=== PATIENT | male | born 1950 | race Caucasian/White ===

== ENCOUNTER 2017-02-25 12:34 | Emergency (ER) | payer BC ==
[~2017-02-25] VITALS: Ht 172.7 cm; Wt 68.0 kg
[~2017-02-25 12:34] MED LIST: ASPI81TA28 PO; ATOR-24 PO; CLB/200 PO; EPP3/2 IM; GABA-113 PO; MAGN400T6 PO; METO25TA3 PO; NCYSR50 PO; OSEL75CA12 PO; POTA20TA16 PO; SILO8CAP PO; TIOTCAP INH; ZNTT/150 PO
[2017-02-25 12:37] VITALS: Ht 172.7 cm; Wt 68.0 kg
[2017-02-25] MEDS ORDERED: SODIUM CHLORIDE 0.9% 1000ML 1,000 ML IV STA (12:59)
--- NOTE | 2017-02-25 13:01 | EMERGENCY ROOM VISIT NOTE ---
History First contact with patient: 12:47 Chief Complaint: ABDOMINAL PAIN Stated Complaint: PAIN IN R SIDE LIMITED MOTION Nursing Triage Summary: pt has had right lower side of abd pain for several weeks that hurts more in the am and today it did not get better no known injury no groin no urinary complaints no n/v/d History of Present Illness The patient is a 67 year old male who presents to the Emergency Room with complaints of right flank pain. The patient states that he has had pain in the right flank for the last several weeks. The patient states that he had been intermittent and worse with movement until this morning when the pain has become constant and persistent. He rates his discomfort a 3/10. He denies any known fall or injury. He denies any fevers. He denies any pain in his chest or trouble breathing. He denies any abdominal pain, nausea or vomiting. He denies any dysuric emergency, frequency or hematuria. He denies any numbness, tingling, weakness in the lower extremities. He denies any loss of bowel or bladder control. He reports a history of chronic back pain. He denies any history of kidney stone. Review of Systems A 10 system review of systems was completed with positives and pertinent negatives listed in the HPI. Past Medical/Surgical History Medical Problems: (1) Chronic low back pain (2) Hypertension (3) Rheumatic fever Surgical Problems: (1) H/O cardiac catheterization Family History Heart disease Hypertension Social History Smoking Status: Never Smoker Marital Status: Housing Status: lives with family Occupation Status: employed Current/Historical Medications Scheduled Aspirin (Aspirin Ec), 81 MG PO DAILY Atorvastatin (Lipitor), 40 MG PO DAILY Celecoxib (CeleBREX), 1 CAP PO DAILY Epinephrine (Epipen), 0.3 MG IM UD Gabapentin (Neurontin), 300 MG PO DAILY Magnesium Oxide (Mag-Ox), 400 MG PO QAM Metoprolol Succ (Toprol Xl) (Toprol-Xl), 12.5 MG PO BID Potassium Ext Rel (Klor-Con), 20 MEQ PO QAM Ranitidine (Zantac), 150 MG PO BID Silodosin (Rapaflo), 8 MG PO HS Tapentadol HCl (Nucynta ER), 50 MG PO DAILY Tiotropium [place] (Spiriva Handihaler), 1 CAP INH DAILY Allergies Coded Allergies: BEE STING (Verified Allergy, Unknown, localized swelling, 02/25/17) Penicillins (Verified Allergy, Unknown, rash, 02/25/17) Poison Tiffany Extract/Poison [place] Extra (Verified Allergy, Unknown, rash, ) Tetracycline (Verified Adverse Reaction, Unknown, STAINS TEETH, 02/25/17) Physical Exam Vital Signs Date Time Temp Pulse Resp B/P (MAP) Pulse Ox O2 Delivery O2 Flow Rate FiO2 02/25/17 15:26 36.8 44 16 142/67 97 02/25/17 15:01 44 16 142/67 97 Room Air 02/25/17 14:31 43 16 128/62 95 Room Air 02/25/17 12:37 36.8 45 18 132/67 98 Physical Exam VITALS: Vitals are noted on the nurse's note and reviewed by myself. Vital signs stable. The patient is afebrile. GENERAL: This is a 67-year-old male, in no acute distress, nondiaphoretic, well- developed well-nourished. SKIN: The skin was without rashes, erythema, edema, or bruising. There is no tenting of the skin. Capillary reflex less than 2 seconds. HEAD: Normocephalic atraumatic. EARS: The external ears are normal in appearance EYES: Pupils equal round and reactive to light and accommodation. Conjunctivae without injection, sclerae without icterus. Extraocular movements intact. NOSE: Patent, turbinates without inflammation or discharge. MOUTH: Mucous membranes moist. Tonsils are not enlarged. Pharynx without erythema or exudate. Uvula midline. Airway patent. Tongue does not deviate. NECK: Supple without nuchal rigidity. No JVD. HEART: Regular rate and rhythm without murmurs gallops or rubs. LUNGS: Clear to auscultation bilaterally without wheezes, rales or rhonchi. No retractions or accessory muscle use. ABDOMEN: Positive bowel sounds x 4. Soft, nontender, without masses or organomegaly. Vallecillo sign negative. MUSCULOSKELETAL: No muscle atrophy, erythema, or edema noted. Full range of motion without joint tenderness in all extremities. No tenderness to palpation. Normal gait. Strength 5/5 throughout. NEURO: Patient was alert and oriented to person place and time. Normal sensation to light and sharp touch. Deep tendon reflexes 2+ throughout. No focal neurological deficits. Medical Decision & Procedures ER Provider Diagnostic Interpretation: CT SCAN OF THE ABDOMEN AND PELVIS WITHOUT IV CONTRAST CLINICAL HISTORY: Right flank pain. COMPARISON STUDY: Abdominal CT dated 10/05/2015. TECHNIQUE: CT scan of the abdomen and pelvis is performed from the lung bases to the proximal femora. Images are reviewed in the axial, sagittal, and coronal planes. IV contrast was not administered for this examination as per the referring clinician. Automated dose control exposure was utilized. CT DOSE: 717.60 mGy.cm FINDINGS: Lung bases: The heart is mildly enlarged and without pericardial effusion. The lung bases are clear. Liver: The unenhanced liver is normal in size, contour, and attenuation. There is no intrahepatic biliary ductal dilatation. There are 2 cysts in the left lobe of the liver measuring up to 1.7 cm. Gallbladder: Contracted. Spleen: Normal in size and attenuation. Pancreas: Unenhanced pancreas demonstrates mild to moderate glandular atrophy and is grossly unremarkable. Adrenal glands: Unremarkable. Kidneys: The unenhanced kidneys demonstrate cortical atrophy and are without hydronephrosis. There are no renal calculi identified. There are bilateral renal cysts. The largest is on the right and measures 6 cm. Abdominal vasculature: The abdominal aorta is normal in course and caliber noting advanced atherosclerotic calcification. Bowel: The small bowel and colon are normal in course and caliber. Moderate fecal retention is noted in the right colon. The appendix is well-visualized and normal. Peritoneum: There is no intraperitoneal free air. There is a small volume of free fluid in the pelvis. There is a small fat-containing umbilical hernia. Lymphadenopathy: None. Pelvic viscera: The prostate gland is markedly enlarged and heterogeneous, measuring 6 cm in transverse diameter. The bladder wall is thickened and trabeculated suggesting the sequelae of chronic outlet obstruction. Skeletal structures: There is moderate lumbosacral spondylosis as well as scoliosis. No lytic or blastic lesions are seen. IMPRESSION: 1. There is trace free fluid in the pelvis. This is a nonspecific but abnormal finding and may be on a reactive basis. 2. No renal calculi are identified as clinically queried and there is no hydronephrosis. 3. Moderate fecal retention is noted in the right colon. 4. The prostate gland is markedly enlarged and heterogeneous. There is evidence of chronic bladder obstruction. Follow-up with serum PSA levels is recommended. 5. Additional findings as above. Laboratory Results 02/25/17 13:15 Red Blood Count 4.67, Mean Corpuscular Volume 93.4, Mean Corpuscular Hemoglobin 32.1, Mean Corpuscular Hemoglobin Concent 34.4, Mean Platelet Volume 9.8, Neutrophils (%) (Auto) 56.4, Lymphocytes (%) (Auto) 31.1, Monocytes (%) (Auto) 9.2, Eosinophils (%) (Auto) 2.8, Basophils (%) (Auto) 0.5, Neutrophils # (Auto) 3.17, Lymphocytes # (Auto) 1.75, Monocytes # (Auto) 0.52, Eosinophils # (Auto) 0.16, Basophils # (Auto) 0.03 02/25/17 13:15 Test 02/25/17 13:15 White Blood Count 5.63 K/uL (4.8-10.8) Red Blood Count 4.67 M/uL (4.7-6.1) Hemoglobin 15.0 g/dL (14.0-18.0) Hematocrit 43.6 % (42-52) Mean Corpuscular Volume 93.4 fL (80-100) Mean Corpuscular Hemoglobin 32.1 pg (25-34) Mean Corpuscular Hemoglobin Concent 34.4 g/dl (32-36) Platelet Count 193 K/uL (130-400) Mean Platelet Volume 9.8 fL (7.4-10.4) Neutrophils (%) (Auto) 56.4 % Lymphocytes (%) (Auto) 31.1 % Monocytes (%) (Auto) 9.2 % Eosinophils (%) (Auto) 2.8 % Basophils (%) (Auto) 0.5 % Neutrophils # (Auto) 3.17 K/uL (1.4-6.5) Lymphocytes # (Auto) 1.75 K/uL (1.2-3.4) Monocytes # (Auto) 0.52 K/uL (0.11-0.59) Eosinophils # (Auto) 0.16 K/uL (0-0.5) Basophils # (Auto) 0.03 K/uL (0-0.2) RDW Standard Deviation 46.6 fL (36.4-46.3) RDW Coefficient of Variation 13.7 % (11.5-14.5) Immature Granulocyte % (Auto) 0.0 % Immature Granulocyte # (Auto) 0.00 K/uL (0.00-0.02) Urine Color YELLOW Urine Appearance CLEAR (CLEAR) Urine pH 7.0 (4.5-7.5) Urine Specific [place] 1.022 (1.000-1.030) Urine Protein NEG (NEG) Urine Glucose (UA) NEG (NEG) Urine Ketones NEG (NEG) Urine Occult Blood NEG (NEG) Urine Nitrite NEG (NEG) Urine Bilirubin NEG (NEG) Urine Urobilinogen NEG (NEG) Urine Leukocyte Esterase NEG (NEG) Anion Gap 5.0 mmol/L (3-11) Est Creatinine Clear Calc Drug Dose 86.2 ml/min Estimated GFR () 107.1 Estimated GFR (Non- 92.4 BUN/Creatinine Ratio 23.5 (10-20) Calcium Level 8.4 mg/dl (8.5-10.1) Total Bilirubin 0.4 mg/dl (0.2-1) Aspartate Amino Transf (AST/SGOT) 20 U/L (15-37) Alanine Aminotransferase (ALT/SGPT) 27 U/L (12-78) Alkaline Phosphatase 51 U/L (45-117) Total Protein 6.3 gm/dl (6.4-8.2) Albumin 3.6 gm/dl (3.4-5.0) Globulin 2.7 gm/dl (2.5-4.0) Albumin/Globulin Ratio 1.3 (0.9-2) Lipase 138 U/L (73-393) ED Course The patient was seen and examined. Previous visits were reviewed. The patient does not have a fever or leukocytosis. He does not have any significant electrolyte abnormalities. Lipase was not elevated. Urinalysis was negative. CT imaging was obtained as above. The patient has bilateral renal cysts which he states are known There is a liver cyst which the patient was advised of The patient has enlargement of the prostate which he states has been ongoing. He also had surgery for a urachal cyst. He sees Dr. Quinn. The patient presents with right-sided flank pain. His pain is primarily worse with movement and may be musculoskeletal in nature. He does have some abnormal findings on CT imaging but most of which are known. The exact etiology of the patient's pain is not clear at this time. He should follow-up with his family doctor and urology for further evaluation and management. He should return to the ER with any worsening symptoms. Additionally, the patient was noted to have episodes of bradycardia. I did review previous visits even from 2014 and he was persistently bradycardic at those times. He states that he is quite active. The patient was also seen and examined by who agrees with the assessment and treatment plan. Medication Reconciliation: I attest that I have personally reviewed the patient' s current medication list. Blood pressure screening: The patient was found to have normal blood pressure on screening and does not require follow-up Medical Decision DIFFERENTIAL DIAGNOSIS: Hepatitis, cholecystitis, cholangitis, biliary colic, pancreatitis, pneumonia, subdiaphragmatic abscess, appendicitis, inguinal hernia , nephrolithiasis, inflammatory bowel disease, mesenteric adenitis, peptic ulcer disease, GERD, gastritis, pancreatitis, myocardial infarction, pericarditis, ruptured aortic aneurysm, appendicitis, gastroenteritis, bowel obstruction, splenic infarct, diverticulitis, mesenteric ischemia, metabolic, peritonitis, among others. Impression Primary Impression: Flank pain Departure Information Dispostion Home / Self-Care Condition GOOD Referrals Lu Lindo M.D. (PCP) Ye Quinn MD, Urology Patient Instructions ED Flank Pain Uncertain Cause, My [facility] Additional Instructions Continue your medications Increase the stool softener/laxative Contact urology tomorrow to schedule a follow-up appointment for further evaluation and management Return with any worsening symptoms
[2017-02-25] MEDS ORDERED: SPRIN/30 INH (13:02)
--- NOTE | 2017-02-25 13:40 | DIAGNOSTIC IMAGING REPORT ---
CT SCAN OF THE ABDOMEN AND PELVIS WITHOUT IV CONTRAST CLINICAL HISTORY: Right flank pain. COMPARISON STUDY: Abdominal CT dated 10/05/2015. TECHNIQUE: CT scan of the abdomen and pelvis is performed from the lung bases to the proximal femora. Images are reviewed in the axial, sagittal, and coronal planes. IV contrast was not administered for this examination as per the referring clinician. Automated dose control exposure was utilized. CT DOSE: 717.60 mGy.cm FINDINGS: Lung bases: The heart is mildly enlarged and without pericardial effusion. The lung bases are clear. Liver: The unenhanced liver is normal in size, contour, and attenuation. There is no intrahepatic biliary ductal dilatation. There are 2 cysts in the left lobe of the liver measuring up to 1.7 cm. Gallbladder: Contracted. Spleen: Normal in size and attenuation. Pancreas: Unenhanced pancreas demonstrates mild to moderate glandular atrophy and is grossly unremarkable. Adrenal glands: Unremarkable. Kidneys: The unenhanced kidneys demonstrate cortical atrophy and are without hydronephrosis. There are no renal calculi identified. There are bilateral renal cysts. The largest is on the right and measures 6 cm. Abdominal vasculature: The abdominal aorta is normal in course and caliber noting advanced atherosclerotic calcification. Bowel: The small bowel and colon are normal in course and caliber. Moderate fecal retention is noted in the right colon. The appendix is well-visualized and normal. Peritoneum: There is no intraperitoneal free air. There is a small volume of free fluid in the pelvis. There is a small fat-containing umbilical hernia. Lymphadenopathy: None. Pelvic viscera: The prostate gland is markedly enlarged and heterogeneous, measuring 6 cm in transverse diameter. The bladder wall is thickened and trabeculated suggesting the sequelae of chronic outlet obstruction. Skeletal structures: There is moderate lumbosacral spondylosis as well as scoliosis. No lytic or blastic lesions are seen. IMPRESSION: 1. There is trace free fluid in the pelvis. This is a nonspecific but abnormal finding and may be on a reactive basis. 2. No renal calculi are identified as clinically queried and there is no hydronephrosis. 3. Moderate fecal retention is noted in the right colon. 4. The prostate gland is markedly enlarged and heterogeneous. There is evidence of chronic bladder obstruction. Follow-up with serum PSA levels is recommended. 5. Additional findings as above. Electronically signed by: Jay Mayes M.D. 02/25/2017 1:39 PM Dictated Date/Time: 02/25/2017 1:30 PM
[2017-02-25 13:44] LABS: BASO % 0.5 %; BASO ABS # 0.03 K/uL (0-0.2); COMPLETE YES; EOS % 2.8 %; HEMATOCRIT 43.6 % (42-52); LYMPH % 31.1 %; LYMPH ABS # 1.75 K/uL (1.2-3.4); MEAN CELL VOLUME 93.4 fL (80-100); MEAN CORPUSCULAR HEMOGLOBIN 32.1 pg (25-34); MEAN CORPUSCULAR HGB CONC 34.4 g/dl (32-36); MEAN PLATELET VOLUME 9.8 fL (7.4-10.4); MONO % 9.2 %; NEUT % 56.4 %; PLATELET COUNT 193 K/uL (130-400); RED BLOOD COUNT 4.67 M/uL (4.7-6.1); URINE APPEARANCE CLEAR (CLEAR); URINE BILIRUBIN NEG (NEG); URINE COLOR YELLOW; URINE NITRITE NEG (NEG); URINE SPECIFIC GRAVITY 1.022 (1.000-1.030); UROBILINOGEN NEG (NEG); WHITE BLOOD COUNT 5.63 K/uL (4.8-10.8); ZZUR CULT IF INDIC CLEAN CATCH NO
[2017-02-25 13:45] LABS: MANUAL MICROSCOPIC REQUIRED? NO; REVIEW REQ? NO
[2017-02-25 14:10] LABS: BUN/CREATININE RATIO 23.5 (10-20); CALCIUM 8.4 mg/dl (8.5-10.1); CREATININE 0.8 mg/dl (0.60-1.40); POTASSIUM 4.2 mmol/L (3.5-5.1)
[2017-02-25 14:13] LABS: ALB/GLOB RATIO 1.3 (0.9-2)
[2017-02-25 15:26] VITALS: BP 142/67; PULSE 44; TEMP 36.8; O2SAT 97
== END 2017-02-25 15:27 | disposition home or self-care (01) ==
LOC: C.EDB 12:35 → C.EDC 15:27
DX: R10.31 Right lower quadrant pain (principal); G89.29 Other chronic pain; M54.5 Low back pain; I10 Essential (primary) hypertension; Z86.19 Personal history of other infectious and parasitic diseases; Z82.49 Family history of ischemic heart disease and other diseases of the circulatory system; Z79.82 Long term (current) use of aspirin; N28.1 Cyst of kidney, acquired; K76.89 Other specified diseases of liver; N40.0 Benign prostatic hyperplasia without lower urinary tract symptoms

== ENCOUNTER → 2017-11-15 | Outpatient (CLI) | payer BC ==
[~2017-11-15] MED LIST changes: -OSEL75CA12 PO; +RANI150T85 PO; +SPRIN/30 INH; -TIOTCAP INH; -ZNTT/150 PO
--- NOTE | 2017-11-15 09:51 | DIAGNOSTIC IMAGING REPORT ---
CHEST 2 VIEWS ROUTINE CLINICAL HISTORY: R05 [id number] COMPARISON STUDY: No previous studies for comparison. FINDINGS: The cardiac and mediastinal contours are normal. There is no evidence of focal pulmonary consolidation. There is no evidence of failure. No pleural effusions are visualized.[ IMPRESSION: No active disease in the chest. Electronically signed by: Bakari Velasquez M.D. 11/15/2017 9:49 AM Dictated Date/Time: 11/15/2017 9:49 AM
== END | disposition home or self-care (01) ==
LOC: C.RAD1850 09:35
PROVIDERS: ATTEND Internal Medicine Pulmonary Disease
DX: R05 Cough (principal)

== ENCOUNTER 2023-09-30 12:01 | Observation (INO) ==
--- NOTE | 2023-09-30 12:08 | ED Triage Note ---
Date of Service September 30, 2023 Provider in Triage Author: Mónica Marvin History of Present Illness This patient was briefly evaluated while in triage. An abbreviated physical exam was performed. This patient is a 73-year-old Male who presents to the ED for evaluation hx of afib, HTN, pacemaker at home about 1 hr [employer], felt acutely dizzy laid down, and things were improved, but still didn't feel "right" no CP, SOB, no palpitations Physical Exam GENERAL: NAD, ambulatory into triage CARDIOVASCULAR: RRR RESPIRATORY: CTA ABDOMEN: BS x 4. Nontender to palpation. Initial orders for labs and / or imaging were placed and patient was placed in the waiting area until a bed is available. Please see further documentation for the full ED course.
--- OUTSIDE RECORDS SUMMARY | 2023-09-30 12:09 | External Medical Summary | Summary of Care ---
Author Name Unknown Organization [facility] Address [address] [place] [address] Phone [phone] Care Team Providers Care Elderly Sitter Name Role Phone Alphonso Sarabjit Renteria DO Primary Care Provider [phone] Encounter Details Date Type Department Care Team (Late st Contact Info) Description 09/21/2023 Result Scan Unspecified Department Rocío King DO [address] [place] [address] <No scans attached> Allergies Active Allergy Reactions Criticality Noted Date Comments Bee Stings 04/21/1998 systemic swelling and throat closes up Penicillins 09/25/1997 rash Poison Tiffany Extract Rash High 12/29/2003 Tetracyclines & Related 08/18/1998 causes brown stains on teeth documented as of this encounter (statuses as of 09/21/2023) Medications Medication Sig Dispensed Refills Start Date End Date Status VITAMINS & MINERALS PO CAPS Take by mouth daily with dinner. 0 02/27/2006 Active Magnesium Oxide 400 MG CapsuleIndications:A trial fibrillation, unspecified type (HCC) 1 daily 90 Cap 3 11/07/2016 Active Additional Information Patient taking differently: DINNER, 1 daily, Reported on 09/01/2022 EPINEPHrine, anaphylaxis, (EPI-PEN) 0.3 MG/0.3ML SOAJ injectionIndications :Bee sting allergy For a severe reaction: Place orange end against the outer thigh, press firmly, hold in place for 10 seconds and go to the Emergency room. 2 Device 1 11/27/2017 Active albuterol (PROVENTIL HFA) 108 (90 BASE) MCG/ACT inhalerIndications:C OPD, moderate ([facility]) Inhale 2 Puffs by mouth every 4 hours as needed for Wheezing. 1 Inhaler 3 11/27/2017 Active Coenzyme Q10 (COQ-10) 100 MG CAPS Take 1 Capsule by mouth daily with dinner. 0 Active Probiotic Product (PROBIOTIC ACIDOPHILUS BIOBEADS) Capsule Take 1 Capsule by mouth in the morning. 0 Active Ascorbic Acid (VITAMIN C) 1000 MG Tablet Take 1 Tablet by mouth daily at noon. 0 Active Cholecalciferol (VITAMIN D3) 25 MCG (1000 UT) CAPS Take by mouth daily with dinner. 0 Active Trelegy Ellipta 100-62.5-25 MCG/INH Aerosol Powder Breath ActivatedIndications :COPD, group A, by GOLD 2017 classification ([facility]) 0 05/20/2021 Acti ve Acetylcysteine 600 MG Oral Capsule (NAC) Take 1 Capsule by mouth in the morning and 1 Capsule in the evening. 0 Active Calcium Carbonate Antacid 500 MG Oral Tablet Chewable Take 2 Tablets by mouth at bedtime. 0 Active Super B-50 Complex Oral Capsule Take by mouth daily with dinner. 0 Active Tylenol PM Extra Strength 500-25 MG Oral Tablet (diphenhydrAMINE-APA P (sleep)) Take 1 Tablet by mouth at bedtime. 0 Active Docusate Sodium 100 MG Oral Capsule (Colace) Take 1 Capsule by mouth in the morning and 1 Capsule before bedtime. 0 Active Gabapentin 300 MG Oral Capsule (Neurontin)Indicatio ns:Degeneration of lumbosacral intervertebral disc Take 1 Capsule by mouth in the morning and 1 Capsule before bedtime. 180 Capsule 3 10/31/2022 Active Acetaminophen 500 MG Oral Tablet Take 1 Tablet by mouth every 6 hours as needed. 0 Active Ibuprofen 200 MG Oral Tablet Take 1 Tablet by mouth every 4 hours as needed. 0 Active Famotidine 40 MG Oral Tablet (Pepcid)Indications: Gastroesophageal reflux disease without esophagitis TAKE 1 TABLET IN THE MORNING AND 1 TABLET BEFORE BEDTIME 180 Tablet 3 07/06/2023 Active Celecoxib 100 MG Oral Capsule (CeleBREX)Indication s:Chronic pain syndrome Take 1 Capsule by mouth in the morning. 90 Capsule 2 07/17/2023 Active Atorvastatin Calcium 40 MG Oral Tablet (Lipitor)Indications :Mixed dyslipidemia TAKE 1 TABLET IN THE EVENING FOR CHOLESTEROL 90 Tablet 3 07/19/2023 Active Metoprolol Succinate ER 25 MG Oral Tablet Extended Release 24 Hour (toPROL XL)Indications:SSS (sick sinus syndrome) (HCC),Tachy-maximiliano syndrome (HCC),PAF (paroxysmal atrial fibrillation) (HCC),Frequent PVCs,Hypertrophic cardiomyopathy (HCC) Take 1 Tablet by mouth in the morning and 1 Tablet before bedtime. 180 Tablet 3 08/21/2023 Active Dutasteride 0.5 MG Oral Capsule (Avodart)Indications :BPH without obstruction/lower urinary tract symptoms TAKE 1 CAPSULE IN THE MORNING 90 Capsule 3 08/21/2023 Active Amiodarone HCl 200 MG Oral Tablet (Cordarone)Indicatio ns:Hypertrophic cardiomyopathy (HCC) Take 1 Tablet by mouth in the morning. 90 Tablet 3 08/21/2023 Active Potassium Chloride Shaina ER 20 MEQ Oral Tablet Extended Release (Klor-Con M20)Indications:Hype rtension goal BP (blood pressure) < 140/80 TAKE 1 TABLET IN THE MORNING 90 Tablet 3 08/21/2023 Active Tapentadol HCl ER 50 MG Oral Tablet Extended Release 12 Hour (Nucynta ER)Indications:MEDIC ATION USE AGREEMENT,Other chronic pain Take 1 Tablet by mouth in the morning and 1 Tablet before bedtime. 60 Tablet 0 08/21/2023 Active predniSONE 10 MG Oral Tablet (Deltasone) TAKE 4 TABLETS BY MOUTH ONCE DAILY FOR 3 DAYS, THEN TAKE 3 TABLETS DAILY FOR 3 DAYS, THEN TAKE 2 TABLETS DAILY FOR 3 DAYS, THEN 1 TABLET JONAH 0 09/05/2023 Active Sulfamethoxazole-Tri methoprim 800-160 MG Oral Tablet (Bactrim DS) Take 1 Tablet by mouth in the morning and 1 Tablet before bedtime. 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 Increased risk for Hypertrophic Cardiomyopathy. Bladder neoplasm 11/07/2016 HTN, goal below 140/90 03/06/2016 Overview: Per HTN Protocol MEDICATION USE AGREEMENT 09/10/2015 Overview: Signed 09/10/2015 [facility] Dyslipidemia, goal LDL below 100 08/24/2011 Hypertrophic cardiomyopathy 04/14/2009 ADVANCE DIRECTIVE INFORMATION 11/22/2008 Overview: No, Advance Directive brochure given to patient at prior appointment. BPH without obstruction/lower urinary tract symp toms 06/05/2006 LUMB-LUMBOSAC DISC DEGEN 12/05/2005 FAM HX COLON CANCER- father 12/07/2004 [place] CERVICAL SPINE 08/15/2002 Tobacco use disorder 04/21/1998 Esophageal reflux documented as of this encounter (statuses as of 09/21/2023) Resolved Problems Problem Noted Date Diagnosed Date Resolved Date Hypertrophic cardiomyopathy 11/07/2016 11/07/2016 Bladder cancer 02/12/2015 11/07/2016 Overview: Dr. Ye Quinn Other seborrheic keratosis 04/29/2014 1 09/24/2018 MEDICATION USE AGREEMENT 06/17/2013 Overview: Pain Mgmt- [facility]- signed 06/10/2013 Hypertension goal BP (blood pressure) < 140/80 03/04/2013 03/09/2016 Overview: Per HTN Protocol Carpal tunnel syndrome 10/21/200907/25 Dyslipidemia, goal to be determined 09/06/2009 01/04/2010 Overview: Per Lipid Taxonomy. ANGIODYSPLASIA OF INTESTINE (WITHOUT MENTION OF HEMORRHAGE) 11/27/2000 06/05/2018 ABN FIND-STOOL CONTENTS - positive hemacult 06/17/2000 06/05/2018 Myalgia and myositis 04/19/2000 019 UNSPECIFIED GASTRITIS AND GA STRODUODENITIS WITHOUT MENTION OF HEMORRHAGE 11/18/1998 05/29/2017 COPD, moderate 04/21/1998 05/06/2020 Overview: PFT done 06/13/2001 at [facility] Mixed dyslipidemia 04/21/1998 9 Overview: Per Lipid Taxonomy. Diaphragmatic hernia 019 documented as of this encounter (statuses as of 09/21/2023) Immunizations Name Administration Dates Next Due COVID-19 mRNA, LNP-s, No Pre serve, 2-Dose Series (Pfizer) 12/27/2021,06/29/2021,12/03/2020,11/07 Covid-19, Mrna, Lnp-s, Pf, B ivalent, 30 Mcg, IM, 12 yrs and above (Pfizer) 07/14/2022 H1N1 2009 Influenza, IM 08/08/2009 Pneumococcal Conjugate Vacc, 13 Valent (Prevnar) 06/08/2015 Pneumococcal Polysaccharide PPV23 (Pneumovax) 11/07/2016,08/24/2011 Season Influenza, Quad, PF, Adjuvanted, 65+ Yrs, IM (FLUAD) 06/15/2020 Seasonal Influenza, PF, 6 M & above, IM , (FluLaval or Fluzone) 06/17/2019,06/05/2018 Seasonal Influenza, Quadriva lent Hd (Fluzone Hd) 07/11/2022,06/29/2021 Seasonal Influenza, Quadriva lent, No Preserve, IM 06/06/2017,06/09/2016 Seasonal Influenza, Split, I IV3, With Preserve, Inj 06/08/2015,06/03/2014,07/02/2013,07/04,06/21/2011,06/09/2010,07/06/2009 ,06/23/2008,06/18/2007,07/10/2006 TD, Preservative Free 04/01/2020 TDAP (age 11 and older)(Adacel) 07/06/2009 Varicella Zoster Vaccine (Adult) 02/27/2012 Zoster Vaccine Recombinant (Shingrix) 03/13/2018 ,11/28/2017 documented as of this encounter Social History Tobacco Use Types Packs/Day Years Used Date Smoking Tobacco: Every Day Cigarettes 0.5 48 Smokeless Tobacco: Never Comments:1/2 pk per day sin e [id number] 1 ppd for many years-12 cigarettes a day Alcohol Use Standard Drinks/Week Comments Yes 0 (1 standard drink = 0.6 oz pure alcohol) 4-5 drinks weekly-beer with supper occasionally AUDIT-C Answer Date Recorded Q1: How often do you have a drink containing alcohol? 4 or more times a week 04/01/2021 Q2: How many drinks containi ng alcohol do you have on a typical day when you are drinking? 1 or 2 Q3: How often do you have si x or more drinks on one occasion? Not asked 04/01/2021 PHQ-2 Answer Date Recorded PHQ Adult Total Score 2 04/04/2022 Hunger Vital Sign Answer Date Recorded Within the past 12 months, y ou worried that your food would run out before you got the money to buy more. Never true 04/04/20 22 Within the past 12 months, t he food you bought just didn't last and you didn't have money to get more. Never true 04/04/2022 Sex and Gender Information Value Date Recorded Sex Assigned at Male 12/10/2018 8:09 AM EDT Gender Identity Male 12/10/2018 8:09 AM EDT Sexual Orientation Straight 12/10/2018 8: 09 AM EDT Job Start Date Occupation Industry Not on file Not on file Not on file documented as of this encounter Plan of Treatment Upcoming Encounters Date Type Department Care Team (Late st Contact Info) Description 01/10/2024 9:15 AM EDT Office Visit Dermatology [facility] [address] [place] [address] Dorothy Henry MD [address] [place] [address] 01/15/2024 8:00 AM EDT Office Visit Cardiology, [facility] [address] [facility] [place] [address] Daja Purcell CRNP [address] [facility] [place] [phone] 03/18/2024 8:40 AM EDT Office Visit Family Practice [facility] [place] [address] [facility] [place] [address] Sarabjit Werner DO [address] [facility] [place] [address] 09/09/2024 9:00 AM EST Office Visit Dermatology, [facility] [address] [place] [address] Halie Bear PA-C [address] [place] [address] Scheduled Procedures Name Priority Associated Diagnoses Date/Ti me COLONOSCOPY FLEXIBLE PROXIMA L DIAGNOSTIC Recall Family history of colon cancer History of colonic polyps Health Maintenance Due Date Last Done Comments Alpha-1 Antitrypsin 02/04/1968 DISCUSS TOBACCO CESSATION (REFER TO SMARTSET #3291) 05/08/2016 05/08/2015 (Done elsewhere) Depression Screening 04/04/2023 04/04/2022 COVID-19 Vaccine ( season) 2023 07/14/2022, 12/27/2021, 06/29/2021, Additional history exists Influenza Vaccine (FLU shot) (#1) 2023 07/11/2022, 06/29/2021, 06/15/2020, Additional history exists O2 ASSESSMENT COMPLETED IN PAST YEAR FOR COPD 02/29/2024 02/28/2023 GFR 07/10/2024 07/10/2023, 02/0 03/2023, 08/31/2022, Additional history exists COLONOSCOPY-EVERY 5 YRS AGES 18-100 04/15/2025 04/15/2020, 04/15/2020, 03/16/2015, Additional history exists Albumin/Creatinine Ratio 08/31/2025 08/31/2022, 06/24 Lipid Panel 07/10/2028 07/10/2023, 06/24, 06/21/2021, Additional history exists DTaP,Tdap,and Td Vaccines (3 - Td or Tdap) 04/01/2030 04/01/2020, 07/06/2009, 05/11/1999 LUNG CANCER SCREENING - USE SMARTSET 06673 Completed 10/17/2001 AAA Screening Completed 04/19/2016, 09/24, 05/23/2002 Pneumococcal Vaccine: 65+ Years Completed 11/07/2016, 06/08/2015, 08/24/2011, Additional history exists Zoster Vaccines Completed 03/13/2018, 03/2018, 02/27/2012 GARDASIL-HPV IMMUNIZATION SERIES Aged Out No longer eligible based on patient's age to complete this topic Hepatitis B Aged Out No longer eligi ble based on patient's age to complete this topic MENINGOCOCCAL (MENACTRA/MENVEO) Aged Out No longer eligible based on patient's age to complete this topic documented as of this encounter Medical Devices Not on filedocumented as of this encounter Procedures Procedure Name Priority Date/Time Associated Diagnosis Comments CARDIOLOGY SCANNED RESULT 09/21/2023 documented in this encounter Results * CARDIOLOGY SCANNED RESULT (09/21/2023) 09/21/2023 Rocío King DO OTHER documented in this encounter Care Teams Elderly Sitter Relationship Specialty Start Date End Date Sarabjit Werner DO [address] [place] [address] PCP - General Family Medicine 04/15/20 documented as of this encounter
[2023-09-30] MEDS ORDERED: OPTIRAY 320 125ml IV ONE (12:46)
[2023-09-30 12:51] LABS: Basophils # (auto) 0.03 K/uL (0.00-0.20); Basophils % (auto) 0.5 %; Eosinophils # (auto) 0.01 K/uL (0.00-0.50); Eosinophils % (auto) 0.2 %; Hematocrit (blood only) 36.5 % (42.0-52.0); Hemoglobin 12.2 g/dl (14.0-18.0); Immature Granulocytes # (auto) 0.03 K/uL (0.01-0.20); Immature Granulocytes % (auto) 0.5 %; Lymphocytes # (auto) 0.61 K/uL (1.20-3.40); Lymphocytes % (auto) 9.3 %; Mean Corpuscular Hemoglobin 34.4 pg (25.0-34.0); Mean Corpuscular Hgb Conc 33.4 g/dL (32.0-36.0); Mean Corpuscular Volume 102.8 fL (80.0-100.0); Mean Platelet Volume 9.3 fL (9.4-12.4); Monocytes # (auto) 0.31 K/uL (0.11-0.59); Monocytes % (auto) 4.7 %; Neutrophils # (auto) 5.55 K/uL (1.40-6.50); Neutrophils % (auto) 84.8 %; Platelet Count 178 K/uL (130-400); RDW Coefficient of Variation 16.8 % (11.5-14.5); RDW Standard Deviation 63.5 fL (36.4-46.3); Red Blood Count 3.55 M/uL (4.70-6.10); White Blood Count 6.54 K/ul (4.8-10.8)
[2023-09-30 12:53] LABS: iSTAT Creatinine 1.1 mg/dl (0.6-1.3); iSTAT Hemoglobin 12.6 g/dl (14.0-18.0); iSTAT Ionized Calcium 1.19 mmol/l (1.12-1.32); iSTAT Potassium 4.6 mmol/L (3.3-5.0)
[2023-09-30 13:06] LABS: Albumin Globulin Ratio 1.9 (0.9-2); BUN Creatinine Ratio 18.8 (10-20); Bilirubin,Total 0.6 mg/dl (0.2-1.0); Creatinine Clr Calc Pharmacy 52.8 ml/min; Est GFR (African American) 75.1 ml/min; Est GFR (Non-African American) 64.8 ml/min; Globulin 2.1 gm/dl (2.5-4.0); Potassium 4.6 mmol/L (3.5-5.1); Total Protein 6.1 gm/dl (6.0-8.3)
[2023-09-30 13:17] LABS: Partial Thromboplastin Ratio 0.7; Partial Thromboplastin Time 21 Seconds (21-31); Prothrombin Time 10.6 Seconds (9.0-12.0)
[2023-09-30 13:24] LABS: Troponin I High Sensitivity 118.6 pg/ml (0-20)
--- NOTE | 2023-09-30 13:24 | CT Scan Report ---
HEAD CT NONCONTRAST CT DOSE: HISTORY: dizziness, near syncope TECHNIQUE: Multiaxial CT images of the head were performed without the use of intravenous contrast. A utomated exposure control was utilized for this study. A dose lowering technique was utilized adheri ng to the principles of ALARA. Comparison: None. Findings: The paranasal sinuses and mastoid air cells are clear. The calvarium and skull base are int act. The ventricles and sulci are within normal limits. There is no mass, hematoma, midline shift, or acute infarct. Impression: No acute intracranial abnormality. ACT 112: Negative or not required by law. Electronically signed by: Akil Rolle M.D. 09/30/2023 1:22 PM
--- NOTE | 2023-09-30 13:29 | CT Scan Report ---
HEAD & NECK CTA HISTORY: dizziness, near syncope TECHNIQUE: Multiaxial CT images of the head were performed following the intravenous administration o f contrast to evaluate the major cerebral vessels. Multiaxial CT images of the neck were also perform ed following the intravenous administration of contrast to evaluate the major cervical vessels. 3D/MT P images were also obtained. Sagittal and coronal reformats were reviewed. A dose lowering technique was utilized adhering to the principles of ALARA. COMPARISON: Head CT 09/30/2023. FINDINGS: There is no mass, hematoma, midline shift, or acute infarct. Visualized intracranial internal carotid arteries, distal vertebral arteries, and basilar artery are widely patent. 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 Mild to moderate calci fied plaque within the bilateral carotid siphons. The major dural venous sinuses are patent. The aortic arch and proximal great vessels are widely patent. There is no significant stenosis, occ lusion, or dissection identified within the bilateral common carotid, internal carotid, or vertebral arteries. Mild emphysema. Left-sided pacemaker wires are noted. Mild to moderate calcified plaque wit hin the bilateral carotid bifurcations. IMPRESSION: 1. No significant stenosis, occlusion, or aneurysm within the [place] of [place]. 2. No significant stenosis, occlusion, or dissection identified within the carotid or vertebral arter ies. ACT 112: Negative or not required by law. Electronically signed by: Akil Rolle M.D. 09/30/2023 1:27 PM
--- NOTE | 2023-09-30 13:29 | CT Scan Report ---
HEAD & NECK CTA HISTORY: dizziness, near syncope TECHNIQUE: Multiaxial CT images of the head were performed following the intravenous administration o f contrast to evaluate the major cerebral vessels. Multiaxial CT images of the neck were also perform ed following the intravenous administration of contrast to evaluate the major cervical vessels. 3D/KS P images were also obtained. Sagittal and coronal reformats were reviewed. A dose lowering technique was utilized adhering to the principles of ALARA. COMPARISON: Head CT 09/30/2023. FINDINGS: There is no mass, hematoma, midline shift, or acute infarct. Visualized intracranial internal carotid arteries, distal vertebral arteries, and basilar artery are widely patent. 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 Mild to moderate calci fied plaque within the bilateral carotid siphons. The major dural venous sinuses are patent. The aortic arch and proximal great vessels are widely patent. There is no significant stenosis, occ lusion, or dissection identified within the bilateral common carotid, internal carotid, or vertebral arteries. Mild emphysema. Left-sided pacemaker wires are noted. Mild to moderate calcified plaque wit hin the bilateral carotid bifurcations. IMPRESSION: 1. No significant stenosis, occlusion, or aneurysm within the [place] of [place]. 2. No significant stenosis, occlusion, or dissection identified within the carotid or vertebral arter ies. ACT 112: Negative or not required by law. Electronically signed by: Akil Rolle M.D. 09/30/2023 1:27 PM
--- NOTE | 2023-09-30 13:48 | XRay Report ---
XR chest 1V not portable HISTORY: dizziness, near syncope COMPARISON: Chest 09/14/2023. FINDINGS: No pneumothorax. No pleural effusions. The lungs are clear. The heart is normal in size. Th ere is a left-sided dual-chamber pacemaker. No acute fractures identified. Calcifications within the aortic knob again noted. IMPRESSION: No significant change compared to the prior study. No acute process. ACT 112: Negative or not required by law. Electronically signed by: Akil Rolle M.D. 09/30/2023 1:46 PM
--- NOTE | 2023-09-30 16:16 | History & Physical Report ---
Date of Service September 30, 2023 Assessment & Plan (1) Dizziness: (2) Elevated troponin: Plan: ? Presyncope Patient is 73-year-old male with PMH SSS s/p pacemaker, paroxysmal atrial fibrillation, hypertrophic cardiomyopathy, HTN, dyslipidemia, COPD, BPH, tobacco use presented to ER with complaint of "dizziness" episode today, lasted approximately a minute followed by "feeling off" for couple of hours. He reports while this occurred he felt like his vision "intensified" and loss of vision or diplopia or blurry vision In ER vital stable, no leukocytosis, H/H: 12.2/36, random glucose: 151, no other significant electrolyte abnormality Troponin: 118--> [address] head: No acute intracranial abnormality CTA head and neck: No significant stenosis, occlusion, or aneurysm within the [place]. No significant stenosis, occlusion, or dissection identified within the carotid or vertebral arteries. CXR: No significant change compared to the prior study. No acute process. Patient without chest pain, shortness of breath, palpitations. Currently asymptomatic and no recurrent dizziness DDX: TIA, arrhythmia. Less likely suspect ACS Monitor on telemetry Obtain orthostatic vital signs Pacemaker interrogation Trend troponin Echo CBC, BMP, lipid panel, A1c, TSH in a.m. EKG in a.m. Continue atorvastatin, metoprolol succinate Cardiology consult If would develop recurrent dizziness episodes may consider neurology consult (3) Sick sinus syndrome: (4) Pacemaker: Plan: S/p pacemaker Pacemaker interrogation (5) Paroxysmal atrial fibrillation: Plan: Not on anticoagulation. Per review of outpatient cardiology note discussion on starting Eliquis, patient decided to withhold Eliquis at this time. There was discussion of patient had recurrent atrial fibrillation or atrial fibrillation lasting greater than 6 hours Eliquis was to be started Continue amiodarone, metoprolol succinate (6) Hypertension: Plan: Stable Continue metoprolol succinate (7) Hyperlipidemia: Plan: Continue atorvastatin (8) COPD with emphysema: Plan: No signs acute exacerbation Continue home inhalers (9) BPH (benign prostatic hyperplasia): Plan: Continue dutasteride (10) Tobacco use: Plan: 0.5 ppd Denies nicotine patch Smoking cessation encouraged DVT Prophylaxis Lovenox SQ Full code as per discussion with pt Follows with Dr Sarabjit Werner for routine care Pt was seen and care coordinated with Dr Tamayo. See addendum History of Present Illness Chief Complaint: Dizziness Primary Care Provider: Sarabjit Werner DO Patient is 73-year-old male with PMH SSS s/p pacemaker, paroxysmal atrial fib rillation, hypertrophic cardiomyopathy, HTN, dyslipidemia, COPD, BPH, tobacco use presented to ER with complaint of "dizziness" episode today. History obtained from patient, patient's spouse as well as outpatient chart review. Patient states this morning around 11:00 had episode where he felt "intense dizziness". Patient states might of felt like he was going to pass out but definitely did not feel like a spinning sensation. He states this dizziness lasted approximately a minute. He reports while this occurred he felt like his vision "intensified". Denies loss of vision or diplopia or blurry vision. Denies any associated chest pain, shortness of breath, palpitations. Denies syncope. Reports for several hours after he felt "not his self and felt off". Denies any CP, SOB, palpitations since. States he feels like he is back to his normal self. Reports history of COVID-19 in May 2023 and since has had continued cough. Patient states has followed up with Dr. Dykes. He states he has been on several rounds of antibiotics as well as prednisone tapers. Reports recently finished prednisone taper. He feels cough may have decreased very slightly but still continues. Reports mostly coughs at night. Per outpatient note patient was last seen by EP cardiology on 07/10/2023, at that time had device check with some episodes of atrial fibrillation reported longest reported 3 and half hours. Patient opted to not start anticoagulation with Eliquis at that visit. Stress echo: 10/21/2019: Negative for inducible ischemia. Denies fever/chills, diaphoresis, N/V/D/C, SPARKS, vision loss, diplopia, blurry vision, neck pain, hemoptysis, sore throat, choking, otalgia, rhinorrhea, abdominal pain, paresthesias, weakness, extremity weakness, extremity edema, rashes, urinary symptoms. Allergies Allergy/AdvReac Type Severity Reaction Status Date / Time bee venom protein (honey bee) Allergy Unknown localized Verified 09/14/23 13:01 swelling Penicillins Allergy Unknown rash Verified 09/14/23 13:01 tetracycline AdvReac Unknown STAINS Verified 09/14/23 13:01 TEETH Poison Tiffany Extract/Poison Allergy Unknown rash Uncoded 09/14/23 13:01 [place] Extra Home Medications Medication Instructions Recorded Confirmed Type atorvastatin 40 mg tablet 40 mg PO PM 06/03/19 09/30/23 History celecoxib 100 mg capsule (Celebrex) 100 mg PO PM 06/03/19 09/30/23 History dutasteride 0.5 mg capsule 0.5 mg PO DAILY 06/03/19 09/30/23 History gabapentin 300 mg capsule 300 mg PO BID 06/03/19 09/30/23 History (Neurontin) magnesium oxide 400 mg PO PM 06/03/19 09/30/23 History potassium chloride 20 mEq 20 meq PO PM 06/03/19 09/30/23 History tablet,extended release(part/cryst) (Klor-Con M) tapentadol 50 mg tablet,extended 50 mg PO BID PRN Pain 06/03/19 09/30/23 History release,12 hr (Nucynta ER) famotidine 40 mg tablet 40 mg PO BID 06/30/21 09/30/23 History ascorbic acid (vitamin C) 1,000 mg 1 g PO DAILY 07/05/22 09/30/23 History tablet cholecalciferol (vitamin D3) 25 25 mcg PO PM 07/05/22 09/30/23 History mcg (1,000 unit) capsule coenzyme Q10 100 mg capsule 100 mg PO DAILY 07/05/22 09/30/23 History epinephrine 0.3 mg/0.3 mL 1 ml subcut DAILY PRN Anaphylaxis 07/05/22 09/30/23 History injection, auto-injector metoprolol succinate 25 mg 25 mg PO BID #60 tabs 07/05/22 09/30/23 Rx tablet,extended release 24 hr vitamin B complex 1 cap PO PM 07/05/22 09/30/23 History amiodarone 200 mg tablet 200 mg PO DAILY 01/17/23 09/30/23 History albuterol sulfate 90 mcg/actuation 2 puff inhalation QID PRN Wheezing 09/14/23 09/30/23 Rx aerosol inhaler (Proventil HFA) #8.5 grams calcium carbonate 500 mg calcium 1,000 mg PO HS 09/30/23 09/30/23 History (1,250 mg) chewable tablet fluticasone fur. 100 mcg-umeclid 2 inh inhalation DAILY 09/30/23 09/30/23 History 62.5 mcg-vilant 25 mcg inhalat.powder (Trelegy Ellipta) Past Med/Surg History Medical History (Updated 09/30/23 @ 17:05 by Rand Tyler PA-C) Tobacco use Pacemaker Sick sinus syndrome Snoring Witnessed apneic spells Urachal cyst Chronic low back pain Lumbar disc disease Insomnia Hyperlipidemia Hypertension Atrial fibrillation BPH (benign prostatic hyperplasia) Surgical History S/P tonsillectomy H/O arthroscopic knee surgery S/P bronchoscopy S/P lumbar spinal arthrodesis Family History Other Coronary heart disease Diabetes Hypertension Prostate cancer Social History Smoking Status: Current every day smoker Tobacco Type: Cigarettes Cigarettes Per Day: 10; Second Hand Exposure: No; Hx Alcohol Use: Yes Alcohol type: beer and wine Hx Substance Use: No Preferred Language: [place] Communication Ability: Effective Cap Blocker Required: No Beliefs That Will Affect Care: None marital status: Current Living Situation: Spouse and Family current occupational status: retired Feels Safe at Home: Yes Assistive Devices: Glasses Review of Systems Review of Systems: All systems reviewed & are unremarkable except as noted in HPI & below Physical Exam Physical Exam: General: no acute distress, WDWN Head: normocephalic, atraumatic Eyes: PERRL, EOM's intact, conjunctiva non-injected, anicteric ENT: normal inspection external ears, nose, mucous membranes moist Neck: supple, trachea midline, non-tender Lungs: clear, no respiratory distress, no wheezing/rhonchi/rales CV: RRR, no murmur, no pretibial edema Abd: normal BS, soft, non-tender Ext: no cyanosis, no calf tenderness Neuro: A&O x 3, normal affect. Visual arguelles intact. PERRL, EOMs intact. No nystagmus, facial sensation is intact and symmetric, face is strong and symmetric, hearing grossly intact, soft palate elevates symmetrically, no dysarthria, shoulder shrug intact, tongue is midline, normal movement, no fasciculations. Strength 5/5 throughout. normal gait Skin: warm, dry Results & Data Results & Data Vital Signs (Past 12 Hours) Vital Signs Temp Pulse Pulse Resp BP BP Pulse Ox 09/30/23 15:37 97 09/30/23 15:35 71 18 135/69 97 09/30/23 14:09 70 09/30/23 12:04 36 C L 80 18 102/63 95 O2 Del Method 09/30/23 15:37 Room Air 09/30/23 15:35 Room Air 09/30/23 14:09 09/30/23 12:04 Room Air Laboratory Results Short CBC 09/30/23 Range/Units 12:35 WBC 6.54 (4.8-10.8) K/ul Hgb 12.2 L (14.0-18.0) g/dl Hct 36.5 L (42.0-52.0) % Plt Count 178 (130-400) K/uL BMP 09/30/23 12:35 Sodium 139 Potassium 4.6 Chloride 105 Carbon Dioxide 30 BUN 21 Creatinine 1.12 Glucose 151 H Calcium 9.0 Liver Function 09/30/23 Range/Units 12:35 Total Bilirubin 0.6 (0.2-1.0) mg/dl AST 21 (13-39) U/L ALT 23 (7-52) U/L Alkaline Phosphatase 32 L (34-104) U/L Albumin 4.0 (3.4-5.0) gm/dl Diagnostic Findings Chest X-Ray 09/30/23 12:08 XR chest 1V not portable HISTORY: dizziness, near syncope COMPARISON: Chest 09/14/2023. FINDINGS: No pneumothorax. No pleural effusions. The lungs are clear. The heart is normal in size. There is a left-sided dual-chamber pacemaker. No acute fractures identified. Calcifications within the aortic knob again noted. IMPRESSION: No significant change compared to the prior study. No acute process. ACT 112: Negative or not required by law. Electronically signed by: Akil Rolle M.D. 09/30/2023 1:[address] 09/30/23 12:[address] DOSE: HISTORY: dizziness, near syncope TECHNIQUE: Multiaxial CT images of the head were performed without the use of intravenous contrast. Automated exposure control was utilized for this study. A dose lowering technique was utilized adhering to the principles of ALARA. Comparison: None. Findings: The paranasal sinuses and mastoid air cells are clear. The calvarium and skull base are intact. The ventricles and sulci are within normal limits. There is no mass, hematoma, midline shift, or acute infarct. Impression: No acute intracranial abnormality. ACT 112: Negative or not required by law. Electronically signed by: Akil Rolle M.D. 09/30/2023 1:22 PM Head CTA 09/30/23 12:09 HEAD & NECK CTA HISTORY: dizziness, near syncope TECHNIQUE: Multiaxial CT images of the head were performed following the intravenous administration of contrast to evaluate the major cerebral vessels. Multiaxial CT images of the neck were also performed following the intravenous administration of contrast to evaluate the major cervical vessels. 3D/MIP images were also obtained. Sagittal and coronal reformats were reviewed. A dose lowering technique was utilized adhering to the principles of ALARA. COMPARISON: Head CT 09/30/2023. FINDINGS: There is no mass, hematoma, midline shift, or acute infarct. Visualized intracranial internal carotid arteries, distal vertebral arteries, and basilar artery are widely patent. There is no significant stenosis, occlusion, or aneurysm seen within the bilateral ACAs, MCAs, or sales and service agent. Mild to moderate calcified plaque within the bilateral carotid siphons. The major dural venous sinuses are patent. The aortic arch and proximal great vessels are widely patent. There is no significant stenosis, occlusion, or dissection identified within the bilateral common carotid, internal carotid, or vertebral arteries. Mild emphysema. Left- sided pacemaker wires are noted. Mild to moderate calcified plaque within the bilateral carotid bifurcations. IMPRESSION: 1. No significant stenosis, occlusion, or aneurysm within the [place]. 2. No significant stenosis, occlusion, or dissection identified within the carotid or vertebral arteries. ACT 112: Negative or not required by law. Electronically signed by: Akil Rolle M.D. 09/30/2023 1:27 PM Neck CTA 09/30/23 12:09 HEAD & NECK CTA HISTORY: dizziness, near syncope TECHNIQUE: Multiaxial CT images of the head were performed following the intravenous administration of contrast to evaluate the major cerebral vessels. Multiaxial CT images of the neck were also performed following the intravenous administration of contrast to evaluate the major cervical vessels. 3D/MIP images were also obtained. Sagittal and coronal reformats were reviewed. A dose lowering technique was utilized adhering to the principles of ALARA. COMPARISON: Head CT 09/30/2023. FINDINGS: There is no mass, hematoma, midline shift, or acute infarct. Visualized intracranial internal carotid arteries, distal vertebral arteries, and basilar artery are widely patent. There is no significant stenosis, occlusion, or aneurysm seen within the bilateral ACAs, MCAs, or sales and service agent. Mild to moderate calcified plaque within the bilateral carotid siphons. The major dural venous sinuses are patent. The aortic arch and proximal great vessels are widely patent. There is no significant stenosis, occlusion, or dissection identified within the bilateral common carotid, internal carotid, or vertebral arteries. Mild emphysema. Left- sided pacemaker wires are noted. Mild to moderate calcified plaque within the bilateral carotid bifurcations. IMPRESSION: 1. No significant stenosis, occlusion, or aneurysm within the [place]. 2. No significant stenosis, occlusion, or dissection identified within the carotid or vertebral arteries. ACT 112: Negative or not required by law. Electronically signed by: Akil Rolle M.D. 09/30/2023 1:27 PM ECG Additional Comments: paced rhythm per my interpretation
[2023-09-30] MEDS ORDERED: ALBUTEROL HFA 8 GM INHALER INH PRN (17:13)
[2023-09-30] MEDS ORDERED: ACETAMINOPHEN 325 MG TAB PO PRN (17:13)
[2023-09-30] MEDS ORDERED: ONDANSETRON INJ 2 MG/ML 2 ML VIAL IV PRN (17:13)
[2023-09-30] MEDS ORDERED: TAPENTADOL HCL ER 50 MG TABCR PO PRN (17:13)
[2023-09-30] MEDS ORDERED: POLYETHYLENE (MIRALAX) 17 GM PACK PO PRN (17:13)
--- NOTE | 2023-09-30 17:15 | Emergency Department Note ---
Impression & Plan Elevated troponin, Pre-syncope ED Provider Note NAME: JOHN GORE AGE: 73 SEX: M : 1950 ARRIVES VIA: Walk-In INFORMANT: Patient, ED PROVIDER(S): Zaida Sr MD CHIEF COMPLAINT: Dizziness HPI: This 73-year-old male presenting for dizziness. Patient notes that around 10:45 AM he was in the kitchen and felt "dizzy ". He states he does not feel he was room spinning sensation but instead felt like he was off balance on his feet. He also felt he was about to pass out with blurred vision. states that he was somewhat ashen in color during this time. He did not actually syncopized. They checked his blood pressure nausea levels which were all normal. He has had no dysarthria, motor or sensory dysfunction, no facial droop. No chest pain, no shortness of breath, no fevers, chills, nausea, vomiting. Patient had a pacemaker placed multiple years ago for sick sinus rhythm and atrial fibrillation. ROS: See above HPI for pertinent positives & negatives. A total of 10 systems reviewed and were otherwise negative. PAST MEDICAL HISTORY: See Below PAST SURGICAL HISTORY: See Below FAMILY HISTORY: See Below SOCIAL HISTORY: See Below HOME MEDICATIONS: See Below ALLERGIES: See Below VITALS: See Below PHYSICAL EXAMINATION: General: resting comfortably in no acute distress Head: Normocephalic and atraumatic Eyes: Normal inspection, extraocular muscles intact Ear, nose, throat: Normal external exam Neck: Normal range of motion Respiratory: lungs clear to auscultation bilaterally Cardiovascular: Regular rate/rhythm, no murmur GI: soft, nontender, no guarding or rebound Extremities: nontender, moves all extremities Neuro: The patient awake and alert, appropriately conversive, no focal deficits, symmetric faces Skin: Warm, dry, and intact MEDICAL DECISION MAKING: This is a 73-year-old male presenting for dizziness. Patient's dizziness may actually be presyncope. Patient denies any chest pain at this time. -Based on patient's vital signs, history, low concern for PE clinically -ECG independently interpreted by me with dual AV paced, rate of 78, normal HI, left bundle branch block, slightly elevated QTc, no criteria for Sgarbossa criteria -Chest Xray independently interpreted by me showing no pneumothorax, focal opacity, or pleural effusions. -At triage patient had a CT of the head with CTA head and neck to rule out stroke. these all appear within normal limits without acute process. 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 The monitor shows a rate of 75 Laboratory studies: As stated above and show below. Imaging studies: See below. Past Med/Surg History Medical History (Updated 09/30/23 @ 19:43 by Zaida Sr MD) Tobacco use Pacemaker Sick sinus syndrome Snoring Witnessed apneic spells Urachal cyst Chronic low back pain Lumbar disc disease Insomnia Hyperlipidemia Hypertension Atrial fibrillation BPH (benign prostatic hyperplasia) Surgical History S/P tonsillectomy H/O arthroscopic knee surgery S/P bronchoscopy S/P lumbar spinal arthrodesis Family History Other Coronary heart disease Diabetes Hypertension Prostate cancer Social History Smoking Status: Current every day smoker Tobacco Type: Cigarettes Cigarettes Per Day: 10; Second Hand Exposure: No; Hx Alcohol Use: No Hx Substance Use: No Preferred Language: [place] Leone[place] Communication Ability: Effective Surgical Services Tech Required: No Beliefs That Will Affect Care: None marital status: Current Living Situation: Spouse current occupational status: retired Feels Safe at Home: Yes Safety Concerns: Feels Safe At This Time Assistive Devices: Glasses Allergies Allergies Allergy/AdvReac Type Severity Reaction Status Date / Time bee venom protein (honey bee) Allergy Unknown localized Verified 09/14/23 13:01 swelling Penicillins Allergy Unknown rash Verified 09/14/23 13:01 tetracycline AdvReac Unknown STAINS Verified 09/14/23 13:01 TEETH Poison Tiffany Extract/Poison Allergy Unknown rash Uncoded 09/14/23 13:01 [place] Extra Home Meds Home Medications Medication Instructions Recorded Confirmed atorvastatin 40 mg tablet 40 mg PO PM 06/03/19 09/30/23 celecoxib 100 mg capsule (Celebrex) 100 mg PO PM 06/03/19 09/30/23 dutasteride 0.5 mg capsule 0.5 mg PO DAILY 06/03/19 09/30/23 gabapentin 300 mg capsule 300 mg PO BID 06/03/19 09/30/23 (Neurontin) magnesium oxide 400 mg PO PM 06/03/19 09/30/23 potassium chloride 20 mEq 20 meq PO PM 06/03/19 09/30/23 tablet,extended release(part/cryst) (Klor-Con M) tapentadol 50 mg tablet,extended 50 mg PO BID PRN Pain 06/03/19 09/30/23 release,12 hr (Nucynta ER) famotidine 40 mg tablet 40 mg PO BID 06/30/21 09/30/23 ascorbic acid (vitamin C) 1,000 mg 1 g PO DAILY 07/05/22 09/30/23 tablet cholecalciferol (vitamin D3) 25 25 mcg PO PM 07/05/22 09/30/23 mcg (1,000 unit) capsule coenzyme Q10 100 mg capsule 100 mg PO DAILY 07/05/22 09/30/23 epinephrine 0.3 mg/0.3 mL 1 ml subcut DAILY PRN Anaphylaxis 07/05/22 09/30/23 injection, auto-injector vitamin B complex 1 cap PO PM 07/05/22 09/30/23 amiodarone 200 mg tablet 200 mg PO DAILY 01/17/23 09/30/23 calcium carbonate 500 mg calcium 1,000 mg PO HS 09/30/23 09/30/23 (1,250 mg) chewable tablet fluticasone fur. 100 mcg-umeclid 2 inh inhalation DAILY 09/30/23 09/30/23 62.5 mcg-vilant 25 mcg inhalat.powder (Trelegy Ellipta) Previous Rx's Medication Instructions Recorded metoprolol succinate 25 mg 25 mg PO BID #60 tabs 07/05/22 tablet,extended release 24 hr albuterol sulfate 90 mcg/actuation 2 puff inhalation QID PRN Wheezing 09/14/23 aerosol inhaler (Proventil HFA) #8.5 grams Results & Data (ED) Vital Signs Vital Signs - 24 hr 09/30/23 12:04 09/30/23 14:09 09/30/23 15:35 Temperature 36 C L Temperature Source Temporal Artery Scan Pulse Rate 80 70 Pulse Rate [Right Finger] 71 Respiratory Rate 18 18 Respiratory Effort / Characteristics Non-Labored Spontaneous Non-Labored Spontaneous Respiratory Depth Normal Normal Blood Pressure 102/63 Blood Pressure [Right Arm] 135/69 Blood Pressure Mean 76 Blood Pressure Mean [Right Arm] 91 Blood Pressure Position Sitting Pulse Oximetry 95 97 Oxygen Delivery Method Room Air Room Air Sepsis Recent Fever Within 48 Hours No Sepsis New/Unexplained Change in Mental Status No Sepsis Action Taken by Nursing No Action Required 09/30/23 15:37 Temperature Temperature Source Pulse Rate Pulse Rate [Right Finger] Respiratory Rate Respiratory Effort / Characteristics Respiratory Depth Blood Pressure Blood Pressure [Right Arm] Blood Pressure Mean Blood Pressure Mean [Right Arm] Blood Pressure Position Pulse Oximetry 97 Oxygen Delivery Method Room Air Sepsis Recent Fever Within 48 Hours Sepsis New/Unexplained Change in Mental Status Sepsis Action Taken by Nursing Laboratory Data 09/30/23 12:35 09/30/23 12:35 Lab Results 09/30/23 09/30/23 09/30/23 Range/Units 12:35 12:41 14:20 WBC 6.54 (4.8-10.8) K/ul RBC 3.55 L (4.70-6.10) M/uL Hgb 12.2 L (14.0-18.0) g/dl POC Hgb 12.6 L (14.0-18.0) g/dl Hct 36.5 L (42.0-52.0) % POC Hct 37 L (42-52) % MCV 102.8 H (80.0-100.0) fL MCH 34.4 H (25.0-34.0) pg MCHC 33.4 (32.0-36.0) g/dL RDW Std Deviation 63.5 H (36.4-46.3) fL RDW Coeff of Iva 16.8 H (11.5-14.5) % Plt Count 178 (130-400) K/uL MPV 9.3 L (9.4-12.4) fL Immature Gran % (Auto) 0.5 % Neut % (Auto) 84.8 % Lymph % (Auto) 9.3 % [place] % (Auto) 4.7 % Eos % (Auto) 0.2 % Baso % (Auto) 0.5 % Neut # (Auto) 5.55 (1.40-6.50) K/uL Lymph # (Auto) 0.61 L (1.20-3.40) K/uL [place] # (Auto) 0.31 (0.11-0.59) K/uL Eos # (Auto) 0.01 (0.00-0.50) K/uL Baso # (Auto) 0.03 (0.00-0.20) K/uL Immature Gran # (Auto) 0.03 (0.01-0.20) K/uL PT 10.6 (9.0-12.0) Seconds INR 1.0 (0.9-1.1) APTT 21 (21-31) Seconds PTT Ratio 0.7 POC Sodium 139 (135-144) mmol/L Sodium 139 (136-145) mmol/L POC Potassium 4.6 (3.3-5.0) mmol/L Potassium 4.6 (3.5-5.1) mmol/L POC Chloride 102 (101-112) mmol/L Chloride 105 (98-107) mmol/L Carbon Dioxide 30 (21-32) mmol/L POC Total CO2 27 (24-31) mmol/L Anion Gap 4 (3-11) POC Anion Gap 15.0 L (16-25) mmol/L POC BUN 20 H (7-18) mg/dl BUN 21 (6-23) mg/dl Creatinine 1.12 (0.6-1.4) mg/dl POC Creatinine 1.1 (0.6-1.3) mg/dl Est Cr Clr Drug Dosing 52.8 ml/min Est GFR ( Amer) 75.1 ml/min Est GFR (Non-Af Amer) 64.8 ml/min BUN/Creatinine Ratio 18.8 (10-20) Glucose 151 H (70-99(Fasting)) mg/dl POC Glucose (other) 152 H (70-99) mg/dl Calcium 9.0 (8.6-10.3) mg/dl POC Ioniz Calcium [place] 1.19 (1.12-1.32) mmol/l Total Bilirubin 0.6 (0.2-1.0) mg/dl AST 21 (13-39) U/L ALT 23 (7-52) U/L Alkaline Phosphatase 32 L (34-104) U/L Troponin I High Sens 118.6 H* 124.4 H* (0-20) pg/ml Total Protein 6.1 (6.0-8.3) gm/dl Albumin 4.0 (3.4-5.0) gm/dl Globulin 2.1 L (2.5-4.0) gm/dl Albumin/Globulin Ratio 1.9 (0.9-2) Administered Medications Celecoxib (Celecoxib 100 Mg Cap) 100 mg PO DAILY@1800 [facility] Stop: 10/30/23 17:59 Last Admin: 09/30/23 18:56 Dose: Not Given Documented By: ASW Enoxaparin Sodium (Enoxaparin Inj 40 Mg/0.4 Ml Syr) 40 mg SQ Q24H HARRY Stop: 10/30/23 17:59 Last Admin: 09/30/23 18:55 Dose: 40 mg Documented By: ASW Magnesium Oxide (Magnesium Oxide 400 Mg Tab) 400 mg PO DAILY@1800 [facility]ARRY Stop: 10/30/23 17:59 Last Admin: 09/30/23 18:57 Dose: 400 mg Documented By: ASW Potassium Chloride (Potassium Chloride Crtab 20 Meq Tabcr) 20 meq PO DAILY@1800 [facility]ARRY Stop: 10/30/23 17:59 Last Admin: 09/30/23 18:56 Dose: 20 meq Documented By: ASW Discontinued Medications Ioversol (Optiray 320 125ml) 110 ml IV ONCE ONE Stop: 09/30/23 12:47 Last Admin: 09/30/23 12:46 Dose: 110 ml Documented By: NEELAM Imaging Data Radiologist's Impression: Chest X-Ray 09/30/23 12:08 XR chest 1V not portable HISTORY: dizziness, near syncope COMPARISON: Chest 09/14/2023. FINDINGS: No pneumothorax. No pleural effusions. The lungs are clear. The heart is normal in size. There is a left-sided dual-chamber pacemaker. No acute fractures identified. Calcifications within the aortic knob again noted. IMPRESSION: No significant change compared to the prior study. No acute process. ACT 112: Negative or not required by law. Electronically signed by: Akil Rolle M.D. 09/30/2023 1:[address] 09/30/23 12:[address] DOSE: HISTORY: dizziness, near syncope TECHNIQUE: Multiaxial CT images of the head were performed without the use of intravenous contrast. Automated exposure control was utilized for this study. A dose lowering technique was utilized adhering to the principles of ALARA. Comparison: None. Findings: The paranasal sinuses and mastoid air cells are clear. The calvarium and skull base are intact. The ventricles and sulci are within normal limits. There is no mass, hematoma, midline shift, or acute infarct. Impression: No acute intracranial abnormality. ACT 112: Negative or not required by law. Electronically signed by: Akil Rolle M.D. 09/30/2023 1:22 PM Head CTA 09/30/23 12:09 HEAD & NECK CTA HISTORY: dizziness, near syncope TECHNIQUE: Multiaxial CT images of the head were performed following the intravenous administration of contrast to evaluate the major cerebral vessels. Multiaxial CT images of the neck were also performed following the intravenous administration of contrast to evaluate the major cervical vessels. 3D/MIP images were also obtained. Sagittal and coronal reformats were reviewed. A dose lowering technique was utilized adhering to the principles of ALARA. COMPARISON: Head CT 09/30/2023. FINDINGS: There is no mass, hematoma, midline shift, or acute infarct. Visualized intracranial internal carotid arteries, distal vertebral arteries, and basilar artery are widely patent. There is no significant stenosis, occlusion, or aneurysm seen within the bilateral ACAs, MCAs, or fat purification worker. Mild to moderate calcified plaque within the bilateral carotid siphons. The major dural venous sinuses are patent. The aortic arch and proximal great vessels are widely patent. There is no significant stenosis, occlusion, or dissection identified within the bilateral common carotid, internal carotid, or vertebral arteries. Mild emphysema. Left- sided pacemaker wires are noted. Mild to moderate calcified plaque within the bilateral carotid bifurcations. IMPRESSION: 1. No significant stenosis, occlusion, or aneurysm within the [place]. 2. No significant stenosis, occlusion, or dissection identified within the carotid or vertebral arteries. ACT 112: Negative or not required by law. Electronically signed by: Akil Rolle M.D. 09/30/2023 1:27 PM Neck CTA 09/30/23 12:09 HEAD & NECK CTA HISTORY: dizziness, near syncope TECHNIQUE: Multiaxial CT images of the head were performed following the intravenous administration of contrast to evaluate the major cerebral vessels. Multiaxial CT images of the neck were also performed following the intravenous administration of contrast to evaluate the major cervical vessels. 3D/MIP images were also obtained. Sagittal and coronal reformats were reviewed. A dose lowering technique was utilized adhering to the principles of ALARA. COMPARISON: Head CT 09/30/2023. FINDINGS: There is no mass, hematoma, midline shift, or acute infarct. Visualized intracranial internal carotid arteries, distal vertebral arteries, and basilar artery are widely patent. There is no significant stenosis, occlusion, or aneurysm seen within the bilateral ACAs, MCAs, or fat purification worker. Mild to moderate calcified plaque within the bilateral carotid siphons. The major dural venous sinuses are patent. The aortic arch and proximal great vessels are widely patent. There is no significant stenosis, occlusion, or dissection identified within the bilateral common carotid, internal carotid, or vertebral arteries. Mild emphysema. Left- sided pacemaker wires are noted. Mild to moderate calcified plaque within the bilateral carotid bifurcations. IMPRESSION: 1. No significant stenosis, occlusion, or aneurysm within the [place] of [place]. 2. No significant stenosis, occlusion, or dissection identified within the carotid or vertebral arteries. ACT 112: Negative or not required by law. Electronically signed by: Akil Rolle M.D. 09/30/2023 1:27 PM Discharge Plan Visit Data Chief Complaint: Vertigo Stated Complaint: DIZZY ED Provider: Zaida Sr Discharge Problem: Elevated troponin, Pre-syncope Discharge Instructions Interventions: ED Discharge Assessment Last Done: 09/30/23 17:13
[2023-09-30] MEDS ORDERED: POTASSIUM CHLORIDE CRTAB 20 MEQ TABCR PO SCH (18:00)
[2023-09-30] MEDS ORDERED: CELECOXIB 100 MG CAP PO SCH (18:00)
[2023-09-30] MEDS ORDERED: ENOXAPARIN INJ 40 MG/0.4 ML SYR SQ SCH (18:00)
[2023-09-30] MEDS ORDERED: MAGNESIUM OXIDE 400 MG TAB PO SCH (18:00)
[2023-09-30] MEDS ORDERED: ATORVASTATIN 40 MG TAB PO SCH (21:00)
[2023-09-30] MEDS ORDERED: CHOLECALCIFEROL 1,000 UNITS 25 MCG TAB PO SCH (21:00)
[2023-09-30] MEDS ORDERED: CALCIUM CARBONATE 1250MG TAB PO SCH (21:00)
[2023-09-30] MEDS: GABAPENTIN 300 MG CAP PO SCH (21:00)
[2023-09-30] MEDS: FAMOTIDINE 40 MG TABLET PO SCH (21:01)
[2023-09-30] MEDS: METOPROLOL SUCC 25MG EXT REL TAB PO SCH (21:01)
[2023-09-30] MEDS ORDERED: diphenhydrAMINE Capsule 25 MG CAP PO ONE (21:30)
--- NOTE | 2023-10-01 00:26 | Electrocardiogram Report ---
Test Reason : Blood Pressure : / mmHG Vent. Rate : 078 BPM Atrial Rate : 078 BPM P-R Int : 146 ms QRS Dur : 144 ms QT Int : 442 ms P-R-T Axes : 000 113 -71 degrees QTc Int : 503 ms AV dual-paced rhythm Abnormal ECG When compared with ECG of 05-JUL-2022 16:27, Vent. rate has increased BY 6 BPM Confirmed by Garrett Hatfield ([id number]) on 10/01/2023 12:26:07 AM Referred By: Confirmed By:Garrett Hatfield
[2023-10-01 02:17] LABS: Basophils # (auto) 0.03 K/uL (0.00-0.20); Basophils % (auto) 0.6 %; Eosinophils # (auto) 0.11 K/uL (0.00-0.50); Eosinophils % (auto) 2.1 %; Hematocrit (blood only) 34.9 % (42.0-52.0); Immature Granulocytes # (auto) 0.02 K/uL (0.01-0.20); Immature Granulocytes % (auto) 0.4 %; Lymphocytes % (auto) 32.4 %; Mean Corpuscular Hemoglobin 34.6 pg (25.0-34.0); Mean Corpuscular Hgb Conc 34.4 g/dL (32.0-36.0); Mean Corpuscular Volume 100.6 fL (80.0-100.0); Mean Platelet Volume 10.4 fL (9.4-12.4); Monocytes # (auto) 0.48 K/uL (0.11-0.59); Monocytes % (auto) 9.2 %; Neutrophils % (auto) 55.3 %; Platelet Count 164 K/uL (130-400); RDW Coefficient of Variation 16.7 % (11.5-14.5); RDW Standard Deviation 60.2 fL (36.4-46.3); Red Blood Count 3.47 M/uL (4.70-6.10); White Blood Count 5.24 K/ul (4.8-10.8)
[2023-10-01 02:35] LABS: BUN Creatinine Ratio 20.2 (10-20); Calcium 9.1 mg/dl (8.6-10.3); Chol HDL Ratio 1.9 (0-5); Creatinine Clr Calc Pharmacy 51.9 ml/min; Est GFR (African American) 73.5 ml/min; Est GFR (Non-African American) 63.4 ml/min
[2023-10-01 02:50] LABS: Thyroid Stimulating Hormone 1.211 uIu/ml (0.300-4.500)
[2023-10-01 07:34] LABS: Estimated Average Glucose 123 mg/dl; Hemoglobin A1C 5.9 % (4.5-5.6)
[2023-10-01] MEDS ORDERED: FINASTERIDE 5 MG TAB PO SCH (09:00)
[2023-10-01] MEDS ORDERED: AMIODARONE 200 MG TAB PO SCH (09:00)
[2023-10-01] MEDS ORDERED: NON-FORMULARY MEDICATION (Fluticasone-Umeclidin-Vilanter [Trelegy Ellipta] 100-62.5-25 mcg INH SCH (09:00)
[2023-10-01] MEDS ORDERED: FLUTICASONE FUROATE 100MCG 14 PUFFS/INHALER INH SCH (09:00)
[2023-10-01] MEDS ORDERED: UMECLIDINIUM/VILANTEROL 62.5/25MCG 7 PUFFS/INHALER INH SCH (09:00)
[2023-10-01] MEDS: METOPROLOL SUCC 25MG EXT REL TAB PO SCH (09:41)
[2023-10-01] MEDS: GABAPENTIN 300 MG CAP PO SCH (09:42)
[2023-10-01] MEDS: FAMOTIDINE 40 MG TABLET PO SCH (09:43)
--- NOTE | 2023-10-01 11:52 | Cardiology Consultation ---
Date of Consultation October 01, 2023 Assessment & Plan (1) Pre-syncope: (2) Elevated troponin: (3) Hypertrophic cardiomyopathy: (4) Paroxysmal atrial fibrillation: (5) PVC (premature ventricular contraction): Plan Patient admitted after one near syncopal spell with visual disturbances yesterday. Device interrogated and was without arrhythmias (VT/afib). No significant PVC burden as well. Head/neck CT were unremarkable. He was mildly hypotensive on arrival. Given his underlying HOCM, its possible dehydration was a factor in his symptoms. Hydration encouraged. BP now improved. NO arrhythmias on telemetry since admission as well. Continue Amiodarone, metoprolol, ASA Echocardiogram results are pending. Consider future cardiac MRI? [facility] clinic Case discussed with Dr. Purcell I spent a total of 60 minutes on the date of service in preparation, delivery, and documentation of the care provided to this patient, excluding any time spent in the performance of separately billed services. Lupe Caba PA-C Department of Cardiology, [facility] This chart was completed in part utilizing Speech Voice Recognition Software. Grammatical errors, random word insertions, pronoun errors, and incomplete sentences are an occasional consequence of this system due to software limitations, ambient noise, and hardware issues. Any formal questions or concerns about the content, text, or information contained within the body of this dictation should be directly addressed to the provider for clarification. Supervising Physician Co-Signing Physician Notes Supervising Physician Attestation: I have personally performed a history and physical examination on the patient. I agree with the physician specimen preparation assistant's findings and plan as documented with the following additions. Subjective: Patient seen, spouse, daughter, at the bedside. He states he feels well. Denies any chest discomfort or shortness of breath. States his lightheadedness has resolved. Telemetry reveals sinus rhythm with AV sequential paced rhythm in the 70s. Exam: Cardiovascular: Regular rhythm, no murmurs, no edema, left infraclavicular pacemaker pocket clean dry and intact Data: Telemetry without any arrhythmias EKG performed 09/30/2023 and interpreted independently: Sinus rhythm with AV sequential pacing at 78 bpm Pacemaker interrogation revealed normal device function. Echocardiogram performed today revealed asymmetric septal hypertrophy consistent with the patient's history of hypertrophic cardiomyopathy with hyperdynamic left ventricular systolic function. Assessment and Plan: Near syncope Question if related to mild degree of volume depletion. * Symptoms resolved. * Workup reassuring * I spent a total of 20 minutes on the date of service in preparation, delivery, and documentation of the care provided to this patient, excluding any time spent in the performance of separately billed services. Juanjose Purcell, DO History of Present Illness Reason for Consultation: Near Syncope; HCM Requesting Physician: Dr. Tamayo Attending Physician: Binta Tamayo MD History of Present Illness Patient is a 73 year old male, known to [facility] (Dr. King) for complex history including: TBS/SSS s/juan ppm 06/2022 pAF diagnosed 8 years ago on metoprolol and started on amiodarone 08/2022 not on AC [id number] (age, HTN) Patient repeatedly declining anticoagulation. 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 He reports this was not blurred vision, but he felt as if his vision was distorted. He denied symptoms of palpitations, tachypalpitations, chest pain or SOB. He went to sit down and call his and symptoms slowly resolved w ithin 10 minutes. He subsequently came to the ER for evaluation. Patient has recently finished 2 rounds of Antibiotics and 2 rounds of prednisone for a lingering cough. He had respiratory issues since May 2023 when he was diagnosed with COVID. He reports he did not have a coughing fit yesterday during this spell, but does admit to being lightheaded at times during coughing fits. No syncope or near syncope. He thought he had his normal amount of water intake yesterday morning. He also had eaten breakfast earlier in the day. He denies recent lightheadedness/dizziness with physical activity. He continues to walk outdoors for exercise without exertional complaints. Upon evaluation in ER, Head and neck CT was negative. initial BP was low. Troponin borderline elevated but flat. EKG demonstrated AV paced without acute changes. No arrhythmias on his device interrogation. At time of consult, patient agitated and wanting to go home. He denies recurrent events overnight or this morning. Allergies Allergy/AdvReac Type Severity Reaction Status Date / Time bee venom protein (honey bee) Allergy Unknown localized Verified 09/14/23 13:01 swelling Penicillins Allergy Unknown rash Verified 09/14/23 13:01 tetracycline AdvReac Unknown STAINS Verified 09/14/23 13:01 TEETH Poison Tiffany Extract/Poison Allergy Unknown rash Uncoded 09/14/23 13:01 [employer] Extra Home Medications Medication Instructions Recorded Confirmed Type atorvastatin 40 mg tablet 40 mg PO PM 06/03/19 09/30/23 History celecoxib 100 mg capsule (Celebrex) 100 mg PO PM 06/03/19 09/30/23 History dutasteride 0.5 mg capsule 0.5 mg PO DAILY 06/03/19 09/30/23 History gabapentin 300 mg capsule 300 mg PO BID 06/03/19 09/30/23 History (Neurontin) magnesium oxide 400 mg PO PM 06/03/19 09/30/23 History potassium chloride 20 mEq 20 meq PO PM 06/03/19 09/30/23 History tablet,extended release(part/cryst) (Klor-Con M) tapentadol 50 mg tablet,extended 50 mg PO BID PRN Pain 06/03/19 09/30/23 History release,12 hr (Nucynta ER) famotidine 40 mg tablet 40 mg PO BID 06/30/21 09/30/23 History ascorbic acid (vitamin C) 1,000 mg 1 g PO DAILY 07/05/22 09/30/23 History tablet cholecalciferol (vitamin D3) 25 25 mcg PO PM 07/05/22 09/30/23 History mcg (1,000 unit) capsule coenzyme Q10 100 mg capsule 100 mg PO DAILY 07/05/22 09/30/23 History epinephrine 0.3 mg/0.3 mL 1 ml subcut DAILY PRN Anaphylaxis 07/05/22 09/30/23 History injection, auto-injector metoprolol succinate 25 mg 25 mg PO BID #60 tabs 07/05/22 09/30/23 Rx tablet,extended release 24 hr vitamin B complex 1 cap PO PM 07/05/22 09/30/23 History amiodarone 200 mg tablet 200 mg PO DAILY 01/17/23 09/30/23 History albuterol sulfate 90 mcg/actuation 2 puff inhalation QID PRN Wheezing 09/14/23 09/30/23 Rx aerosol inhaler (Proventil HFA) #8.5 grams calcium carbonate 500 mg calcium 1,000 mg PO HS 09/30/23 09/30/23 History (1,250 mg) chewable tablet fluticasone fur. 100 mcg-umeclid 2 inh inhalation DAILY 09/30/23 09/30/23 History 62.5 mcg-vilant 25 mcg inhalat.powder (Trelegy Ellipta) Patient History Medical History (Updated 10/01/23 @ 12:14 by Lupe Caba PA-C) Tobacco use Pacemaker Sick sinus syndrome Snoring Witnessed apneic spells Urachal cyst Chronic low back pain Lumbar disc disease Insomnia Hyperlipidemia Hypertension Atrial fibrillation BPH (benign prostatic hyperplasia) Surgical History S/P tonsillectomy H/O arthroscopic knee surgery S/P bronchoscopy S/P lumbar spinal arthrodesis Family History Other Coronary heart disease Diabetes Hypertension Prostate cancer Social History Smoking Status: Current every day smoker Tobacco Type: Cigarettes Cigarettes Per Day: 10; Second Hand Exposure: No; Hx Alcohol Use: No Hx Substance Use: No Preferred Language: Albanian Communication Ability: Effective Network Planner Required: No Beliefs That Will Affect Care: None marital status: Current Living Situation: Spouse current occupational status: retired Feels Safe at Home: Yes Safety Concerns: Feels Safe At This Time Assistive Devices: Glasses Review of Systems Review of Systems: All systems reviewed & are unremarkable except as noted in HPI & below Physical Exam Constitutional: WD/WN, vitals as above well nourished; no acute distress Neck: trachea midline, no thyromegaly Respiratory: no respiratory distress Auscultation: + wheezes (faint scattered wheeze) Cardiovascular: Rate/Rhythm: regular rate and regular rhythm Heart Sounds: + murmur (II/ systolic murmur) Gastrointestinal (Abdomen): normal bowel sounds, soft, nontender, no hepatosplenomegaly Neurologic: PERRL, EOMI, accommodation nl, no face palsy, no dysarthria Results & Data Vital Signs (Past 12 Hours) Vital Signs Temp Pulse Pulse Resp BP BP Pulse Ox 10/01/23 11:23 37.1 C 76 18 113/68 93 10/01/23 11:07 75 10/01/23 08:34 36.6 C 86 22 158/83 H 94 10/01/23 06:21 71 16 135/74 92 O2 Del Method 10/01/23 11:23 Room Air 10/01/23 11:07 10/01/23 08:34 Room Air 10/01/23 06:21 Room Air Laboratory Results Cardiac Enzymes 09/30/23 09/30/23 09/30/23 Range/Units 12:35 14:20 19:36 AST 21 (13-39) U/L Troponin I High Sens 118.6 H* 124.4 H* 126.9 H* (0-20) pg/ml 10/01/23 Range/Units 02:05 AST (13-39) U/L Troponin I High Sens 125.0 H* (0-20) pg/ml Coagulation 09/30/23 Range/Units 12:35 PT 10.6 (9.0-12.0) Seconds APTT 21 (21-31) Seconds Lipids 10/01/23 Range/Units 02:05 Triglycerides 110 (0-150) mg/dl Cholesterol 166 (0-200) mg/dl HDL Cholesterol 87 mg/dl Cholesterol/HDL Ratio 1.9 (0-5) CBC 09/30/23 10/01/23 Range/Units 12:35 02:05 WBC 6.54 5.24 (4.8-10.8) K/ul RBC 3.55 L 3.47 L (4.70-6.10) M/uL Hgb 12.2 L 12.0 L (14.0-18.0) g/dl Hct 36.5 L 34.9 L (42.0-52.0) % Plt Count 178 164 (130-400) K/uL Neut # (Auto) 5.55 2.90 (1.40-6.50) K/uL Lymph # (Auto) 0.61 L 1.70 (1.20-3.40) K/uL Polk # (Auto) 0.31 0.48 (0.11-0.59) K/uL Eos # (Auto) 0.01 0.11 (0.00-0.50) K/uL Baso # (Auto) 0.03 0.03 (0.00-0.20) K/uL Comprehensive Metabolic Panel 09/30/23 10/01/23 Range/Units 12:35 02:05 Sodium 139 140 (136-145) mmol/L Potassium 4.6 4.0 (3.5-5.1) mmol/L Chloride 105 106 (98-107) mmol/L Carbon Dioxide 30 30 (21-32) mmol/L BUN 21 23 (6-23) mg/dl Creatinine 1.12 1.14 (0.6-1.4) mg/dl Glucose 151 H 87 (70-99(Fasting)) mg/dl Calcium 9.0 9.1 (8.6-10.3) mg/dl AST 21 (13-39) U/L ALT 23 (7-52) U/L Alkaline Phosphatase 32 L (34-104) U/L Total Protein 6.1 (6.0-8.3) gm/dl Albumin 4.0 (3.4-5.0) gm/dl Intake and Output 09/30/23 10/01/23 10/01/23 22:59 06:59 14:59 Other: Weight 63.6 kg Weight Measurement Method Chair Scale Diagnostic Findings Telemetry reviewed: Chronic AV pacing Echocardiogram from this morning 10/01/23 - pending Device interrogation reviewed from 09/30/23: Appropriate function, battery longevity. 0 Episodes of atrial fibrillation since last interrogation 09/13/23. 0 Episodes of VT since last interrogation No arrhythmias that would have correlated with his symptoms yesterday on 09/30 Nuclear lexiscan stress test report reviewed dated May 2023: Interpretation Summary Lexiscan nuclear cardiac stress test negative for ischemia. Small area of moderate intensity fixed perfusion defect of the apex The LV ejection fraction is calculated at 53%. Outpatient echo reviewed from November 2022: Interpretation Summary The examination is adequate to evaluate the referral indication. There is asymmetric left ventricular hypertrophy. The asymmetric hypertrophy involves the septum. The maximal septal thickness at end diastole is 2.6 cm. Calculated LV ejection Fraction = 64% (bi-plane method of discs). The left atrium is severely enlarged. The left ventricular diastolic function is moderately abnormal (grade II). Mild mitral regurgitation is present. Mild tricuspid regurgitation is present. Mild pulmonary hypertension is present. The estimated pulmonary artery systolic pressure is 42mm Hg. The aortic root is mildly dilated, 3.8 cm. The proximal ascending aorta is not visualized adequately enough to allow measurement. The Doppler assessment of the left ventricular intracavitary and left ventricular outflow tract gradients is technically limited. The peak baseline and Valsalva gradient was measured to be 5 mm Hg, however based on the results of previous studies, this is felt to likely be technically related underestimation. Medications Administered Current Inpatient Medications Acetaminophen (Acetaminophen 325 Mg Tab) 650 mg PO Q4H PRN PRN Reason: Pain or Fever Stop: 10/30/23 17:12 Last Admin: 09/30/23 21:18 Dose: 325 mg Albuterol (Albuterol Hfa 8 Gm Inhaler) 2 puffs INH QID PRN PRN Reason: Wheezing Stop: 10/30/23 17:12 Amiodarone HCl (Amiodarone 200 Mg Tab) 200 mg PO DAILY HARRY Stop: 10/31/23 08:59 Last Admin: 10/01/23 09:40 Dose: 200 mg Atorvastatin Calcium (Atorvastatin 40 Mg Tab) 40 mg PO PM HARRY Stop: 10/30/23 20:59 Last Admin: 09/30/23 21:01 Dose: 40 mg Calcium Carbonate (Calcium Carbonate 1250mg Tab) 1,250 mg PO HS HARRY Stop: 10/30/23 20:59 Last Admin: 09/30/23 21:01 Dose: 1,250 mg Celecoxib (Celecoxib 100 Mg Cap) 100 mg PO DAILY@1800 HARRY Stop: 10/30/23 17:59 Last Admin: 09/30/23 18:56 Dose: Not Given Enoxaparin Sodium (Enoxaparin Inj 40 Mg/0.4 Ml Syr) 40 mg SQ Q24H HARRY Stop: 10/30/23 17:59 Last Admin: 09/30/23 18:55 Dose: 40 mg Famotidine (Famotidine 40 Mg Tablet) 40 mg PO BID HARRY Stop: 10/30/23 20:59 Last Admin: 10/01/23 09:43 Dose: 40 mg Finasteride (Finasteride 5 Mg Tab) 5 mg PO DAILY HARRY Stop: 10/31/23 08:59 Last Admin: 10/01/23 09:41 Dose: 5 mg Fluticasone Furoate (Fluticasone Furoate 100mcg 14 Puffs/Inhaler) 1 puffs INH DAILY [facility] Stop: 10/31/23 08:59 Last Admin: 10/01/23 09:42 Dose: 1 puffs Gabapentin (Gabapentin 300 Mg Cap) 300 mg PO BID HARRY Stop: 10/30/23 20:59 Last Admin: 10/01/23 09:42 Dose: 300 mg Magnesium Oxide (Magnesium Oxide 400 Mg Tab) 400 mg PO DAILY@1800 [facility] Stop: 10/30/23 17:59 Last Admin: 09/30/23 18:57 Dose: 400 mg Metoprolol Succinate (Metoprolol Succ 25mg Ext Rel Tab) 25 mg PO BID [facility] Stop: 10/30/23 20:59 Last Admin: 10/01/23 09:41 Dose: 25 mg Ondansetron HCl (Ondansetron Inj 2 Mg/Ml 2 Ml Vial) 4 mg IV Q6H PRN PRN Reason: Nausea Stop: 10/30/23 17:12 Polyethylene Glycol (Polyethylene (Miralax) 17 Gm Pack) 17 gm PO DAILY PRN PRN Reason: Constipation Stop: 10/30/23 17:12 Potassium Chloride (Potassium Chloride Crtab 20 Meq Tabcr) 20 meq PO DAILY@1800 [facility] Stop: 10/30/23 17:59 Last Admin: 09/30/23 18:56 Dose: 20 meq Tapentadol (Tapentadol Hcl Er 50 Mg Tabcr) 50 mg PO BID PRN PRN Reason: Pain Stop: 10/14/23 17:12 Last Admin: 10/01/23 09:47 Dose: 50 mg Umeclidinium/Vilanterol (Umeclidinium/Vilanterol 62.5/25mcg 7 Puffs/Inhaler) 1 puffs INH DAILY [facility] Stop: 10/31/23 08:59 Last Admin: 10/01/23 09:42 Dose: 1 puffs Vitamin D (Cholecalciferol 1,000 Units 25 Mcg Tab) 1,000 units PO PM HARRY Stop: 10/30/23 20:59 Last Admin: 09/30/23 21:01 Dose: 1,000 units
[2023-10-01 12:34] LABS: Appearance Urine Clear (Clear); Bilirubin Urine Negative (Negative); Blood Urine Negative (Negative); Color Urine Yellow; Glucose Urine UA Negative (Negative); Ketones Urine Negative (Negative); Leukocyte Esterase Urine Negative (Negative); Nitrite Urine Negative (Negative); Protein Urine Negative (Negative); Specific Gravity Urine 1.011 (1.000-1.030); Urobilinogen Urine Negative (Negative)
--- NOTE | 2023-10-01 16:18 | Discharge Summary ---
Discharge Summary Date of Service October 01, 2023 Admission HPI Per Admitting Provider Patient is 73-year-old male with PMH SSS s/p pacemaker, paroxysmal atrial fibrillation, hypertrophic cardiomyopathy, HTN, dyslipidemia, COPD, BPH, tobacco use presented to ER with complaint of "dizziness" episode today. History obtained from patient, patient's spouse as well as outpatient chart review. Patient states this morning around 11:00 had episode where he felt "intense dizziness". Patient states might of felt like he was going to pass out but definitely did not feel like a spinning sensation. He states this dizziness lasted approximately a minute. He reports while this occurred he felt like his vision "intensified". Denies loss of vision or diplopia or blurry vision. Denies any associated chest pain, shortness of breath, palpitations. Denies sy ncope. Reports for several hours after he felt "not his self and felt off". Denies any CP, SOB, palpitations since. States he feels like he is back to his normal self. Reports history of COVID-19 in May 2023 and since has had continued cough. Patient states has followed up with Dr. Dykes. He states he has been on several rounds of antibiotics as well as prednisone tapers. Reports recently finished prednisone taper. He feels cough may have decreased very slightly but still continues. Reports mostly coughs at night. Per outpatient note patient was last seen by EP cardiology on 07/10/2023, at that time had device check with some episodes of atrial fibrillation reported longest reported 3 and half hours. Patient opted to not start anticoagulation with Eliquis at that visit. Stress echo: 10/21/2019: Negative for inducible ischemia. Denies fever/chills, diaphoresis, N/V/D/C, SPARKS, vision loss, diplopia, blurry vision, neck pain, hemoptysis, sore throat, choking, otalgia, rhinorrhea, abdominal pain, paresthesias, weakness, extremity weakness, extremity edema, rashes, urinary symptoms. Admission Exam Per Admitting Provider General: no acute distress, WDWN Head: normocephalic, atraumatic Eyes: PERRL, EOM's intact, conjunctiva non-injected, anicteric ENT: normal inspection external ears, nose, mucous membranes moist Neck: supple, trachea midline, non-tender Lungs: clear, no respiratory distress, no wheezing/rhonchi/rales CV: RRR, no murmur, no pretibial edema Abd: normal BS, soft, non-tender Ext: no cyanosis, no calf tenderness Neuro: A&O x 3, normal affect. Visual arguelles intact. PERRL, EOMs intact. No nystagmus, facial sensation is intact and symmetric, face is strong and symmetric, hearing grossly intact, soft palate elevates symmetrically, no dysarthria, shoulder shrug intact, tongue is midline, normal movement, no fasciculations. Strength 5/5 throughout. normal gait Skin: warm, dry Principal Dx & Hospital Course #1 = Principal Diagnosis (1) Dizziness: (2) Elevated troponin: ? Presyncope Patient is 73-year-old male with PMH SSS s/p pacemaker, paroxysmal atrial fibrillation, hypertrophic cardiomyopathy, HTN, dyslipidemia, COPD, BPH, tobacco use presented to ER with complaint of "dizziness" episode today, lasted approximately a minute followed by "feeling off" for couple of hours. He reports while this occurred he felt like his vision "intensified" and loss of vision or diplopia or blurry vision In ER vital stable, no leukocytosis, H/H: 12.2/36, random glucose: 151, no other significant electrolyte abnormality Troponin: 118--> [address] head: No acute intracranial abnormality CTA head and neck: No significant stenosis, occlusion, or aneurysm within the [place]. No significant stenosis, occlusion, or dissection identified within the carotid or vertebral arteries. CXR: No significant change compared to the prior study. No acute process. Patient without chest pain, shortness of breath, palpitations. Currently asymptomatic and no recurrent dizziness DDX: TIA, arrhythmia. Less likely suspect ACS Monitor on telemetry Obtain orthostatic vital signs Pacemaker interrogation Trend troponin Echo CBC, BMP, lipid panel, A1c, TSH in a.m. EKG in a.m. Continue atorvastatin, metoprolol succinate Cardiology consult If would develop recurrent dizziness episodes may consider neurology consult (3) Sick sinus syndrome: (4) Pacemaker: S/p pacemaker Pacemaker interrogation (5) Paroxysmal atrial fibrillation: Not on anticoagulation. Per review of outpatient cardiology note discussion on starting Eliquis, patient decided to withhold Eliquis at this time. There was discussion of patient had recurrent atrial fibrillation or atrial fibrillation lasting greater than 6 hours Eliquis was to be started Continue amiodarone, metoprolol succinate (6) Hypertension: Stable Continue metoprolol succinate (7) Hyperlipidemia: Continue atorvastatin (8) COPD with emphysema: No signs acute exacerbation Continue home inhalers (9) BPH (benign prostatic hyperplasia): Continue dutasteride (10) Tobacco use: 0.5 ppd Denies nicotine patch Smoking cessation encouraged DVT Prophylaxis Lovenox SQ Full code as per discussion with pt Follows with Dr Sarabjit Werner for routine care Pt was seen and care coordinated with Dr Tamayo. See addendum Discharge Exam General: Alert, oriented, seated and eating. No acute distress Psych: Appropriate mood and affect Neuro: No gross deficits while sitting in bed HEENT: NC/AT CV: RRR Resp: Breath sounds clear bilaterally, no increased effort of breathing. Abdomen: Soft, nontender Extremities: No edema in lower extremities bilaterally. Updated Medication List Medication Instructions Recorded Confirmed Type atorvastatin 40 mg tablet 40 mg PO PM 06/03/19 09/30/23 History celecoxib 100 mg capsule (Celebrex) 100 mg PO PM 06/03/19 09/30/23 History dutasteride 0.5 mg capsule 0.5 mg PO DAILY 06/03/19 09/30/23 History gabapentin 300 mg capsule 300 mg PO BID 06/03/19 09/30/23 History (Neurontin) magnesium oxide 400 mg PO PM 06/03/19 09/30/23 History potassium chloride 20 mEq 20 meq PO PM 06/03/19 09/30/23 History tablet,extended release(part/cryst) (Klor-Con M) tapentadol 50 mg tablet,extended 50 mg PO BID PRN Pain 06/03/19 09/30/23 History release,12 hr (Nucynta ER) famotidine 40 mg tablet 40 mg PO BID 06/30/21 09/30/23 History ascorbic acid (vitamin C) 1,000 mg 1 g PO DAILY 07/05/22 09/30/23 History tablet cholecalciferol (vitamin D3) 25 25 mcg PO PM 07/05/22 09/30/23 History mcg (1,000 unit) capsule coenzyme Q10 100 mg capsule 100 mg PO DAILY 07/05/22 09/30/23 History epinephrine 0.3 mg/0.3 mL 1 ml subcut DAILY PRN Anaphylaxis 07/05/22 09/30/23 History injection, auto-injector metoprolol succinate 25 mg 25 mg PO BID #60 tabs 07/05/22 09/30/23 Rx tablet,extended release 24 hr vitamin B complex 1 cap PO PM 07/05/22 09/30/23 History amiodarone 200 mg tablet 200 mg PO DAILY 01/17/23 09/30/23 History albuterol sulfate 90 mcg/actuation 2 puff inhalation QID PRN Wheezing 09/14/23 09/30/23 Rx aerosol inhaler (Proventil HFA) #8.5 grams calcium carbonate 500 mg calcium 1,000 mg PO HS 09/30/23 09/30/23 History (1,250 mg) chewable tablet fluticasone fur. 100 mcg-umeclid 2 inh inhalation DAILY 09/30/23 09/30/23 History 62.5 mcg-vilant 25 mcg inhalat.powder (Trelegy Ellipta) Hospital Stay Data Consultations 09/30/23 15:17 ED Decision to Admit Stat 09/30/23 17:13 Consult Cardiology Routine Diagnostic Imagining Performed 09/30/23 12:09 CT angio head w con Stat CT angio neck with con Stat CT head/brain wo con Stat Chest X-Ray 09/30/23 12:08 XR chest 1V not portable HISTORY: dizziness, near syncope COMPARISON: Chest 09/14/2023. FINDINGS: No pneumothorax. No pleural effusions. The lungs are clear. The heart is normal in size. There is a left-sided dual-chamber pacemaker. No acute fractures identified. Calcifications within the aortic knob again noted. IMPRESSION: No significant change compared to the prior study. No acute process. ACT 112: Negative or not required by law. Electronically signed by: Akil Rolle M.D. 09/30/2023 1:[address] 09/30/23 12:[address] DOSE: HISTORY: dizziness, near syncope TECHNIQUE: Multiaxial CT images of the head were performed without the use of intravenous contrast. Automated exposure control was utilized for this study. A dose lowering technique was utilized adhering to the principles of ALARA. Comparison: None. Findings: The paranasal sinuses and mastoid air cells are clear. The calvarium and skull base are intact. The ventricles and sulci are within normal limits. There is no mass, hematoma, midline shift, or acute infarct. Impression: No acute intracranial abnormality. ACT 112: Negative or not required by law. Electronically signed by: Akil Rolle M.D. 09/30/2023 1:22 PM Head CTA 09/30/23 12:09 HEAD & NECK CTA HISTORY: dizziness, near syncope TECHNIQUE: Multiaxial CT images of the head were performed following the intravenous administration of contrast to evaluate the major cerebral vessels. Multiaxial CT images of the neck were also performed following the intravenous administration of contrast to evaluate the major cervical vessels. 3D/MIP images were also obtained. Sagittal and coronal reformats were reviewed. A dose lowering technique was utilized adhering to the principles of ALARA. COMPARISON: Head CT 09/30/2023. FINDINGS: There is no mass, hematoma, midline shift, or acute infarct. Visualized intracranial internal carotid arteries, distal vertebral arteries, and basilar artery are widely patent. There is no significant stenosis, occlusion, or aneurysm seen within the bilateral ACAs, MCAs, or laboratory apparatus glass blower. Mild to moderate calcified plaque within the bilateral carotid siphons. The major dural venous sinuses are patent. The aortic arch and proximal great vessels are widely patent. There is no significant stenosis, occlusion, or dissection identified within the bilateral common carotid, internal carotid, or vertebral arteries. Mild emphysema. Left- sided pacemaker wires are noted. Mild to moderate calcified plaque within the bilateral carotid bifurcations. IMPRESSION: 1. No significant stenosis, occlusion, or aneurysm within the [place]. 2. No significant stenosis, occlusion, or dissection identified within the carotid or vertebral arteries. ACT 112: Negative or not required by law. Electronically signed by: Akil Rolle M.D. 09/30/2023 1:27 PM Neck CTA 09/30/23 12:09 HEAD & NECK CTA HISTORY: dizziness, near syncope TECHNIQUE: Multiaxial CT images of the head were performed following the intravenous administration of contrast to evaluate the major cerebral vessels. Multiaxial CT images of the neck were also performed following the intravenous administration of contrast to evaluate the major cervical vessels. 3D/MIP images were also obtained. Sagittal and coronal reformats were reviewed. A dose lowering technique was utilized adhering to the principles of ALARA. COMPARISON: Head CT 09/30/2023. FINDINGS: There is no mass, hematoma, midline shift, or acute infarct. Visualized intracranial internal carotid arteries, distal vertebral arteries, and basilar artery are widely patent. There is no significant stenosis, occlusion, or aneurysm seen within the bilateral ACAs, MCAs, or laboratory apparatus glass blower. Mild to moderate calcified plaque within the bilateral carotid siphons. The major dural venous sinuses are patent. The aortic arch and proximal great vessels are widely patent. There is no significant stenosis, occlusion, or dissection identified within the bilateral common carotid, internal carotid, or vertebral arteries. Mild emphysema. Left- sided pacemaker wires are noted. Mild to moderate calcified plaque within the bilateral carotid bifurcations. IMPRESSION: 1. No significant stenosis, occlusion, or aneurysm within the [place]. 2. No significant stenosis, occlusion, or dissection identified within the carotid or vertebral arteries. ACT 112: Negative or not required by law. Electronically signed by: Akil Rolle M.D. 09/30/2023 1:27 PM Pending Results Patient Have Any Pending Studies at Discharge: No Discharge Instructions Given to Patient (Per Discharging Provider) Mr Villanueva, You were admitted with concerning dizziness. You were seen by cardiology and had your pacemaker interrogated and testing done that did not show a cause. It appears that your pacemaker is working as it should. We do advise that you try your best to remain hydrated as that might have been a possible cause of your symptoms. However, should your symptoms return or worsen, please do not hesitate to return to the emergency room. Regardless, please keep close follow up with your primary care provider and business ethics professor after discharge. It was a pleasure taking care of you while you were here. Total Time Total Time Spent Total Time Spent (In Minutes): > 30 minutes
== END 2023-10-01 16:54 | disposition home or self-care (01) ==
LOC: EDINP 12:01 → ED 12:01 → SUATTDRO 16:19 → 2N 17:13

== ENCOUNTER 2024-06-20 22:21 | Inpatient (IN) ==
--- NOTE | 2024-06-20 22:37 | Emergency Department Note ---
History of Present Illness General Chief complaint: Shortness of Breath/Dyspnea Stated complaint: sob History of Present Illness This 74-year-old male with a history of COPD presents ER complaining of cough and shortness of breath today. Patient recently drove back from [place]. He does have A-fib and has not on anticoagulation. Patient denies chest pain, fever, chills, productive cough, abdominal pain, leg pain or swelling. No history of PE or DVT. Home Medications Medication Instructions Recorded Confirmed Type atorvastatin 40 mg tablet 40 mg PO PM 06/03/19 06/21/24 History celecoxib 100 mg capsule (Celebrex) 100 mg PO PM 06/03/19 06/21/24 History dutasteride 0.5 mg capsule 0.5 mg PO DAILY 06/03/19 06/21/24 History gabapentin 300 mg capsule 300 mg PO BID 06/03/19 06/21/24 History (Neurontin) magnesium oxide 400 mg PO PM 06/03/19 06/21/24 History potassium chloride 20 mEq 20 meq PO PM 06/03/19 06/21/24 History tablet,extended release(part/cryst) (Klor-Con M) tapentadol 50 mg tablet,extended 50 mg PO BID PRN Pain 06/03/19 06/21/24 History release,12 hr (Nucynta ER) famotidine 40 mg tablet 40 mg PO BID 06/30/21 06/21/24 History ascorbic acid (vitamin C) 1,000 mg 1 g PO DAILY 07/05/22 06/21/24 History tablet cholecalciferol (vitamin D3) 25 25 mcg PO PM 07/05/22 06/21/24 History mcg (1,000 unit) capsule coenzyme Q10 100 mg capsule 100 mg PO DAILY 07/05/22 06/21/24 History epinephrine 0.3 mg/0.3 mL 1 ml subcut DAILY PRN Anaphylaxis 07/05/22 06/21/24 History injection, auto-injector metoprolol succinate 25 mg 25 mg PO BID #60 tabs 07/05/22 06/21/24 Rx tablet,extended release 24 hr vitamin B complex 1 cap PO PM 07/05/22 06/21/24 History amiodarone 200 mg tablet 200 mg PO DAILY 01/17/23 06/21/24 History albuterol sulfate 90 mcg/actuation 2 puff inhalation QID PRN Wheezing 09/14/23 06/21/24 Rx aerosol inhaler (Proventil HFA) #8.5 grams calcium carbonate 1,000 mg PO HS 09/30/23 06/21/24 History fluticasone fur. 100 mcg-umeclid 2 inh inhalation DAILY 09/30/23 06/21/24 History 62.5 mcg-vilant 25 mcg inhalat.powder (Trelegy Ellipta) sodium chloride, sodium See Rx Instructions .Route 12/28/23 06/21/24 Rx bicarb-nasal rinse squeeze bottle .COMPLEX #50 ea with packet (Playdom Sinus Rinse Complete with packet) Flutter Valve #1 ea 02/05/24 06/21/24 Rx nebulizer accessories #1 ea 02/05/24 06/21/24 Rx nebulizer and compressor #1 ea 02/05/24 06/21/24 Rx sodium chloride 7 % for 4 ml inhalation BID #240 mL 02/05/24 06/21/24 Rx nebulization dextromethorphan-guaifenesin 30 1 tab PO Q12H 06/04/24 06/21/24 History mg-600 mg tablet extended hr (Mucinex DM) ferrous sulfate 325 mg (65 mg 325 mg PO DAILY 06/04/24 06/21/24 History iron) tablet (FeroSul) loratadine 10 mg tablet (Allergy 10 mg PO DAILY 06/04/24 06/21/24 History Relief (loratadine)) Allergies Allergy/AdvReac Type Severity Reaction Status Date / Time bee venom protein (honey bee) Allergy Unknown localized Verified 06/04/24 08:58 swelling Penicillins Allergy Unknown rash Verified 06/04/24 08:58 tetracycline AdvReac Unknown STAINS Verified 06/04/24 08:58 TEETH Poison Tiffany Extract/Poison Allergy Unknown rash Uncoded 06/04/24 08:58 Shiloh Extra Past Med/Surg History Problem List (Updated 06/21/24 @ 00:57 by Halie El PA-C) Acute exacerbation of chronic obstructive pulmonary disease (Acute) Elevated troponin (Acute) Pneumothorax, right (Acute) Productive cough Bronchiectasis Upper airway cough syndrome PVC (premature ventricular contraction) Hypertrophic cardiomyopathy Pre-syncope (Acute) Elevated troponin (Acute) Tobacco use BPH (benign prostatic hyperplasia) Hyperlipidemia Hypertension Pacemaker Sick sinus syndrome Elevated troponin Dizziness Bronchitis Rotator cuff tear, left Paroxysmal atrial fibrillation Snoring Witnessed apneic spells Tendinitis of both rotator cuffs Osteoarthritis of carpometacarpal (CMC) joint of left thumb Persistent headaches COPD with emphysema Tendonitis of left rotator cuff Left shoulder pain Hypertension (Chronic) Chronic low back pain (Chronic) Medical History Tobacco use Pacemaker Sick sinus syndrome Snoring Witnessed apneic spells Urachal cyst Chronic low back pain Lumbar disc disease Insomnia Hyperlipidemia Hypertension Atrial fibrillation BPH (benign prostatic hyperplasia) Surgical History S/P tonsillectomy H/O arthroscopic knee surgery S/P bronchoscopy S/P lumbar spinal arthrodesis Family History Other Coronary heart disease Diabetes Hypertension Prostate cancer Social History Smoking Status: Former smoker Tobacco Type: Cigarettes Cigarettes Per Day: 10; Second Hand Exposure: No; Hx Alcohol Use: No Hx Substance Use: No Preferred Language: French Communication Ability: Effective Corporate Travel Consultant Required: No Beliefs That Will Affect Care: None marital status: Current Living Situation: Spouse current occupational status: retired Feels Safe at Home: Yes Assistive Devices: Glasses Review of Systems A total of 10 systems reviewed and were otherwise negative Physical Exam Vital Signs Vital Signs - 24 hr 06/20/24 22:26 06/20/24 22:26 06/20/24 22:26 Temperature 36.5 C Temperature Source Axillary Pulse Rate 71 Pulse Rate [Apical] Pulse Rhythm Regular Pulse Rhythm [Apical] Pulse Strength Normal Pulse Strength [Apical] Respiratory Rate 24 Respiratory Effort / Characteristics Labored Spontaneous Labored Respiratory Depth Normal Normal Blood Pressure 133/67 Blood Pressure Mean 89 Blood Pressure Position Sitting Pulse Oximetry 91 91 Oxygen Delivery Method Nasal Cannula Nasal Cannula Oxygen Flow Rate 4 4 Sepsis Recent Fever Within 48 Hours No Sepsis New/Unexplained Change in Mental Status No Sepsis Action Taken by Nursing No Action Required 06/20/24 22:26 06/20/24 22:26 06/20/24 22:33 Temperature Temperature Source Pulse Rate 70 Pulse Rate [Apical] 70 Pulse Rhythm Pulse Rhythm [Apical] Regular Pulse Strength Pulse Strength [Apical] Normal Respiratory Rate Respiratory Effort / Characteristics Respiratory Depth Blood Pressure Blood Pressure Mean Blood Pressure Position Pulse Oximetry 91 Oxygen Delivery Method Nasal Cannula Oxygen Flow Rate 4 Sepsis Recent Fever Within 48 Hours Sepsis New/Unexplained Change in Mental Status Sepsis Action Taken by Nursing 06/20/24 23:32 Temperature Temperature Source Pulse Rate 70 Pulse Rate [Apical] Pulse Rhythm Pulse Rhythm [Apical] Pulse Strength Pulse Strength [Apical] Respiratory Rate Respiratory Effort / Characteristics Respiratory Depth Blood Pressure Blood Pressure Mean Blood Pressure Position Pulse Oximetry Oxygen Delivery Method Oxygen Flow Rate Sepsis Recent Fever Within 48 Hours Sepsis New/Unexplained Change in Mental Status Sepsis Action Taken by Nursing VITALS: Vitals are noted on the nurse's note and reviewed by myself. Vital signs high 80s on room air and EMS reports that he was in the high 70s and low 80s when they arrived GENERAL: Pleasant gentleman working to breathe who came in via EMS on the nebulizer SKIN: Capillary reflex less than 2 seconds. HEENT: Normocephalic. PERRLA. EOMI. Nares patent. Mucous membranes moist. Neck is supple without nuchal rigidity. HEART: Regular rate and rhythm LUNGS: Diffuse inspiratory and end expiratory wheezes ABDOMEN: Positive bowel sounds x 4. Normal tympanic percussion. Soft, nontender, without masses or organomegaly. Vallecillo sign negative. No guarding or rebound tenderness. no CVA tenderness MUSCULOSKELETAL: No gross musculoskeletal defects. NEURO: Patient was alert and oriented to person place and time. No focal neurological deficits. Course Administered Medications Discontinued Medications Ioversol (Optiray 320 125ml) 119 ml IV ONCE ONE Stop: 06/20/24 23:16 Last Admin: 06/20/24 23:16 Dose: 119 ml Documented By: ARIELLE Levalbuterol HCl (Levalbuterol 0.31mg/3 Ml Vial) 0.31 mg NEB NOW STA Stop: 06/20/24 22:27 Last Admin: 06/20/24 22:39 Dose: 0.31 mg Documented By: DAFNE Lidocaine HCl (Lidocaine 1% Local 20 Ml Vial) Confirm Administered Dose 20 ml .ROUTE .STK-MED ONE Stop: 06/20/24 23:43 Last Admin: 06/21/24 01:02 Dose: Not Given Documented By: IDD Lidocaine/Epinephrine (Lidocaine 1%/Epinephrine 1:100,000 50 Ml Vial) Confirm Administered Dose 20 ml .ROUTE .STK-MED ONE Stop: 06/20/24 23:51 Last Admin: 06/21/24 00:00 Dose: 10 ml Documented By: SUSSY Methylprednisolone (Methylprednisolone 125 Mg/2 Ml Vial) 125 mg IV NOW STA Stop: 06/20/24 22:27 Last Admin: 06/20/24 22:39 Dose: 125 mg Documented By: DAFNE Medical Decision Making Medical Records Attestation: I reviewed the patient's medical records. Home Medications Current Medication List: was personally reviewed by me Laboratory Data Attestation: I reviewed the patient's lab results. 06/20/24 22:28 06/20/24 22:28 Lab Results 06/20/24 06/20/24 Range/Units 22:28 22:33 WBC 15.02 H (4.8-10.8) K/ul RBC 3.46 L (4.70-6.10) M/uL Hgb 12.3 L (14.0-18.0) g/dl POC Hgb 12.6 L (14.0-18.0) g/dl Hct 36.6 L (42.0-52.0) % POC Hct 37 L (42-52) % MCV 105.8 H (80.0-100.0) fL MCH 35.5 H (25.0-34.0) pg MCHC 33.6 (32.0-36.0) g/dL RDW Std Deviation 62.5 H (36.4-46.3) fL RDW Coeff of Iva 16.1 H (11.5-14.5) % Plt Count 233 (130-400) K/uL MPV 10.0 (9.4-12.4) fL Immature Gran % (Auto) 0.3 % Neut % (Auto) 77.3 % Lymph % (Auto) 12.6 % [place] % (Auto) 8.6 % Eos % (Auto) 0.7 % Baso % (Auto) 0.5 % Neut # (Auto) 11.61 H (1.40-6.50) K/uL Lymph # (Auto) 1.90 (1.20-3.40) K/uL [place] # (Auto) 1.29 H (0.11-0.59) K/uL Eos # (Auto) 0.10 (0.00-0.50) K/uL Baso # (Auto) 0.07 (0.00-0.20) K/uL Immature Gran # (Auto) 0.05 (0.01-0.20) K/uL Absolute Nucleated RBC 0.02 (0.00-0.12) K/uL Nucleated RBC % (auto) 0.1 % VBG pH 7.32 L (7.36-7.41) VBG pCO2 64 H (38-50) mmHg VBG pO2 22 mmHg VBG HCO3 33 mmol/L VBG O2 Saturation < 60.0 % VBG Base Excess 4.9 mEq/L POC Sodium 142 (135-144) mmol/L Sodium 142 (136-145) mmol/L POC Potassium 4.3 (3.3-5.0) mmol/L Potassium 4.3 (3.5-5.1) mmol/L POC Chloride 103 (101-112) mmol/L Chloride 104 (98-107) mmol/L Carbon Dioxide 31 (21-32) mmol/L POC Total CO2 30 (24-31) mmol/L Anion Gap 7 (3-11) POC Anion Gap 14.0 L (16-25) mmol/L POC BUN 33 H (7-18) mg/dl BUN 30 H (6-23) mg/dl Creatinine 1.28 (0.6-1.4) mg/dl POC Creatinine 1.5 H (0.6-1.3) mg/dl Est Cr Clr Drug Dosing 46.7 ml/min Est GFR ( Amer) 63.5 ml/min Est GFR (Non-Af Amer) 54.8 ml/min BUN/Creatinine Ratio 23.4 H (10-20) Glucose 134 H (70-99(Fasting)) mg/dl POC Glucose (other) 132 H (70-99) mg/dl Calcium 9.2 (8.6-10.3) mg/dl POC Ioniz Calcium [place]ison 1.19 (1.12-1.32) mmol/l Magnesium 2.2 (1.7-2.4) mg/dl Total Bilirubin 0.7 (0.2-1.0) mg/dl AST 30 (13-39) U/L ALT 24 (7-52) U/L Alkaline Phosphatase 43 (34-104) U/L Troponin I High Sens 150.8 H* (0-20) pg/ml B-Natriuretic Peptide 320 H (0-100) pg/ml Total Protein 6.8 (6.0-8.3) gm/dl Albumin 4.5 (3.4-5.0) gm/dl Globulin 2.3 L (2.5-4.0) gm/dl Albumin/Globulin Ratio 2.0 (0.9-2) Lipase 21 (11-82) U/L Adenovirus (PCR) Not Detected (NotDetected) B. pertussis DNA (PCR) Not Detected (NotDetected) B.parapertussis DNA PCR Not Detected (NotDetected) C. pneumoniae DNA (PCR) Not Detected (NotDetected) Coronavirus OC43 (PCR) Not Detected (NotDetected) Coronavirus HKU1 (PCR) Not Detected (NotDetected) Coronavirus 229E (PCR) Not Detected (NotDetected) SARS-CoV-2 (PCR) Not Detected (NotDetected) Coronavirus NL63 (PCR) Not Detected (NotDetected) Human Metapneumovir PCR Not Detected (NotDetected) Influenza Type A (PCR) Not Detected (NotDetected) Influenza Type B (PCR) Not Detected (NotDetected) M. pneumoniae (PCR) Not Detected (NotDetected) Parainfluenza 1 (PCR) Not Detected (NotDetected) Parainfluenza 2 (PCR) Not Detected (NotDetected) Parainfluenza 3 (PCR) Not Detected (NotDetected) Parainfluenza 4 (PCR) Not Detected (NotDetected) RSV (PCR) Not Detected (NotDetected) Entero/Rhino (PCR) Not Detected (NotDetected) Imaging Data Attestation: I personally reviewed and interpreted this imaging study as follows: Radiologist's Impression: Chest CTA 06/20/24 22:34 CR Exam(s): CTA CHEST IV Amt: 119 ml opti 320 EXAM: CT Angiography Chest With Intravenous Contrast CLINICAL HISTORY: Evaluation for potential pulmonary embolism. PE. TECHNIQUE: Axial computed tomographic angiography images of the chest with intravenous contrast. CTDI is 10.59 mGy and DLP is 408.31 mGy-cm. Automated exposure control was utilized for the study. A dose lowering technique was utilized adhering to the principles of ALARA. MIP reconstructed images were created and reviewed. COMPARISON: No relevant prior studies available. FINDINGS: Pulmonary arteries: No evidence for pulmonary embolism. Aorta: Atherosclerotic calcification of the aorta. No aneurysm. Lungs: Subsegmental changes noted in the posterior aspect of the right upper lobe and less prominently in the posterior left lower lobe. Minimal dependent subsegmental changes in the posterior left upper lobe. Pleural space: Large right pneumothorax, estimated at 70-80%. No significant effusion. Heart: The cardiac chambers are enlarged. Asymmetric thickening of the interventricular septum. Bones/joints: Accounting for mild respiratory artifact, no definite displaced rib fracture. The remaining osseous structures are unremarkable. No dislocation. Soft tissues: Unremarkable. Lymph nodes: Nonspecific subcentimeter AP window lymph nodes. Tubes, lines and devices: Dual lead left subclavian approach pacer. IMPRESSION: 1. Large right pneumothorax, estimated at 70-80%. 2. Subsegmental changes noted in the posterior aspect of the right upper lobe and less prominently in the posterior left lower lobe. With the large pneumothorax, the primary consideration is atelectasis. Differential consideration includes contusive injury or pneumonia. 3. No evidence for pulmonary embolism. Communications: Call Doctor Pneumothorax Electronically signed by: Sam Niño MD 06/20/24 23:42 PM MDM Narrative Prior records/ancillary studies reviewed. Triage Nursing notes reviewed. Additional history obtained from the EMS. The patient's history was concerning for respiratory difficulties. Differential diagnosis: Etiologies such as infections, reactive airway disease, pneumonia, pneumothorax, COPD, CHF, cardiac ischemia, pulmonary embolism, musculoskeletal, gastrointestinal, as well as others were entertained. Physical examination: As above. ER treatment provided: An order was placed for continuous cardiac monitoring. The monitor shows a rate of 60-100 with a paced rhythm per my interpretation. Xopenex, Solu-Medrol Pneumothorax catheter was placed by my attending On reassessment the patient felt better. Diagnostic interpretation by me: The electrocardiogram was ordered for SOB. ECG: Paced rhythm with rate of 71. No Sgarbossa. Impression paced rhythm independently interpreted by myself The labs Independently Interpreted by myself revealed elevated troponin most likely secondary to COPD exacerbation and pneumothorax Mild leukocytosis, mild anemia Imaging studies: Chest x-ray right-sided pneumothorax per my independent interpretation. Postprocedure chest x-ray shows improved pneumothorax and proper placement of the tube per my independent interpretation CTA as above Consultation: A consultation was placed with the hospitalist. The case was discussed and diagnostics were reviewed. The patient was evaluated in the ER for further treatment. This appears to be consistent with pneumothorax with COPD exacerbation with type II MT. Procedure was done by my attending and please see his note for further information regarding this for the pneumothorax. Patient felt much better after being medicated as above and after the procedure. Vital signs did improve. He is agreeable to treatment plan of admission. By the evaluation outlined above emergent etiologies such as CHF, pulmonary embolism, reactive airway disease, pneumonia, musculoskeletal, serious bacterial infections, as well as others were deemed relatively unlikely. The pt informed about the findings as listed above. All questions were answered and pleased with the treatment. The chart was completed utilizing [employer] Speech voice recognition software. Grammatical errors, random word insertions, pronoun errors, and incomplete sentences are an occassional consequence of this system due to software limitations, ambient noise, and hardware issues. Any formal questions or concerns about the content, text, or information contained within the body of this dictation should be directly addressed to the physician driller's assistant for clarification. Impression & Plan Pneumothorax, right, Elevated troponin, Acute exacerbation of chronic obstructive pulmonary disease Discharge Plan Visit Data Chief Complaint: Shortness of Breath/Dyspnea Stated Complaint: sob ED Provider: Va[facility] ED Midlevel Provider: Halie El Discharge Problem: Pneumothorax, right, Elevated troponin, Acute exacerbation of chronic obstructive pulmonary disease Patient Disposition: Admitted As Inpatient Condition: Fair Discharge Instructions Interventions: ED Discharge Assessment Last Done: 06/21/24 01:16
[2024-06-20] MEDS: LEVALBUTEROL 0.31MG/3 ML VIAL NEB STA (22:39)
[2024-06-20] MEDS: methylPREDNISolone 125 MG/2 ML VIAL IV STA (22:39)
[2024-06-20 22:42] LABS: Base Excess VBG 4.9 mEq/L; HCO3 VBG 33 mmol/L; Oxygen Saturation VBG < 60.0 %; PCO2 VBG 64 mmHg (38-50); PO2 VBG 22 mmHg; pH VBG 7.32 (7.36-7.41)
[2024-06-20 22:46] LABS: iSTAT Creatinine 1.5 mg/dl (0.6-1.3); iSTAT Hemoglobin 12.6 g/dl (14.0-18.0); iSTAT Ionized Calcium 1.19 mmol/l (1.12-1.32); iSTAT Potassium 4.3 mmol/L (3.3-5.0)
[2024-06-20 22:48] LABS: Basophils # (auto) 0.07 K/uL (0.00-0.20); Basophils % (auto) 0.5 %; Eosinophils % (auto) 0.7 %; Hematocrit (blood only) 36.6 % (42.0-52.0); Hemoglobin 12.3 g/dl (14.0-18.0); Immature Granulocytes # (auto) 0.05 K/uL (0.01-0.20); Immature Granulocytes % (auto) 0.3 %; Lymphocytes % (auto) 12.6 %; Mean Corpuscular Hemoglobin 35.5 pg (25.0-34.0); Mean Corpuscular Hgb Conc 33.6 g/dL (32.0-36.0); Mean Corpuscular Volume 105.8 fL (80.0-100.0); Monocytes # (auto) 1.29 K/uL (0.11-0.59); Monocytes % (auto) 8.6 %; Neutrophils # (auto) 11.61 K/uL (1.40-6.50); Neutrophils % (auto) 77.3 %; Nucleated RBC # (auto) 0.02 K/uL (0.00-0.12); Nucleated RBC % (auto) 0.1 %; Platelet Count 233 K/uL (130-400); RDW Coefficient of Variation 16.1 % (11.5-14.5); RDW Standard Deviation 62.5 fL (36.4-46.3); Red Blood Count 3.46 M/uL (4.70-6.10); White Blood Count 15.02 K/ul (4.8-10.8)
[2024-06-20 23:03] LABS: Albumin Level 4.5 gm/dl (3.4-5.0); BUN Creatinine Ratio 23.4 (10-20); Bilirubin,Total 0.7 mg/dl (0.2-1.0); Calcium 9.2 mg/dl (8.6-10.3); Creatinine Clr Calc Pharmacy 46.7 ml/min; Est GFR (African American) 63.5 ml/min; Est GFR (Non-African American) 54.8 ml/min; Globulin 2.3 gm/dl (2.5-4.0); Magnesium 2.2 mg/dl (1.7-2.4); Potassium 4.3 mmol/L (3.5-5.1); Total Protein 6.8 gm/dl (6.0-8.3)
[2024-06-20] MEDS: OPTIRAY 320 125ml IV ONE (23:16)
[2024-06-20 23:18] LABS: Troponin I High Sensitivity 150.8 pg/ml (0-20)
[2024-06-20 23:42] LABS: Adenovirus PCR Not Detected (NotDetected); Bordetella parapertussis PCR Not Detected (NotDetected); Bordetella pertussis PCR Not Detected (NotDetected); Chlamydia pneumoniae PCR Not Detected (NotDetected); Coronavirus 229E PCR Not Detected (NotDetected); Coronavirus CoV-2 (COVID19)PCR Not Detected (NotDetected); Coronavirus HKU1 PCR Not Detected (NotDetected); Coronavirus NL63 PCR Not Detected (NotDetected); Coronavirus OC43PCR Not Detected (NotDetected); Human Metapneumovirus PCR Not Detected (NotDetected); Influenza A PCR Not Detected (NotDetected); Influenza B PCR Not Detected (NotDetected); Mycoplasma pneumoniae PCR Not Detected (NotDetected); Parainfluenza Virus 1 PCR Not Detected (NotDetected); Parainfluenza Virus 2 PCR Not Detected (NotDetected); Parainfluenza Virus 3 PCR Not Detected (NotDetected); Parainfluenza Virus 4 PCR Not Detected (NotDetected); Respiratory Syncytial VirusPCR Not Detected (NotDetected); Rhinovirus/Enterovirus PCR Not Detected (NotDetected)
--- NOTE | 2024-06-20 23:43 | CT Scan Report ---
Exam(s): CTA CHEST IV Amt: 119 ml opti 320 EXAM: CT Angiography Chest With Intravenous Contrast CLINICAL HISTORY: Evaluation for potential pulmonary embolism. PE. TECHNIQUE: Axial computed tomographic angiography images of the chest with intravenous contrast. CTDI is 10.59 mGy and DLP is 408.31 mGy-cm. Automated exposure control was utilized for the study. A dose lowering technique was utilized adhering to the principles of ALARA. MIP reconstructed images were created and reviewed. COMPARISON: No relevant prior studies available. FINDINGS: Pulmonary arteries: No evidence for pulmonary embolism. Aorta: Atherosclerotic calcification of the aorta. No aneurysm. Lungs: Subsegmental changes noted in the posterior aspect of the right upper lobe and less prominently in the posterior left lower lobe. Minimal dependent subsegmental changes in the posterior left upper lobe. Pleural space: Large right pneumothorax, estimated at 70-80%. No significant effusion. Heart: The cardiac chambers are enlarged. Asymmetric thickening of the interventricular septum. Bones/joints: Accounting for mild respiratory artifact, no definite displaced rib fracture. The remaining osseous structures are unremarkable. No dislocation. Soft tissues: Unremarkable. Lymph nodes: Nonspecific subcentimeter AP window lymph nodes. Tubes, lines and devices: Dual lead left subclavian approach pacer. IMPRESSION: 1. Large right pneumothorax, estimated at 70-80%. 2. Subsegmental changes noted in the posterior aspect of the right upper lobe and less prominently in the posterior left lower lobe. With the large pneumothorax, the primary consideration is atelectasis. Differential consideration includes contusive injury or pneumonia. 3. No evidence for pulmonary embolism. Communications: Call Doctor Pneumothorax Electronically signed by: Sam Niño MD 06/20/24 23:42 PM
[2024-06-21] MEDS: LIDOCAINE 1%/EPINEPHRINE 1:100,000 50 ML VIAL ONE
--- NOTE | 2024-06-21 00:18 | Emergency Department Note ---
ED Visit Note Physician Evaluation Note: Patient was seen in conjunction with the midlevel provider. Please see the midlevel provider note for full details of the patient's visit. I have personally evaluated and examined this patient. Patient presented to the ED with shortness of breath, chest x-ray shows evidence of a right sided pneumothorax that is fairly significant. Patient remained hemodynamically stable on nasal cannula oxygen. I discussed these findings with the patient, he is in agreement to proceed with placement of pneumothorax catheter. Please see procedure note for details. Patient tolerated the procedure well. Follow-up chest x-ray imaging shows improvement in previously noted pneumothorax. Patient will be admitted to the hospitalist service overnight for observation and further care. I agree with assessment and plan of NARCISA Shine, DO Pneumothorax catheter placement: -Verbal consent for procedure was obtained by the patient at the bedside -Intercostal space next to the right nipple line was prepped sterilely and draped. -Patient was given anesthesia with 10 cc of lidocaine with epinephrine, 1% -Utilizing sterile technique, fourth the fifth intercostal space was identified slightly anterior to the midaxillary line -Small incision was made with a #11 blade -Pneumothorax catheter needle was advanced utilizing aspiration until no resistance was met -Catheter was then advanced over the needle with audible air exiting the catheter once needle was removed -Tubing was placed, flutter valve was placed at the end of the tubing, catheter was placed to intermittent suction -Chest x-ray on follow-up shows evidence of improvement in previously noted pneumothorax -Patient tolerated the procedure well .
--- NOTE | 2024-06-21 00:21 | History & Physical Report ---
Date of Service June 21, 2024 Assessment & Plan (1) Acute hypoxemic respiratory failure: Plan: Hypoxemic, hypercapnic respiratory failure Secondary to COPD exacerbation Pneumothorax secondary to above Troponin elevation secondary to illness SSS status post PPM nonocclusive CAD HOCM hypertension, stable hyperlipidemia, on statin Rx prediabetes, hemoglobin A1c of 5.02 October 2023 chronic anemia, hemoglobin at the baseline chronic pain on narcotics ongoing tobacco abuse Admit to PCU Supplemental O2 Recheck VBG Pulmonary consult re: respiratory failure, COPD exacerbation, pneumothorax Follow troponin, TTE if with progression Prednisone course, nebs RTC for COPD exacerbation, antibiotics currently not indicated Nicotine patch as needed DVT prophylaxis. Lovenox subcu Full code Text document was generated using [employer] voice recognition software. It may contain grammatical or spelling errors. Kindly contact undersigned for clarification of any documentation item in question. History of Present Illness Chief Complaint: Worsening shortness of breath Primary Care Provider: Sarabjit Werner, History obtained from patient, family, and records. Medical history significant for SSS status post PPM, nonocclusive CAD, NSVT/PVCs, HOCM, rheumatic fever as per records hypertension, hyperlipidemia, COPD, pulmonary nodules, GERD, prediabetes, BPH, chronic anemia (baseline hemoglobin 12-13), chronic pain on narcotics, ongoing tobacco abuse. Last admission September 2023 for dizziness/presyncope possibly from dehydration. Patient just returned from [facility] vacation 2 days ago. [place] very tired upon arrival at home. Yesterday, patient noted worsening SOB on exertion, cough symptoms productive of white sputum more than usual. Minimal substernal discomfort. Worsening symptoms last night. EMS called to patient's home. O2 sat 70s on room air upon EMS arrival. Minimal response to neb treatment administered. Solu-Medrol, neb treatment administered at the ER. CT chest showed 1. Large right pneumothorax, estimated at 70-80%. 2. Subsegmental changes noted in the posterior aspect of the right upper lobe and less prominently in the posterior left lower lobe. With the large pneumothorax, the primary consideration is atelectasis. Differential consideration includes contusive injury or pneumonia. 3. No evidence for pulmonary embolism. Pneumothorax catheter placed at the ER. Patient feeling much better. 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 Allergies Allergy/AdvReac Type Severity Reaction Status Date / Time bee venom protein (honey bee) Allergy Unknown localized Verified 06/04/24 08:58 swelling Penicillins Allergy Unknown rash Verified 06/04/24 08:58 tetracycline AdvReac Unknown STAINS Verified 06/04/24 08:58 TEETH Poison Tiffany Extract/Poison Allergy Unknown rash Uncoded 06/04/24 08:58 [place] Extra Home Medications Medication Instructions Recorded Confirmed Type atorvastatin 40 mg tablet 40 mg PO PM 06/03/19 06/21/24 History celecoxib 100 mg capsule (Celebrex) 100 mg PO PM 06/03/19 06/21/24 History dutasteride 0.5 mg capsule 0.5 mg PO DAILY 06/03/19 06/21/24 History gabapentin 300 mg capsule 300 mg PO BID 06/03/19 06/21/24 History (Neurontin) magnesium oxide 400 mg PO PM 06/03/19 06/21/24 History potassium chloride 20 mEq 20 meq PO PM 06/03/19 06/21/24 History tablet,extended release(part/cryst) (Klor-Con M) tapentadol 50 mg tablet,extended 50 mg PO BID 06/03/19 06/21/24 History release,12 hr (Nucynta ER) famotidine 40 mg tablet 40 mg PO BID 06/30/21 06/21/24 History ascorbic acid (vitamin C) 1,000 mg 1 g PO DAILY 07/05/22 06/21/24 History tablet cholecalciferol (vitamin D3) 25 25 mcg PO PM 07/05/22 06/21/24 History mcg (1,000 unit) capsule coenzyme Q10 100 mg capsule 100 mg PO DAILY 07/05/22 06/21/24 History epinephrine 0.3 mg/0.3 mL 1 ml subcut DAILY PRN Anaphylaxis 07/05/22 06/21/24 History injection, auto-injector metoprolol succinate 25 mg 25 mg PO BID #60 tabs 07/05/22 06/21/24 Rx tablet,extended release 24 hr vitamin B complex 1 cap PO PM 07/05/22 06/21/24 History amiodarone 200 mg tablet 200 mg PO DAILY 01/17/23 06/21/24 History albuterol sulfate 90 mcg/actuation 2 puff inhalation QID PRN Wheezing 09/14/23 06/21/24 Rx aerosol inhaler (Proventil HFA) #8.5 grams calcium carbonate 1,000 mg PO HS 09/30/23 06/21/24 History fluticasone fur. 100 mcg-umeclid 2 inh inhalation DAILY 09/30/23 06/21/24 History 62.5 mcg-vilant 25 mcg inhalat.powder (Trelegy Ellipta) sodium chloride, sodium See Rx Instructions .Route 12/28/23 06/21/24 Rx bicarb-nasal rinse squeeze bottle .COMPLEX #50 ea with packet (Prodigy Game Sinus Rinse Complete with packet) Flutter Valve #1 ea 02/05/24 06/21/24 Rx nebulizer accessories #1 ea 02/05/24 06/21/24 Rx nebulizer and compressor #1 ea 02/05/24 06/21/24 Rx sodium chloride 7 % for 4 ml inhalation BID #240 mL 02/05/24 06/21/24 Rx nebulization dextromethorphan-guaifenesin 30 1 tab PO Q12H 06/04/24 06/21/24 History mg-600 mg tablet extended hr (Mucinex DM) ferrous sulfate 325 mg (65 mg 325 mg PO DAILY 06/04/24 06/21/24 History iron) tablet (FeroSul) loratadine 10 mg tablet (Allergy 10 mg PO DAILY 06/04/24 06/21/24 History Relief (loratadine)) Past Med/Surg History Problem List (Updated 06/21/24 @ 02:33 by Junior Byrne MD) Acute hypoxemic respiratory failure Acute exacerbation of chronic obstructive pulmonary disease (Acute) Elevated troponin (Acute) Pneumothorax, right (Acute) Productive cough Bronchiectasis Upper airway cough syndrome PVC (premature ventricular contraction) Hypertrophic cardiomyopathy Pre-syncope (Acute) Elevated troponin (Acute) Tobacco use BPH (benign prostatic hyperplasia) Hyperlipidemia Hypertension Pacemaker Sick sinus syndrome Elevated troponin Dizziness Bronchitis Rotator cuff tear, left Paroxysmal atrial fibrillation Snoring Witnessed apneic spells Tendinitis of both rotator cuffs Osteoarthritis of carpometacarpal (CMC) joint of left thumb Persistent headaches COPD with emphysema Tendonitis of left rotator cuff Left shoulder pain Hypertension (Chronic) Chronic low back pain (Chronic) Medical History Tobacco use Pacemaker Sick sinus syndrome Snoring Witnessed apneic spells Urachal cyst Chronic low back pain Lumbar disc disease Insomnia Hyperlipidemia Hypertension Atrial fibrillation BPH (benign prostatic hyperplasia) Surgical History S/P tonsillectomy H/O arthroscopic knee surgery S/P bronchoscopy S/P lumbar spinal arthrodesis Family History Other Coronary heart disease Diabetes Hypertension Prostate cancer Social History Smoking Status: Never smoker Tobacco Type: Cigarettes Cigarettes Per Day: 10; Second Hand Exposure: No; Do You Dip or Chew Tobacco: No; Hx Alcohol Use: No Hx Substance Use: No Preferred Language: [place] Communication Ability: Effective Bleacher Pulp Required: No Beliefs That Will Affect Care: None marital status: Current Living Situation: Spouse and Family current occupational status: retired Other Information That Helps Us Care for You: No Feels Safe at Home: Yes Safety Concerns: Feels Safe At This Time Assistive Devices: Glasses Review of Systems Review of Systems: As per HPI, all other systems reviewed and negative Physical Exam Physical Exam: GENERAL: Comfortable, pleasant, no respiratory distress SKIN: Pallor, warm HEENT: Pale palpebral conjunctivae, no ptosis, dry buccal mucosa NECK : Supple, no tenderness CHEST : Decreased breath sounds, minimal right chest wall tenderness, right chest wall catheter HEART : RRR, no obvious murmurs ABDOMEN: no distention, nontender EXTREMITIES : No LE swelling/tenderness, no other conspicuous deformities noted NEUROLOGIC : Coherent, no facial asymmetry, no other gross focality Results & Data Results & Data Vital Signs (Past 12 Hours) Vital Signs Temp Pulse Pulse Resp BP Pulse Ox O2 Del Method 06/20/24 22:33 70 06/20/24 22:26 91 Nasal Cannula 06/20/24 22:26 70 06/20/24 22:26 91 Nasal Cannula 06/20/24 22:26 36.5 C 71 24 133/67 91 Nasal Cannula O2 Flow Rate 06/20/24 22:33 06/20/24 22:26 4 06/20/24 22:26 06/20/24 22:26 4 06/20/24 22:26 4 Laboratory Results Laboratory Results WBC 15.02 K/ul (4.8-10.8) H 06/20/24 22: RBC 3.46 M/uL (4.70-6.10) L 06/20/24 22:28 Hgb 12.3 g/dl (14.0-18.0) L 06/20/24 22: POC Hgb 12.6 g/dl (14.0-18.0) L 06/20/24 22: Hct 36.6 % (42.0-52.0) L 06/20/24 22: POC Hct 37 % (42-52) L 06/20/24 22: MCV 105.8 fL (80.0-100.0) H 06/20/24 22: MCH 35.5 pg (25.0-34.0) H 06/20/24 22: MCHC 33.6 g/dL (32.0-36.0) 06/20/24 22: RDW Std Deviation 62.5 fL (36.4-46.3) H 06/20/24 22: RDW Coeff of Iva 16.1 % (11.5-14.5) H 06/20/24 22: Plt Count 233 K/uL (130-400) 06/20/24 22: MPV 10.0 fL (9.4-12.4) 06/20/24 22: Immature Gran % (Auto) 0.3 % 06/20/24 22: Neut % (Auto) 77.3 % 06/20/24 22: Lymph % (Auto) 12.6 % 06/20/24 22: [place] % (Auto) 8.6 % 06/20/24 22: Eos % (Auto) 0.7 % 06/20/24 22: Baso % (Auto) 0.5 % 06/20/24 22: Neut # (Auto) 11.61 K/uL (1.40-6.50) H 06/20/24 22: Lymph # (Auto) 1.90 K/uL (1.20-3.40) 06/20/24 22:28 [place] # (Auto) 1.29 K/uL (0.11-0.59) H 06/20/24 22:28 Eos # (Auto) 0.10 K/uL (0.00-0.50) 06/20/24 22:28 Baso # (Auto) 0.07 K/uL (0.00-0.20) 06/20/24 22: Immature Gran # (Auto) 0.05 K/uL (0.01-0.20) 06/20/24 22: Absolute Nucleated RBC 0.02 K/uL (0.00-0.12) 06/20/24 22: Nucleated RBC % (auto) 0.1 % 06/20/24: VBG pH 7.32 (7.36-7.41) L 06/20/24 22: VBG pCO2 64 mmHg (38-50) H 06/20/24 22: VBG pO2 22 mmHg 06/20/24 22: VBG HCO3 33 mmol/L 06/20/24 22: VBG O2 Saturation < 60.0 % 06/20/24 22:28 VBG Base Excess 4.9 mEq/L 06/20/24 22: POC Sodium 142 mmol/L (135-144) 06/20/24 22: Sodium 142 mmol/L (136-145) 06/20/24 22: POC Potassium 4.3 mmol/L (3.3-5.0) 06/20/24 22: Potassium 4.3 mmol/L (3.5-5.1) 06/20/24 22: POC Chloride 103 mmol/L (101-112) 06/20/24 22: Chloride 104 mmol/L (98-107) 06/20/24 22: Carbon Dioxide 31 mmol/L (21-32) 06/20/24 22: POC Total CO2 30 mmol/L (24-31) 06/20/24 22: Anion Gap 7 (3-11) 06/20/24 22:28 POC Anion Gap 14.0 mmol/L (16-25) L 06/20/24 22:33 POC BUN 33 mg/dl (7-18) H 06/20/24 22:33 BUN 30 mg/dl (6-23) H 09/27/24 22:28 Creatinine 1.28 mg/dl (0.6-1.4) 06/20/24 22: POC Creatinine 1.5 mg/dl (0.6-1.3) H 06/20/24 22:33 Est Cr Clr Drug Dosing 46.7 ml/min 06/20/24 22:28 Est GFR ( Amer) 63.5 ml/min 06/20/24 22:28 Est GFR (Non-Af Amer) 54.8 ml/min 06/20/24 22: BUN/Creatinine Ratio 23.4 (10-20) H 06/20/24 22:28 Glucose 134 mg/dl (70-99(Fasting)) H 06/20/24 22: POC Glucose (other) 132 mg/dl (70-99) H 06/20/24 22:33 Calcium 9.2 mg/dl (8.6-10.3) 06/20/24 22: POC Ioniz Calcium [place] 1.19 mmol/l (1.12-1.32) 06/20/24 22: Magnesium 2.2 mg/dl (1.7-2.4) 06/20/24 22: Total Bilirubin 0.7 mg/dl (0.2-1.0) 06/20/24 22: AST 30 U/L (13-39) 06/20/24 22: ALT 24 U/L (7-52) 06/20/24 22: Alkaline Phosphatase 43 U/L (34-104) 06/20/24 22:28 Troponin I High Sens 150.8 pg/ml (0-20) H* 06/20/24 22:28 B-Natriuretic Peptide 320 pg/ml (0-100) H 06/20/24 22:28 Total Protein 6.8 gm/dl (6.0-8.3) 06/20/24 22: Albumin 4.5 gm/dl (3.4-5.0) 06/20/24 22: Globulin 2.3 gm/dl (2.5-4.0) L 06/20/24 22:28 Albumin/Globulin Ratio 2.0 (0.9-2) 06/20/24 22: Lipase 21 U/L (11-82) 06/20/24 22:28 Adenovirus (PCR) Not Detected (NotDetected) 06/20/24 22:28 B. pertussis DNA (PCR) Not Detected (NotDetected) 06/20/24 22:28 B.parapertussis DNA PCR Not Detected (NotDetected) 06/20/24 22:28 C. pneumoniae DNA (PCR) Not Detected (NotDetected) 06/20/24 22:28 Coronavirus OC43 (PCR) Not Detected (NotDetected) 06/20/24 22:28 Coronavirus HKU1 (PCR) Not Detected (NotDetected) 06/20/24 22:28 Coronavirus 229E (PCR) Not Detected (NotDetected) 06/20/24 22:28 SARS-CoV-2 (PCR) Not Detected (NotDetected) 06/20/24 22:28 Coronavirus NL63 (PCR) Not Detected (NotDetected) 06/20/24 22:28 Human Metapneumovir PCR Not Detected (NotDetected) 06/20/24 22:28 Influenza Type A (PCR) Not Detected (NotDetected) 06/20/24 22:28 Influenza Type B (PCR) Not Detected (NotDetected) 06/20/24 22:28 M. pneumoniae (PCR) Not Detected (NotDetected) 06/20/24 22:28 Parainfluenza 1 (PCR) Not Detected (NotDetected) 06/20/24 22:28 Parainfluenza 2 (PCR) Not Detected (NotDetected) 06/20/24 22:28 Parainfluenza 3 (PCR) Not Detected (NotDetected) 06/20/24 22:28 Parainfluenza 4 (PCR) Not Detected (NotDetected) 06/20/24 22:28 RSV (PCR) Not Detected (NotDetected) 06/20/24 22:28 Entero/Rhino (PCR) Not Detected (NotDetected) 06/20/24 22:28 Impressions Chest CTA 06/20/24 22:34 CR Exam(s): CTA CHEST IV Amt: 119 ml opti 320 EXAM: CT Angiography Chest With Intravenous Contrast CLINICAL HISTORY: Evaluation for potential pulmonary embolism. PE. TECHNIQUE: Axial computed tomographic angiography images of the chest with intravenous contrast. CTDI is 10.59 mGy and DLP is 408.31 mGy-cm. Automated exposure control was utilized for the study. A dose lowering technique was utilized adhering to the principles of ALARA. MIP reconstructed images were created and reviewed. COMPARISON: No relevant prior studies available. FINDINGS: Pulmonary arteries: No evidence for pulmonary embolism. Aorta: Atherosclerotic calcification of the aorta. No aneurysm. Lungs: Subsegmental changes noted in the posterior aspect of the right upper lobe and less prominently in the posterior left lower lobe. Minimal dependent subsegmental changes in the posterior left upper lobe. Pleural space: Large right pneumothorax, estimated at 70-80%. No significant effusion. Heart: The cardiac chambers are enlarged. Asymmetric thickening of the interventricular septum. Bones/joints: Accounting for mild respiratory artifact, no definite displaced rib fracture. The remaining osseous structures are unremarkable. No dislocation. Soft tissues: Unremarkable. Lymph nodes: Nonspecific subcentimeter AP window lymph nodes. Tubes, lines and devices: Dual lead left subclavian approach pacer. IMPRESSION: 1. Large right pneumothorax, estimated at 70-80%. 2. Subsegmental changes noted in the posterior aspect of the right upper lobe and less prominently in the posterior left lower lobe. With the large pneumothorax, the primary consideration is atelectasis. Differential consideration includes contusive injury or pneumonia. 3. No evidence for pulmonary embolism. Communications: Call Doctor Pneumothorax Electronically signed by: Sam Niño MD 06/20/24 23:42 PM Diagnostic Findings EKG as per my interpretation :Rate 75, paced rhythm
[2024-06-21] MEDS: LIDOCAINE 1% LOCAL 20 ML VIAL ONE (01:02)
[2024-06-21] MEDS ORDERED: PROMETHAZINE 6.25 MG/50.25 ML BAG IV PRN (01:21)
[2024-06-21] MEDS ORDERED: BENZONATATE 100 MG CAPSULE PO PRN (01:26)
[2024-06-21 02:03] LABS: Base Excess VBG 0.8 mEq/L; HCO3 VBG 28 mmol/L; Oxygen Saturation VBG < 60.0 %; PCO2 VBG 56 mmHg (38-50); PO2 VBG 24 mmHg; pH VBG 7.31 (7.36-7.41)
[2024-06-21] MEDS: SODIUM CHLORIDE 0.45 % 1,000 ML IV ONE (02:06)
[2024-06-21] MEDS: IPRATROPIUM BROMIDE NEB SOLN 0.02% 0.5MG/2.5ML VIAL INH SCH (07:12)
[2024-06-21] MEDS: LEVALBUTEROL 1.25 MG/3 ML NEB NEB SCH (07:12)
[2024-06-21] MEDS: SODIUM CHLOR 7% 4 ML NEB INH SCH (07:12)
--- NOTE | 2024-06-21 08:06 | XRay Report ---
SINGLE VIEW CHEST CLINICAL HISTORY: Atypical chest pain. FINDINGS: 2 AP, portable, upright chest radiographs are compared to study dated 09/30/2023 and correlat ed with chest CT dated 06/20/2024. A 2-lead cardiac pacemaker is unchanged in position. The heart is e nlarged noting atherosclerotic calcification of the thoracic aorta. The pulmonary vasculature is nonc ongested. Emphysema and chronic interstitial thickening is similar to previous. There is a large righ t-sided pneumothorax with atelectasis/consolidation of the right upper lung. The trachea is midline. The left lung appears clear. No large pleural effusion is seen. No left-sided pneumothorax is identif ied. The skeletal structures are osteopenic. The bony thorax is grossly intact. Calcific tendinopathy is observed in the right shoulder. Degenerative change is noted in the spine. Excreted IV contrast i s seen in the renal collecting systems. IMPRESSION: 1. Large right-sided pneumothorax with atelectasis/consolidation of the right upper lung. 2. Cardiomegaly and cardiac pacemaker without radiographic evidence of congestive failure. 3. Emphysema. ACT 112: Negative or not required by law. Electronically signed by: Jay Mayes M.D. 06/21/2024 8:05 AM
--- NOTE | 2024-06-21 08:06 | XRay Report ---
SINGLE VIEW CHEST CLINICAL HISTORY: Atypical chest pain. FINDINGS: 2 AP, portable, upright chest radiographs are compared to chest x-ray and chest CT dated . A 2-lead cardiac pacemaker is unchanged in position. The heart is enlarged noting atheroscle rotic calcification of the thoracic aorta. The pulmonary vasculature is noncongested. Emphysema and c hronic interstitial thickening is similar to previous. A right-sided chest tube has been placed. The tip is straight, not coiled and projects approximately 2.5 cm deep to the pleural reflection. A right -sided pneumothorax has significantly decreased in size from previous. There is a moderate residual r ight sided apical pneumothorax with approximately 2.5 cm of pleural separation. There is persistent c onsolidation/atelectasis of the right upper lung with improved aeration from previous. The trachea is midline. The left lung appears clear. No large pleural effusion is seen. No left-sided pneumothorax is identified. The skeletal structures are osteopenic. The bony thorax is grossly intact. Degenerativ e change is noted in the shoulders and spine. IMPRESSION: 1. A right-sided chest tube has been placed as above. The tip is straight not coiled, and the cathete r extends approximately 2.5 cm into the pleural space. Correlate clinically for appropriateness of po sitioning. 2. There is a moderate residual right-sided pneumothorax. 3. There is persistent atelectasis/consolidation of the right upper lung. Aeration has significantly improved from previous. 4. Cardiomegaly and cardiac pacemaker without radiographic evidence of congestive failure. 5. Emphysema. ACT 112: Negative or not required by law. Electronically signed by: Jay Mayes M.D. 06/21/2024 8:05 AM
--- NOTE | 2024-06-21 08:09 | Cardiology Consultation ---
Date of Consultation June 21, 2024 Assessment & Plan (1) Pneumothorax, right: (2) Acute exacerbation of chronic obstructive pulmonary disease: (3) Elevated troponin: (4) Hypertrophic cardiomyopathy: (5) Paroxysmal atrial fibrillation: Plan 74-year-old male presents with large right-sided pneumothorax status post chest tube placement. Significant hypoxia documented. Elevated troponin secondary to demand ischemia, type II event, due to COPD exacerbation and pneumothorax. Resting 2D transthoracic echocardiogram will performed for completeness. ECG nondiagnostic due to AV pacing. Trend troponins. I would not initiate IV heparin at this time. Continue telemetry monitoring. History of atrial fibrillation monitored by electrophysiology. He is not chronically anticoagulated. AV paced rhythm on admission. AF burden <1% per pacemaker interrogation. [id number] 2 (age, HTN). 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 Amiodarone initiated for frequent PVCs August 2022. No significant LV outflow tract gradient per most recent echocardiogram. History of rheumatic fever without significant valvular pathology. I spent a total of 60 minutes on the date of service in preparation, delivery, and documentation of the care provided to this patient, excluding any time spent in the performance of separately billed services. History of Present Illness Reason for Consultation: Significantly elevated troponin Requesting Physician: Dr. Moya Attending Physician: Darrell Moya MD History of Present Illness 74-year-old male with history of hypertrophic obstructive cardiomyopathy, sick sinus syndrome status post pacemaker implantation, paroxysmal atrial fibrillation, and COPD presented to the emergency department with SOB. Recently traveled from [facility] back to [place]. Describes symptoms of worsening dyspnea, cough with productive white sputum and minimal substernal chest discomfort beginning yesterday. Due to progressive symptoms overnight he came to the ER via EMS. Oxygen saturation 70s on room air per EMS. Patient diagnosed with large right-sided pneumothorax via chest x-ray and CT. No evidence of pulmonary embolism. Reports mild dyspnea beginning in the early afternoon. Able to complete grocery shopping and daily activities. Began noticing significant dyspnea when climbing stairs. Using albuterol inhaler with mild relief. Symptoms became severe in the evening prompting call to 911. Significant hypoxia noted per EMS. Chest tube placed without complication in the ER. Shortness of breath significantly improved. Oxygen saturation 97% on 3 L. Denies any chest discomfort at this time. No palpitations, lightheadedness, or dizziness. Denies any recent orthopnea, PND, lower extremity edema, or claudication. Offers no other conc erns/complaints at this time. Allergies Allergy/AdvReac Type Severity Reaction Status Date / Time bee venom protein (honey bee) Allergy Unknown localized Verified 06/04/24 08:58 swelling Penicillins Allergy Unknown rash Verified 06/04/24 08:58 tetracycline AdvReac Unknown STAINS Verified 06/04/24 08:58 TEETH Poison Tiffany Extract/Poison Allergy Unknown rash Uncoded 06/04/24 08:58 [place] Extra Home Medications Medication Instructions Recorded Confirmed Type atorvastatin 40 mg tablet 40 mg PO PM 06/03/19 06/21/24 History celecoxib 100 mg capsule (Celebrex) 100 mg PO PM 06/03/19 06/21/24 History dutasteride 0.5 mg capsule 0.5 mg PO DAILY 06/03/19 06/21/24 History gabapentin 300 mg capsule 300 mg PO BID 06/03/19 06/21/24 History (Neurontin) magnesium oxide 400 mg PO PM 06/03/19 06/21/24 History potassium chloride 20 mEq 20 meq PO PM 06/03/19 06/21/24 History tablet,extended release(part/cryst) (Klor-Con M) tapentadol 50 mg tablet,extended 50 mg PO BID 06/03/19 06/21/24 History release,12 hr (Nucynta ER) famotidine 40 mg tablet 40 mg PO BID 06/30/21 06/21/24 History ascorbic acid (vitamin C) 1,000 mg 1 g PO DAILY 07/05/22 06/21/24 History tablet cholecalciferol (vitamin D3) 25 25 mcg PO PM 07/05/22 06/21/24 History mcg (1,000 unit) capsule coenzyme Q10 100 mg capsule 100 mg PO DAILY 07/05/22 06/21/24 History epinephrine 0.3 mg/0.3 mL 1 ml subcut DAILY PRN Anaphylaxis 07/05/22 06/21/24 History injection, auto-injector metoprolol succinate 25 mg 25 mg PO BID #60 tabs 07/05/22 06/21/24 Rx tablet,extended release 24 hr vitamin B complex 1 cap PO PM 07/05/22 06/21/24 History amiodarone 200 mg tablet 200 mg PO DAILY 01/17/23 06/21/24 History albuterol sulfate 90 mcg/actuation 2 puff inhalation QID PRN Wheezing 09/14/23 06/21/24 Rx aerosol inhaler (Proventil HFA) #8.5 grams calcium carbonate 1,000 mg PO HS 09/30/23 06/21/24 History fluticasone fur. 100 mcg-umeclid 2 inh inhalation DAILY 09/30/23 06/21/24 History 62.5 mcg-vilant 25 mcg inhalat.powder (Trelegy Ellipta) sodium chloride, sodium See Rx Instructions .Route 12/28/23 06/21/24 Rx bicarb-nasal rinse squeeze bottle .COMPLEX #50 ea with packet ([employer]als Sinus Rinse Complete with packet) Flutter Valve #1 ea 02/05/24 06/21/24 Rx nebulizer accessories #1 ea 02/05/24 06/21/24 Rx nebulizer and compressor #1 ea 02/05/24 06/21/24 Rx sodium chloride 7 % for 4 ml inhalation BID #240 mL 02/05/24 06/21/24 Rx nebulization dextromethorphan-guaifenesin 30 1 tab PO Q12H 06/04/24 06/21/24 History mg-600 mg tablet extended [id number] hr (Mucinex DM) ferrous sulfate 325 mg (65 mg 325 mg PO DAILY 06/04/24 06/21/24 History iron) tablet (FeroSul) loratadine 10 mg tablet (Allergy 10 mg PO DAILY 06/04/24 06/21/24 History Relief (loratadine)) Patient History Medical History Tobacco use Pacemaker Sick sinus syndrome Snoring Witnessed apneic spells Urachal cyst Chronic low back pain Lumbar disc disease Insomnia Hyperlipidemia Hypertension Atrial fibrillation BPH (benign prostatic hyperplasia) Surgical History S/P tonsillectomy H/O arthroscopic knee surgery S/P bronchoscopy S/P lumbar spinal arthrodesis Family History Other Coronary heart disease Diabetes Hypertension Prostate cancer Social History Smoking Status: Never smoker Tobacco Type: Cigarettes Cigarettes Per Day: 10; Second Hand Exposure: No; Do You Dip or Chew Tobacco: No; Hx Alcohol Use: No Hx Substance Use: No Preferred Language: Citizen Of [place] Communication Ability: Effective Piped Pocket Machine Operator Required: No Beliefs That Will Affect Care: None marital status: Current Living Situation: Spouse and Family current occupational status: retired Other Information That Helps Us Care for You: No Feels Safe at Home: Yes Safety Concerns: Feels Safe At This Time Assistive Devices: Glasses Review of Systems Review of Systems: All systems reviewed & are unremarkable except as noted in HPI & below Physical Exam Constitutional: well nourished; no acute distress Respiratory: no respiratory distress and no labored breathing Auscultation: + diminished lung sounds (right side); no crackles, no rales, no rhonchi and no wheezes Cardiovascular: Rate/Rhythm: regular rate and regular rhythm Heart Sounds: normal S1 and normal S2; no murmur Vessels: radial pulses present; no JVD and no carotid bruit Extremities: no edema Gastrointestinal (Abdomen): Inspection/Auscultation: normal bowel sounds; abdomen not distended Percussion/Palpation: abdomen nontender, no guarding, abdomen not rigid and + abdomen not soft Neurologic: CN's II-XI intact bilaterally and moves all extremities; no focal motor deficits Results & Data Vital Signs (Past 12 Hours) Vital Signs Temp Pulse Pulse Resp BP BP Pulse Ox 06/21/24 07:04 70 06/21/24 05:03 71 20 115/63 97 06/21/24 03:39 70 22 116/64 96 06/21/24 03:00 70 18 116/64 97 06/21/24 02:30 70 24 95 06/21/24 01:22 06/21/24 01:22 70 18 140/72 97 06/21/24 01:20 06/21/24 01:20 70 18 127/69 97 06/21/24 00:52 71 18 130/68 98 06/20/24 23:32 70 06/20/24 22:33 70 06/20/24 22:26 91 06/20/24 22:26 70 06/20/24 22:26 91 06/20/24 22:26 36.5 C 71 24 133/67 91 Pulse Ox O2 Del Method O2 Del Method O2 Flow Rate O2 Flow Rate 06/21/24 07:04 06/21/24 05:03 Nasal Cannula 3 06/21/24 03:39 Nasal Cannula 3 06/21/24 03:00 Nasal Cannula 3 06/21/24 02:30 Nasal Cannula 3 06/21/24 01:22 Nasal Cannula 4 06/21/24 01:22 Nasal Cannula 4 06/21/24 01:20 97 Nasal Cannula 4 06/21/24 01:20 Nasal Cannula 4 06/21/24 00:52 Nasal Cannula 4 06/20/24 23:32 06/20/24 22:33 06/20/24 22:26 Nasal Cannula 4 06/20/24 22:26 06/20/24 22:26 Nasal Cannula 4 06/20/24 22:26 Nasal Cannula 4 Laboratory Results Cardiac Enzymes 06/20/24 06/21/24 06/21/24 Range/Units 22:28 00:51 04:25 AST 30 (13-39) U/L Troponin I High Sens 150.8 H* 346.5 H* D 629.4 H* D (0-20) pg/ml B-Natriuretic Peptide 320 H (0-100) pg/ml Coagulation 06/20/24 Range/Units 22:28 B-Natriuretic Peptide 320 H (0-100) pg/ml CBC 06/20/24 Range/Units 22:28 WBC 15.02 H (4.8-10.8) K/ul RBC 3.46 L (4.70-6.10) M/uL Hgb 12.3 L (14.0-18.0) g/dl Hct 36.6 L (42.0-52.0) % Plt Count 233 (130-400) K/uL Neut # (Auto) 11.61 H (1.40-6.50) K/uL Lymph # (Auto) 1.90 (1.20-3.40) K/uL [place] # (Auto) 1.29 H (0.11-0.59) K/uL Eos # (Auto) 0.10 (0.00-0.50) K/uL Baso # (Auto) 0.07 (0.00-0.20) K/uL Comprehensive Metabolic Panel 06/20/24 Range/Units 22:28 Sodium 142 (136-145) mmol/L Potassium 4.3 (3.5-5.1) mmol/L Chloride 104 (98-107) mmol/L Carbon Dioxide 31 (21-32) mmol/L BUN 30 H (6-23) mg/dl Creatinine 1.28 (0.6-1.4) mg/dl Glucose 134 H (70-99(Fasting)) mg/dl Calcium 9.2 (8.6-10.3) mg/dl AST 30 (13-39) U/L ALT 24 (7-52) U/L Alkaline Phosphatase 43 (34-104) U/L Total Protein 6.8 (6.0-8.3) gm/dl Albumin 4.5 (3.4-5.0) gm/dl Intake and Output 06/20/24 06/21/24 06/21/24 22:59 06:59 14:59 Intake Total 0 / 0 Output Total 400 / 400 Balance -400 / -400 Intake: Oral 0 / 0 Output: Urine 400 / 400 Other: Weight 65.2 kg 65.2 kg Weight Measurement Method Built in [facility] Diagnostic Findings ECG: AV, dual paced rhythm. 2D echocardiogram report 10/01/2023: Severe asymmetric left ventricular hypertrophy involving the interventricular septum, maximum septal thickness at end diastole 2.6 cm. Left ventricular ejection fraction greater than 70%. No resting left ventricular outflow or tract gradient detected No significant mitral regurgitation Mild aortic root dilatation Compared to study dated 12/12/2022 the left ventricular septal thickness is unchanged.
[2024-06-21] MEDS ORDERED: NON-FORMULARY MEDICATION (Coenzyme Q10 100 mg Capsule) PO SCH (09:00)
[2024-06-21] MEDS ORDERED: NON-FORMULARY MEDICATION (Fluticasone-Umeclidin-Vilanter [Trelegy Ellipta] 100-62.5-25 mcg INH SCH (09:00)
[2024-06-21] MEDS: predniSONE 20 MG TAB PO SCH (09:53)
[2024-06-21] MEDS: AMIODARONE 200 MG TAB PO SCH (09:53)
[2024-06-21] MEDS: LORATADINE 10 MG TAB PO SCH (09:53)
[2024-06-21] MEDS: UMECLIDINIUM/VILANTEROL 62.5/25MCG 7 PUFFS/INHALER INH SCH (09:54)
[2024-06-21] MEDS: FLUTICASONE FUROATE 100MCG 14 PUFFS/INHALER INH SCH (09:54)
[2024-06-21] MEDS: GABAPENTIN 300 MG CAP PO SCH (09:54)
[2024-06-21] MEDS: METOPROLOL SUCC 25MG EXT REL TAB PO SCH (09:54)
[2024-06-21] MEDS: FERROUS SULFATE 325 MG TAB PO SCH (09:54)
[2024-06-21] MEDS: FAMOTIDINE 40 MG TABLET PO SCH (09:54)
[2024-06-21] MEDS: FINASTERIDE 5 MG TAB PO SCH (09:54)
[2024-06-21] MEDS: ENOXAPARIN INJ 30 MG/0.3 ML SYR SQ SCH (09:55)
[2024-06-21] MEDS: TAPENTADOL HCL ER 50 MG TABCR PO SCH (09:59)
--- NOTE | 2024-06-21 12:15 | Electrocardiogram Report ---
Test Reason : Blood Pressure : */* mmHG Vent. Rate : 71 BPM Atrial Rate : 71 BPM P-R Int : 138 ms QRS Dur : 166 ms QT Int : 466 ms P-R-T Axes : * 100 -14 degrees QTcB Int : 506 ms AV dual-paced rhythm Abnormal ECG When compared with ECG of 30-Sep-2023 12:23, Vent. rate has decreased by 7 bpm Confirmed by Magali Lopez (Thelma) on 06/21/2024 9:35:47 AM Referred By: REFERRED SELF Confirmed By: Magali Lopez
--- NOTE | 2024-06-21 12:33 | XRay Report ---
SINGLE VIEW CHEST CLINICAL HISTORY: Chest tube and pneumothorax. FINDINGS: 2 AP, portable, upright chest radiographs are compared to chest x-ray performed earlier the same day 06/21/2024 and correlated with chest CT dated 06/20/2024. A 2-lead cardiac pacemaker is uncha nged in position. The heart is enlarged noting atherosclerotic calcification of the thoracic aorta. T he pulmonary vasculature is noncongested. Emphysema and chronic interstitial thickening is similar to previous. A right-sided chest tube has been pulled back. The tip is located just deep to the pleura. There is overlying subcutaneous emphysema. The right-sided pneumothorax has continued to decrease in size from previous. There is a small residual apical pneumothorax with approximately 1 cm of pleural separation. There is improved aeration of the right upper lobe. The trachea is midline. The left giacomo g appears clear. No large pleural effusion is seen. No left-sided pneumothorax is identified. The ske letal structures are osteopenic. The bony thorax is grossly intact. Degenerative change is noted in t he shoulders and spine. IMPRESSION: 1. A right-sided chest tube has been pulled back as detailed above. The tip is located just deep to t he pleura. 2. Small residual right apical pneumothorax. This has continued to decrease in size from previous. 3. Continued improvement in aeration of the right upper lobe. 4. Cardiomegaly and cardiac pacemaker without radiographic evidence of congestive failure. 5. Emphysema. ACT 112: Negative or not required by law. Electronically signed by: Jay Mayes M.D. 06/21/2024 12:30 PM
--- NOTE | 2024-06-21 13:04 | Pulmonary Consultation ---
Date of Consultation June 21, 2024 Assessment & Plan (1) Secondary spontaneous pneumothorax: Will clamp the chest tube at this time as it seems to be largely dislodged from the pleural space. Follow-up chest x-ray in 2 hours. Patient will need definitive management with probable VATS pleurodesis by thoracic surgery as an outpatient due to high risk of recurrence given his underlying emphysema. (2) Tobacco use: Patient with baseline COPD. Tobacco cessation strongly encouraged. Patient being treated for COPD exacerbation by primary service. I would not treat for greater than 7 days with prednisone. He is not currently wheezing, but not unreasonable to continue with prednisone course at this time due to pneumothorax and cough. Plan Thank you for the consult. Will continue to follow with you. History of Present Illness Reason for Consultation: Secondary pneumothorax Attending Physician: Darrell Moya MD History of Present Illness 74-year-old male with a history of active tobacco abuse and COPD who presented for acute onset of shortness of breath, cough and chest pain. On arrival to the ER patient had a large right-sided pneumothorax. A small caliber chest tube was placed into the fifth intercostal space by the ER with improvement of the pneumothorax. When I evaluated the patient, he had a Heimlich valve attached to his chest tube and the chest tube was attached to wall suction but suction was not on. He denies any significant shortness of breath at present but does endorse some mild pain around the chest tube insertion site. I ordered an additional chest x-ray which showed that the apical pneumothorax was very tiny at this time. The right side chest tube was barely in the pleural space and there is subcutaneous air noted. We switched over the patient to a Wendy waterseal system. Patient is currently comfortable and denies any significant shortness of breath or cough. He did have a chest CTA yesterday as well which revealed a large pneumothorax. I reviewed his prior low-dose CT chest from 05/26/2022 which not reveal any significant blows. He does have some mild to moderate centrilobular emphysema predominantly in the upper lobes. Allergies Allergy/AdvReac Type Severity Reaction Status Date / Time bee venom protein (honey bee) Allergy Unknown localized Verified 06/04/24 08:58 swelling Penicillins Allergy Unknown rash Verified 06/04/24 08:58 tetracycline AdvReac Unknown STAINS Verified 06/04/24 08:58 TEETH Poison Tiffany Extract/Poison Allergy Unknown rash Uncoded 06/04/24 08:58 [place] Extra Home Medications Medication Instructions Recorded Confirmed Type atorvastatin 40 mg tablet 40 mg PO PM 06/03/19 06/21/24 History celecoxib 100 mg capsule (Celebrex) 100 mg PO PM 06/03/19 06/21/24 History dutasteride 0.5 mg capsule 0.5 mg PO DAILY 06/03/19 06/21/24 History gabapentin 300 mg capsule 300 mg PO BID 06/03/19 06/21/24 History (Neurontin) magnesium oxide 400 mg PO PM 06/03/19 06/21/24 History potassium chloride 20 mEq 20 meq PO PM 06/03/19 06/21/24 History tablet,extended release(part/cryst) (Klor-Con M) tapentadol 50 mg tablet,extended 50 mg PO BID 06/03/19 06/21/24 History release,12 hr (Nucynta ER) famotidine 40 mg tablet 40 mg PO BID 06/30/21 06/21/24 History ascorbic acid (vitamin C) 1,000 mg 1 g PO DAILY 07/05/22 06/21/24 History tablet cholecalciferol (vitamin D3) 25 25 mcg PO PM 07/05/22 06/21/24 History mcg (1,000 unit) capsule coenzyme Q10 100 mg capsule 100 mg PO DAILY 07/05/22 06/21/24 History epinephrine 0.3 mg/0.3 mL 1 ml subcut DAILY PRN Anaphylaxis 07/05/22 06/21/24 History injection, auto-injector metoprolol succinate 25 mg 25 mg PO BID #60 tabs 07/05/22 06/21/24 Rx tablet,extended release 24 hr vitamin B complex 1 cap PO PM 07/05/22 06/21/24 History amiodarone 200 mg tablet 200 mg PO DAILY 01/17/23 06/21/24 History albuterol sulfate 90 mcg/actuation 2 puff inhalation QID PRN Wheezing 09/14/23 06/21/24 Rx aerosol inhaler (Proventil HFA) #8.5 grams calcium carbonate 1,000 mg PO HS 09/30/23 06/21/24 History fluticasone fur. 100 mcg-umeclid 2 inh inhalation DAILY 09/30/23 06/21/24 History 62.5 mcg-vilant 25 mcg inhalat.powder (Trelegy Ellipta) sodium chloride, sodium See Rx Instructions .Route 12/28/23 06/21/24 Rx bicarb-nasal rinse squeeze bottle .COMPLEX #50 ea with packet (Neilmed Sinus Rinse Complete with packet) Flutter Valve #1 ea 02/05/24 06/21/24 Rx nebulizer accessories #1 ea 02/05/24 06/21/24 Rx nebulizer and compressor #1 ea 02/05/24 06/21/24 Rx sodium chloride 7 % for 4 ml inhalation BID #240 mL 02/05/24 06/21/24 Rx nebulization dextromethorphan-guaifenesin 30 1 tab PO Q12H 06/04/24 06/21/24 History mg-600 mg tablet extended [id number] hr (Mucinex DM) ferrous sulfate 325 mg (65 mg 325 mg PO DAILY 06/04/24 06/21/24 History iron) tablet (FeroSul) loratadine 10 mg tablet (Allergy 10 mg PO DAILY 06/04/24 06/21/24 History Relief (loratadine)) Patient History Medical History Tobacco use Pacemaker Sick sinus syndrome Snoring Witnessed apneic spells Urachal cyst Chronic low back pain Lumbar disc disease Insomnia Hyperlipidemia Hypertension Atrial fibrillation BPH (benign prostatic hyperplasia) Surgical History S/P tonsillectomy H/O arthroscopic knee surgery S/P bronchoscopy S/P lumbar spinal arthrodesis Family History Other Coronary heart disease Diabetes Hypertension Prostate cancer Social History Smoking Status: Never smoker Tobacco Type: Cigarettes Cigarettes Per Day: 10; Second Hand Exposure: No; Do You Dip or Chew Tobacco: No; Hx Alcohol Use: No Hx Substance Use: No Preferred Language: Colombian Communication Ability: Effective Hris Manager Required: No Beliefs That Will Affect Care: None marital status: Current Living Situation: Spouse and Family current occupational status: retired Other Information That Helps Us Care for You: No Feels Safe at Home: Yes Safety Concerns: Feels Safe At This Time Assistive Devices: Glasses Review of Systems Review of Systems: All systems reviewed & are unremarkable except as noted in HPI & below Physical Exam Physical Exam: Constitutional: Patient appears to be of their stated age. Patient is in no apparent distress. Patient is well-developed. Eyes: Pupils are equal round and reactive to light. Conjunctivae are normal. Anicteric sclera. Ears nose, mouth and throat: Mallampati class 2. Normal posterior oropharynx. Uvula is midline. Neck: Trachea is midline. Visual inspection is normal. Respiratory: Clear to auscultation bilaterally. No use of accessory muscles. No significant clubbing noted. Cardiovascular: Regular rate and rhythm. No murmurs. No edema. Gastrointestinal: Normal bowel sounds, soft, nontender and nondistended. No hepatosplenomegaly noted. Musculoskeletal: No cyanosis. Patient is able to move all extremities. Strength is 5 out of 5 in the upper and lower extremities. Skin: No rashes, warm dry and intact. Neurologic: No obvious focal neurological deficits seen. Psychiatric: Alert and oriented x3 with a euthymic affect. Results & Data Results & Data Vital Signs (Past 12 Hours) Vital Signs Temp Pulse Pulse Resp BP BP Pulse Ox 06/21/24 12:20 37.1 C 70 23 104/53 L 94 06/21/24 07:04 70 06/21/24 05:03 71 20 115/63 97 06/21/24 03:39 70 22 116/64 96 06/21/24 03:00 70 18 116/64 97 06/21/24 02:30 70 24 95 06/21/24 01:22 06/21/24 01:22 70 18 140/72 97 06/21/24 01:20 06/21/24 01:20 70 18 127/69 97 Pulse Ox O2 Del Method O2 Del Method O2 Flow Rate O2 Flow Rate 06/21/24 12:20 Room Air 06/21/24 07:04 06/21/24 05:03 Nasal Cannula 3 06/21/24 03:39 Nasal Cannula 3 06/21/24 03:00 Nasal Cannula 3 06/21/24 02:30 Nasal Cannula 3 06/21/24 01:22 Nasal Cannula 4 06/21/24 01:22 Nasal Cannula 4 06/21/24 01:20 97 Nasal Cannula 4 06/21/24 01:20 Nasal Cannula 4 PG Care Time/CCT Total # of Minutes Spent Total Time Spent with Patient: Total time spent is greater than 50% in coordination of care (as documented) at patient's floor/unit and/or counseling patient: Coding Level of Care Code 65008 INT INP/OBS CARE 3/75MIN Diagnoses Secondary spontaneous pneumothorax J93.12 Tobacco use Z72.0
[2024-06-21] MEDS: DOCUSATE SODIUM/SENNA 50/8.6MG TAB PO SCH (13:38)
[2024-06-21] MEDS: guaiFENesin 600 MG TABCR PO SCH (13:38)
[2024-06-21] MEDS: ACETAMINOPHEN 325 MG TAB PO PRN (13:41)
[2024-06-21] MEDS ORDERED: LEVALBUTEROL 1.25 MG/3 ML NEB NEB PRN (13:44)
[2024-06-21] MEDS ORDERED: IPRATROPIUM BROMIDE NEB SOLN 0.02% 0.5MG/2.5ML VIAL INH PRN (13:45)
[2024-06-21] MEDS ORDERED: SODIUM CHLOR 7% 4 ML NEB INH PRN (13:46)
--- NOTE | 2024-06-21 14:02 | Hospitalist Progress Note ---
Date of Service June 21, 2024 Assessment & Plan (1) Acute hypoxemic respiratory failure: (2) Pneumothorax, right: Plan Patient presented with shortness of breath on admission Oxygen saturation of 70s on arrival Chest x-ray showed large right-sided pneumothorax with atelectasis of right upper lung CT chest showed large right pneumothorax estimated at 70 to 80%. Status post chest tube placement in the ED Last chest x-ray shows improvement in the pneumothorax. Patient's hypoxia resolved Management of chest tube as per pulmonology Elevated troponin in setting of pneumothorax Likely demand ischemia History of hypertrophic cardiomyopathy High sensitive troponin elevated at 150 on admission; up trended to 839 Echocardiogram shows EF of greater than 70% with severe asymmetric LVH. Resting LV outflow gradient is 31 mmHg. Cardiology consulted; recommended to trend troponin. No indication for heparin at this time. SSS status post PPM - continue tele monitor HOCM hypertension, stable hyperlipidemia, on statin Rx prediabetes, hemoglobin A1c of 5.02 October 2023 chronic anemia, hemoglobin at the baseline ongoing tobacco use Full code DVT prophylaxis Lovenox Please note the above document was generated using voice recognition software. It may contain grammatical, syntax or spelling errors. Any formal questions or concerns about the content, text or information contained within the body of this dictation should be directly addressed to the provider for clarification Admission and Anticipated Discharge Date Admission Date: June 21, 2024 Subjective Patient seen and examined at bedside He is comfortable; not in distress Chest tube in place; saturating well on room air Review of Systems Review of Systems: All systems reviewed & are unremarkable except as noted in Subjective Physical Exam Physical Exam: GENERAL: Comfortable, pleasant, no respiratory distress SKIN: Pallor, warm HEENT: Pale palpebral conjunctivae, no ptosis, dry buccal mucosa NECK : Supple, no tenderness CHEST : right chest wall catheter. Decreased breath sound at bases HEART : RRR, no obvious murmurs ABDOMEN: no distention, nontender EXTREMITIES : No LE swelling/tenderness, no other conspicuous deformities noted NEUROLOGIC : Coherent, no facial asymmetry, no other gross focality Results & Data Results & Data Vital Signs (Past 12 Hours) Vital Signs Temp Pulse Pulse Resp BP BP Pulse Ox 06/21/24 13:51 70 06/21/24 12:20 37.1 C 70 23 104/53 L 94 06/21/24 07:04 70 06/21/24 05:03 71 20 115/63 97 06/21/24 03:39 70 22 116/64 96 06/21/24 03:00 70 18 116/64 97 06/21/24 02:30 70 24 95 O2 Del Method O2 Flow Rate 06/21/24 13:51 06/21/24 12:20 Room Air 06/21/24 07:04 06/21/24 05:03 Nasal Cannula 3 06/21/24 03:39 Nasal Cannula 3 06/21/24 03:00 Nasal Cannula 3 06/21/24 02:30 Nasal Cannula 3
[2024-06-21] MEDS: MAGNESIUM OXIDE 400 MG TAB PO SCH (16:31)
[2024-06-21] MEDS: VITAMIN B COMPLEX TAB PO SCH (16:32)
[2024-06-21] MEDS: POTASSIUM CHLORIDE CRTAB 20 MEQ TABCR PO SCH (16:32)
--- NOTE | 2024-06-21 17:45 | XRay Report ---
SINGLE VIEW CHEST CLINICAL HISTORY: Chest tube and pneumothorax. FINDINGS: An AP, portable, upright chest radiograph is compared to chest x-rays performed earlier the same day 06/21/2024 and correlated with chest CT dated 06/20/2024. A 2-lead cardiac pacemaker is uncha nged in position. The heart is enlarged noting atherosclerotic calcification of the thoracic aorta. T he pulmonary vasculature is noncongested. Emphysema and chronic interstitial thickening is similar to previous. A right-sided chest tube is unchanged in position. The tip is located just deep to the ple ura. There is overlying subcutaneous emphysema. There is a small residual right apical pneumothorax w ith approximately 1 cm of pleural separation. This is unchanged from previous. The trachea is midline . The left lung appears clear. No airspace consolidation or large pleural effusion is identified. No left-sided pneumothorax is identified. The skeletal structures are osteopenic. The bony thorax is [place] ssly intact. Degenerative change is noted in the shoulders and spine. IMPRESSION: 1. A right-sided chest tube is unchanged in position. The tip is located just deep to the pleura. 2. A small residual right apical pneumothorax has not significantly changed. 3. No airspace consolidation or large pleural effusion is identified. 4. Cardiomegaly and cardiac pacemaker without radiographic evidence of congestive failure. 5. Emphysema. ACT 112: Negative or not required by law. Electronically signed by: Jay Mayes M.D. 06/21/2024 5:42 PM
[2024-06-21] MEDS: ATORVASTATIN 40 MG TAB PO SCH (21:27)
[2024-06-21] MEDS: diphenhydrAMINE Capsule 25 MG CAP PO PRN (21:42)
[2024-06-22 06:46] LABS: Basophils # (auto) 0.03 K/uL (0.00-0.20); Basophils % (auto) 0.3 %; Eosinophils # (auto) 0.02 K/uL (0.00-0.50); Eosinophils % (auto) 0.2 %; Hematocrit (blood only) 32.7 % (42.0-52.0); Hemoglobin 11.2 g/dl (14.0-18.0); Immature Granulocytes # (auto) 0.03 K/uL (0.01-0.20); Immature Granulocytes % (auto) 0.3 %; Lymphocytes # (auto) 1.29 K/uL (1.20-3.40); Lymphocytes % (auto) 11.3 %; Mean Corpuscular Hemoglobin 35.8 pg (25.0-34.0); Mean Corpuscular Hgb Conc 34.3 g/dL (32.0-36.0); Mean Corpuscular Volume 104.5 fL (80.0-100.0); Monocytes # (auto) 1.47 K/uL (0.11-0.59); Monocytes % (auto) 12.9 %; Neutrophils # (auto) 8.53 K/uL (1.40-6.50); Platelet Count 196 K/uL (130-400); RDW Coefficient of Variation 16.1 % (11.5-14.5); RDW Standard Deviation 61.2 fL (36.4-46.3); Red Blood Count 3.13 M/uL (4.70-6.10); White Blood Count 11.37 K/ul (4.8-10.8)
[2024-06-22 07:08] LABS: BUN Creatinine Ratio 30.2 (10-20); Calcium 8.9 mg/dl (8.6-10.3); Creatinine Clr Calc Pharmacy 56.6 ml/min; Est GFR (African American) 79.7 ml/min; Est GFR (Non-African American) 68.8 ml/min; Potassium 4.3 mmol/L (3.5-5.1)
--- NOTE | 2024-06-22 09:07 | XRay Report ---
SINGLE VIEW CHEST CLINICAL HISTORY: Chest tube and pneumothorax. FINDINGS: 2 AP, portable, upright chest radiographs are compared to chest x-rays dated 06/21/2024 and correlated with chest CT dated 06/20/2024. A 2-lead cardiac pacemaker is unchanged in position. The he art is enlarged noting atherosclerotic calcification of the thoracic aorta. The pulmonary vasculature is noncongested. Emphysema and chronic interstitial thickening is similar to previous. The right-gurpreet ed chest tube has been pulled back and is now located within the chest wall. There is surrounding sub cutaneous emphysema. The right-sided pneumothorax has significantly increased in size from yesterday. This is now moderate in size with approximately 5 cm apical pleural separation. The trachea is midli ne. The left lung appears clear. No large pleural effusion is seen. No left-sided pneumothorax is perla ntified. The skeletal structures are osteopenic. The bony thorax is grossly intact. Degenerative brown ge is noted in the shoulders and spine. IMPRESSION: 1. The right-sided chest tube has been pulled back with the tip now located outside the pleural space within the chest wall. 2. Moderate right-sided pneumothorax. This has significantly increased in size from previous. 3. Cardiomegaly and cardiac pacemaker without radiographic evidence of congestive failure. 4. No airspace consolidation or large pleural effusion is identified. 5. Emphysema. ACT 112: Negative or not required by law. Electronically signed by: Jay Mayes M.D. 06/22/2024 9:06 AM
[2024-06-22] MEDS: MoRPHine SULFATE 2 MG/ML CARP IV PRN (09:28)
--- NOTE | 2024-06-22 09:58 | Procedure Note ---
Procedure Note Date of Service June 22, 2024 PIGTAIL CATHETER PLACEMENT NOTE: Procedure: Pigtail Catheter Chest Tube Placement Indication: Large right apical pneumothorax Anesthesia: 5 mL lidocaine 1% Written consent was obtained and placed on the chart. Timeout was done prior to the procedure. Prior to procedure, chest x-ray films were reviewed by myself and demonstrated a large right apical pneumothorax. A time-out was completed verifying correct patient, procedure, site, positioning, and implant(s) or special equipment if applicable. Utilizing bedside ultrasound, chest wall was evaluated for location for optimal chest tube placement. Location between the third and fourth ribs were marked on the skin using gentle pressure. The right anterior chest wall was prepped with chlorhexidine and draped in the typical sterile fashion. 5 mL of 1% Lidocaine without epinephrine was used to anesthetize the skin down to the dorsal surface of the fourth rib. Air return confirmed entry into the pleural space. Lidocaine was injected into the pleural space for increased anesthetization. Introducer needle on syringe was inserted in perpendicular fashion taking care to ride just above the dorsal surface of the third rib. Entry into the pleural space was heralded by air return into the syringe while under gentle aspiration. Guide wire was advanced into the pleural space without resistance and the introducer needle was subsequently removed. Scalpel was used to make small incision of the superficial tissue, parallel to the direction of the rib anatomy. Dilator was advanced uneventfully over the guide wire into the pleural space. 14 Thai Pigtail Catheter was inserted into the pleural space. Inner introducer and guide wire were removed. Drain was immediately connected to pre-prepared EUN pleur-evac system. Pigtail was sutured securely in place with 2 anchoring sutures on the lateral sides and sterile dressing was applied. Chest tube was placed to -20 cmH2O suction. Patient tolerated procedure well. Blood Loss: Minimal Complications: None Postprocedure chest x-ray is pending. [facility] Procedure Codes (Charges) Pulmonary/Thoracic Procedure 1: Pulmonary and Thoracic: 60519 Tube thoracostomy Coding CPT Codes Pulmonary/Thoracic - Pulmonary and Thoracic: 74106 Tube thoracostomy ([id number]) Additional Codes Date of Service (PG.SURGERY)
--- NOTE | 2024-06-22 10:07 | XRay Report ---
SINGLE VIEW CHEST CLINICAL HISTORY: Chest tube and pneumothorax. FINDINGS: 2 AP, portable, upright chest radiographs are compared to chest x-rays performed earlier th e same day 06/13/2024 and correlated with chest CT dated 06/20/2024. A 2-lead cardiac pacemaker is unch anged in position. The heart is enlarged noting atherosclerotic calcification of the thoracic aorta. The pulmonary vasculature is noncongested. Emphysema and chronic interstitial thickening is similar t o previous. A new chest tube has been placed, with the tip coiled at the right apex. There is increas ing subcutaneous emphysema throughout the right chest wall. The right-sided pneumothorax has almost c ompletely resolved. There is only trace residual pneumothorax identified. The trachea is midline. The left lung appears clear. No large pleural effusion is seen. No left-sided pneumothorax is identified . The skeletal structures are osteopenic. The bony thorax is grossly intact. Degenerative change is n oted in the shoulders and spine. IMPRESSION: 1. A new right-sided chest tube has been placed as above. There is only trace residual right-sided pn eumothorax. 2. Cardiomegaly and cardiac pacemaker without radiographic evidence of congestive failure. 3. No airspace consolidation or large pleural effusion is identified. 4. Emphysema. ACT 112: Negative or not required by law. Electronically signed by: Jay Mayes M.D. 06/22/2024 10:05 AM
--- NOTE | 2024-06-22 10:36 | Cardiology Progress Note ---
Date of Service June 22, 2024 Assessment & Plan (1) Pneumothorax, right: (2) Acute exacerbation of chronic obstructive pulmonary disease: (3) Elevated troponin: (4) Hypertrophic cardiomyopathy: (5) Paroxysmal atrial fibrillation: Plan 74-year-old male presents with large right-sided pneumothorax status post chest tube placement. Significant hypoxia documented. Elevated troponin secondary to demand ischemia, type II event, due to COPD exacerbation and pneumothorax. Resting 2D transthoracic echocardiogram Demonstrates hypertrophic cardiomyopathy, preserved LV systolic function, no regional wall motion abnormality. ECG nondiagnostic due to AV pacing. History of atrial fibrillation monitored by electrophysiology. He is not chronically anticoagulated. AV paced rhythm on admission. AF burden <1% per pacemaker interrogation. [id number] 2 (age, HTN). 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 Amiodarone initiated for frequent PVCs August 2022. Management of pneumothorax/chest tube as per pulmonary medicine. No further inpatient cardiac testing or intervention recommended at this time. Cardiology will sign off. Please call with additional concerns/questions. Admission and Anticipated Discharge Date Admission Date: June 21, 2024 Subjective 74-year-old male seen and examined at the bedside. Notes mild discomfort associated with chest tube. Telemetry reveals AV paced rhythm. Echocardiogram demonstrating stable findings without regional wall motion abnormality. Patient offers no new concerns/complaints. Review of Systems Review of Systems: All systems reviewed & are unremarkable except as noted in Subjective Physical Exam Constitutional: well nourished; no acute distress Respiratory: no respiratory distress and no labored breathing Auscultation: + diminished lung sounds (right side); no crackles, no rales, no rhonchi and no wheezes Cardiovascular: Rate/Rhythm: regular rate and regular rhythm Heart Sounds: normal S1 and normal S2; no murmur Vessels: radial pulses present; no JVD and no carotid bruit Extremities: no edema Gastrointestinal (Abdomen): Inspection/Auscultation: normal bowel sounds; abdomen not distended Percussion/Palpation: abdomen nontender, no guarding, abdomen not rigid and + abdomen not soft Neurologic: CN's II-XI intact bilaterally and moves all extremities; no focal motor deficits Results & Data Vital Signs (Past 12 Hours) Vital Signs Temp Pulse Pulse Pulse Resp BP BP 06/22/24 07:04 36.6 C 72 31 H 148/69 H 09/29/24 07:00 06/22/24 03:20 70 17 113/57 L 06/21/24 23:23 37.1 C 72 16 103/56 L 06/21/24 23:00 70 Pulse Ox O2 Del Method 06/22/24 07:04 94 Room Air 06/22/24 07:00 Room Air 06/22/24 03:20 92 Room Air 06/21/24 23:23 92 Room Air 06/21/24 23:00 Laboratory Results Cardiac Enzymes 06/21/24 06/21/24 Range/Units 14:40 20:45 Troponin I High Sens 831.4 H* 710.2 H* (0-20) pg/ml CBC 06/22/24 Range/Units 05:57 WBC 11.37 H (4.8-10.8) K/ul RBC 3.13 L (4.70-6.10) M/uL Hgb 11.2 L (14.0-18.0) g/dl Hct 32.7 L (42.0-52.0) % Plt Count 196 (130-400) K/uL Neut # (Auto) 8.53 H (1.40-6.50) K/uL Lymph # (Auto) 1.29 (1.20-3.40) K/uL [place] # (Auto) 1.47 H (0.11-0.59) K/uL Eos # (Auto) 0.02 (0.00-0.50) K/uL Baso # (Auto) 0.03 (0.00-0.20) K/uL Comprehensive Metabolic Panel 06/22/24 Range/Units 05:57 Sodium 138 (136-145) mmol/L Potassium 4.3 (3.5-5.1) mmol/L Chloride 106 (98-107) mmol/L Carbon Dioxide 27 (21-32) mmol/L BUN 32 H (6-23) mg/dl Creatinine 1.06 (0.6-1.4) mg/dl Glucose 107 H (70-99(Fasting)) mg/dl Calcium 8.9 (8.6-10.3) mg/dl Intake and Output 06/21/24 06/22/24 06/22/24 22:59 06:59 14:59 Intake Total 240 / 1350 400 / 1350 Output Total 400 / 1900 1500 / 1900 Balance -160 / -550 -1100 / -550 Intake: Oral 240 / 640 400 / 640 Output: Urine 400 / 1900 1500 / 1900 Other: Weight 65.4 kg Weight Measurement Method Built in [facility]
--- NOTE | 2024-06-22 10:38 | Hospitalist Progress Note ---
Date of Service June 22, 2024 Assessment & Plan (1) Acute hypoxemic respiratory failure: (2) Pneumothorax, right: Plan Patient presented with shortness of breath on admission Oxygen saturation of 70s on arrival Chest x-ray showed large right-sided pneumothorax with atelectasis of right upper lung CT chest showed large right pneumothorax estimated at 70 to 80%. Status post chest tube placement in the ED Chest x-ray after chest tube placement in the ED showed improvement in pneumothorax. However in the morning of 06/22: Patient reported that he had a coughing episode in the morning. He then he started to become short of breath. He was evaluated at bedside; he was in respiratory distress; was using his accessory muscles for breathing. Respiratory rate was greater than 25. Stat chest x-ray was obtained and reviewed personally; there was significant increase in right-sided pneumothorax. Updated pulmonology; recommended the patient to be placed on nonrebreather. A new chest tube was placed by pulmonology. Elevated troponin in setting of pneumothorax Likely demand ischemia History of hypertrophic cardiomyopathy High sensitive troponin elevated at 150 on admission; up trended to 839 and downtrended Echocardiogram shows EF of greater than 70% with severe asymmetric LVH. Resting LV outflow gradient is 31 mmHg. Cardiology consulted; recommended to trend troponin. No indication for heparin at this time. SSS status post PPM - continue tele monitor HOCM hypertension, stable hyperlipidemia, on statin Rx prediabetes, hemoglobin A1c of 5.02 October 2023 chronic anemia, hemoglobin at the baseline ongoing tobacco use Full code DVT prophylaxis Lovenox Time critical spent evaluating patient, direct bedside care, chart review, placing orders, interpretation of diagnostic studies, discussion with consultants, patient, and family members, as well as other required patient management activities is 40 minutes Please note the above document was generated using voice recognition software. It may contain grammatical, syntax or spelling errors. Any formal questions or concerns about the content, text or information contained within the body of this dictation should be directly addressed to the provider for clarification Admission and Anticipated Discharge Date Admission Date: June 21, 2024 Subjective Patient reported that he had a coughing episode in the morning. He then he started to become short of breath. He was evaluated at bedside; he was in respiratory distress; was using his accessory muscles for breathing. Respiratory rate was greater than 25. Stat chest x-ray was obtained and reviewed personally; there was significant increase in right-sided pneumothorax. Updated pulmonology; recommended the patient to be placed on nonrebreather. A new chest tube was placed by pulmonology. Review of Systems Review of Systems: All systems reviewed & are unremarkable except as noted in Subjective Physical Exam Physical Exam: GENERAL: Appears uncomfortable; in significant respiratory distress SKIN: Pallor, warm HEENT: Pale palpebral conjunctivae, no ptosis, dry buccal mucosa NECK : Supple, no tenderness CHEST : Decreased breath sounds on right lungs. Vesicular breath sounds on left lung HEART : RRR, no obvious murmurs ABDOMEN: no distention, nontender EXTREMITIES : No LE swelling/tenderness, no other conspicuous deformities noted NEUROLOGIC : Coherent, no facial asymmetry, no other gross focality Results & Data Results & Data Vital Signs (Past 12 Hours) Vital Signs Temp Pulse Pulse Pulse Resp BP BP 06/22/24 07:04 36.6 C 72 31 H 148/69 H 06/22/24 07:00 06/22/24 03:20 70 17 113/57 L 06/21/24 23:23 37.1 C 72 16 103/56 L 06/21/24 23:00 70 Pulse Ox O2 Del Method 06/22/24 07:04 94 Room Air 06/22/24 07:00 Room Air 06/22/24 03:20 92 Room Air 06/21/24 23:23 92 Room Air 06/21/24 23:00
--- NOTE | 2024-06-22 11:44 | Pulmonology Progress Note ---
Date of Service June 22, 2024 Assessment & Plan (1) Secondary spontaneous pneumothorax: Plan: Right lateral chest tube placed by the ER has been dislodged. Patient has a large right apical pneumothorax which was treated with a pigtail catheter placed at the apex by me. Pneumothorax appears to be largely resolved. Will continue chest tube to -10 suction for today. Symptomatically he is significantly improved. Pain control per primary team. Will likely need thoracic surgery evaluation perhaps even during this hospitalization and transfer to a tertiary center if he continues to have persistent pneumothorax on waterseal or clamping trials. (2) Tobacco use: Plan: Patient with baseline COPD. Tobacco cessation strongly encouraged. Patient being treated for COPD exacerbation by primary service. I would not treat for greater than 7 days with prednisone. He is not currently wheezing, but not unreasonable to continue with prednisone course at this time due to pneumothorax and cough. Plan Thank you for the consult. Will continue to follow with you. Admission and Anticipated Discharge Date Admission Date: June 21, 2024 Subjective Unfortunately, the chest tube placed by the ER was dislodged and the patient had a large right apical pneumothorax with worsening shortness of breath and chest discomfort. I urgently placed an apical 14 [place] pigtail catheter with resolution of the pneumothorax. Review of Systems Review of Systems: All systems reviewed & are unremarkable except as noted in HPI & below Physical Exam Physical Exam: Constitutional: Patient appears to be of their stated age. Patient very anxious and in severe distress. Eyes: Pupils are equal round and reactive to light. Conjunctivae are normal. Anicteric sclera. Ears nose, mouth and throat: Mallampati class 2. Normal posterior oropharynx. Uvula is midline. Neck: Trachea is midline. Visual inspection is normal. Respiratory: Diminished lung sounds on the right. Tachypneic. Prolonged phase of exhalation. Cardiovascular: Regular rate and rhythm. No murmurs. No edema. Gastrointestinal: Normal bowel sounds, soft, nontender and nondistended. No hepatosplenomegaly noted. Musculoskeletal: No cyanosis. Patient is able to move all extremities. Strength is 5 out of 5 in the upper and lower extremities. Skin: No rashes, warm dry and intact. Neurologic: No obvious focal neurological deficits seen. Psychiatric: Anxious appearing. Alert and oriented x 3. Results & Data Results & Data Vital Signs (Past 12 Hours) Vital Signs Temp Pulse Pulse Resp BP Pulse Ox O2 Del Method 06/22/24 07:04 36.6 C 72 31 H 148/69 H 94 Room Air 06/22/24 07:00 Room Air 06/22/24 03:20 70 17 113/57 L 92 Room Air PG Care Time/CCT Total # of Minutes Spent Total Time Spent with Patient: Total time spent is greater than 50% in coordination of care (as documented) at patient's floor/unit and/or counseling patient: Coding Level of Care Code 91541 SUB INP/OBS CARE 2/35MIN Diagnoses Secondary spontaneous pneumothorax J93.12 Tobacco use Z72.0
[2024-06-22] MEDS: oxyCODONE HCL IR 5 MG TAB (IMMEDIATE RELEASE) PO PRN (12:01)
[2024-06-22] MEDS: MINOCYCLINE HCL 50 MG CAP PO SCH (15:16)
[2024-06-22] MEDS ORDERED: LORazepam 0.5 MG TAB PO PRN (21:19)
[2024-06-22 21:54] LABS: Magnesium 2.3 mg/dl (1.7-2.4)
[2024-06-23 06:38] LABS: Basophils # (auto) 0.04 K/uL (0.00-0.20); Basophils % (auto) 0.4 %; Eosinophils # (auto) 0.04 K/uL (0.00-0.50); Eosinophils % (auto) 0.4 %; Hematocrit (blood only) 33.4 % (42.0-52.0); Hemoglobin 11.1 g/dl (14.0-18.0); Immature Granulocytes # (auto) 0.05 K/uL (0.01-0.20); Immature Granulocytes % (auto) 0.6 %; Lymphocytes # (auto) 1.71 K/uL (1.20-3.40); Lymphocytes % (auto) 18.9 %; Mean Corpuscular Hemoglobin 35.4 pg (25.0-34.0); Mean Corpuscular Hgb Conc 33.2 g/dL (32.0-36.0); Mean Corpuscular Volume 106.4 fL (80.0-100.0); Mean Platelet Volume 10.4 fL (9.4-12.4); Monocytes # (auto) 1.29 K/uL (0.11-0.59); Monocytes % (auto) 14.3 %; Neutrophils # (auto) 5.92 K/uL (1.40-6.50); Neutrophils % (auto) 65.4 %; Platelet Count 190 K/uL (130-400); RDW Coefficient of Variation 16.3 % (11.5-14.5); RDW Standard Deviation 63.6 fL (36.4-46.3); Red Blood Count 3.14 M/uL (4.70-6.10); White Blood Count 9.05 K/ul (4.8-10.8)
[2024-06-23 06:57] LABS: BUN Creatinine Ratio 24.8 (10-20); Calcium 8.9 mg/dl (8.6-10.3); Creatinine Clr Calc Pharmacy 49.8 ml/min; Est GFR (African American) 67.9 ml/min; Est GFR (Non-African American) 58.6 ml/min; Potassium 4.5 mmol/L (3.5-5.1)
--- NOTE | 2024-06-23 07:40 | Pulmonology Progress Note ---
Date of Service June 23, 2024 Assessment & Plan (1) Secondary spontaneous pneumothorax: (2) Tobacco use: (3) Acinetobacter baumannii as the cause of diseases classified elsewhere: (4) COPD with emphysema: Plan CT chest 06/20/2024 personally reviewed: Centrilobular emphysema appreciated bilaterally Large right-sided pneumothorax with compressive atelectasis of the right upper lobe No significant mediastinal lymphadenopathy -- Spontaneous secondary pneumothorax S/p pigtail catheter placement 06/22/2024 --COPD with emphysema On Trelegy 100 at home On Anoro and Arnuity while in the hospital --Acinetobacter baumannii appreciated on the sputum culture 06/20/2024 Previous sputum cultures have been positive for stenotrophomonas maltophilia on multiple locations latest 1 being 12/13/2023 Continue with minocycline --Current smoker Importance of quitting explained to the patient in depth Plan: Chest x-ray from today does not show any pneumothorax on the right side No air leak appreciated at bedside Put the chest tube to waterseal. Repeat chest x-ray 1 PM today Avoid positive pressure ventilation including flutter valve right now Case was discussed with RN at bedside Please note the above document was generated using voice recognition software. It may contain grammatical, syntax or spelling errors.Any formal questions or concerns about the content, text or information contained within the body of this dictation should be directly addressed to the provider for clarification. Admission and Anticipated Discharge Date Admission Date: June 21, 2024 Subjective Patient seen and examined at bedside. 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 Did complain of some discomfort at the site of the chest tube He stated that he is able to bring up phlegm. No hemoptysis. Denies any headache, no nausea vomiting Fair appetite Review of Systems 2 Review of Systems: All systems reviewed & are unremarkable except as noted in Subjective Physical Exam 2 Physical Exam: Constitutional: No acute distress HEENT: EOMI, PERRLA Respiratory system: Decreased air entry bilaterally, no wheeze, no rhonchi, positive crackles bilaterally more on the right side CVS: S1-S2 positive, no murmurs or gallops Abdomen: Soft, nontender, nondistended, positive bowel sounds x4 Extremities: +2 pulses bilaterally radialis/ dorsalis pedis, no cyanosis, no edema Neuro: Awake alert oriented x3 Psych: Normal mood and affect G/U: No [place] Skin: no rashes, warm and dry Lymphatic: no cervical or axillary lymphadenopathy Results & Data Results & Data Vital Signs (Past 12 Hours) Vital Signs Temp Pulse Pulse Resp BP Pulse Ox O2 Del Method 06/23/24 03:35 36.6 C 86 17 106/63 97 Nasal Cannula 06/23/24 00:00 93 H 06/22/24 23:10 37.3 C 100 H 17 108/69 96 Nasal Cannula O2 Flow Rate 06/23/24 03:35 2 06/23/24 00:00 06/22/24 23:10 2 Laboratory Results 06/23/24 05:45 06/23/24 05:45 PG Care Time/CCT Total # of Minutes Spent Total Time Spent with Patient: Total time spent is greater than 50% in coordination of care (as documented) at patient's floor/unit and/or counseling patient: Coding Level of Care Code 04681 SUB INP/OBS CARE 3/50MIN Diagnoses Secondary spontaneous pneumothorax J93.12 Tobacco use Z72.0 Acinetobacter baumannii as the cause of diseases classified elsewhere B96.83 COPD with emphysema J43.9
--- NOTE | 2024-06-23 08:05 | XRay Report ---
XR chest 1V portable CLINICAL HISTORY: Follow up on pneumothorax TECHNIQUE: Single frontal radiograph of the chest was obtained. Comparison: Comparison is made to chest radiograph 06/22/2024 FINDINGS: Stable right chest tube. Pacemaker is unchanged. Calcified aortic knob is seen. The lungs are clear. Previously noted pneumothorax is not well seen. Multiple skin folds are seen. IMPRESSION: No significant pneumothorax is seen. Chest tube and pacemaker are unchanged. ACT 112: Negative or not required by law. Electronically signed by: Kanu Jaquez M.D. 06/23/2024 8:04 AM
--- NOTE | 2024-06-23 11:50 | Hospitalist Progress Note ---
Date of Service June 23, 2024 Assessment & Plan (1) Acute hypoxemic respiratory failure: (2) Pneumothorax, right: Plan Patient presented with shortness of breath on admission Oxygen saturation of 70s on arrival Chest x-ray showed large right-sided pneumothorax with atelectasis of right upper lung CT chest showed large right pneumothorax estimated at 70 to 80%. Status post chest tube placement in the ED Chest x-ray after chest tube placement in the ED showed improvement in pneumothorax. However in the morning of 06/22: Patient reported that he had a coughing episode in the morning. He then he started to become short of breath. He was evaluated at bedside; he was in respiratory distress; was using his accessory muscles for breathing. Respiratory rate was greater than 25. Stat chest x-ray was obtained and reviewed personally; there was significant increase in right-sided pneumothorax. A new chest tube was placed by pulmonology. Repeat chest x-ray showed resolution of pneumothorax Plan to remove chest tube and monitor. Repeat CXR today. Elevated troponin in setting of pneumothorax Likely demand ischemia History of hypertrophic cardiomyopathy High sensitive troponin elevated at 150 on admission; up trended to 839 and downtrended Echocardiogram shows EF of greater than 70% with severe asymmetric LVH. Resting LV outflow gradient is 31 mmHg. Cardiology consulted; no further cardiac work up needed inpatient SSS status post PPM - continue tele monitor HOCM hypertension, stable hyperlipidemia, on statin Rx prediabetes, hemoglobin A1c of 5.02 October 2023 chronic anemia, hemoglobin at the baseline ongoing tobacco use Full code DVT prophylaxis Lovenox Time spent evaluating patient, direct bedside care, chart review, placing orders, interpretation of diagnostic studies, discussion with consultants, patient, and family members, as well as other required patient management activities is 50 minutes Please note the above document was generated using voice recognition software. It may contain grammatical, syntax or spelling errors. Any formal questions or concerns about the content, text or information contained within the body of this dictation should be directly addressed to the provider for clarification Admission and Anticipated Discharge Date Admission Date: June 21, 2024 Subjective Patient seen and examined at bedside. Comfortable; not in distress. Denies fever, chills, chest pain, shortness of breath, abdominal pain or urinary symptoms. No significant overnight events Review of Systems Review of Systems: All systems reviewed & are unremarkable except as noted in Subjective Physical Exam Physical Exam: GENERAL: comfortable; not in distress. SKIN: Pallor, warm HEENT: Pale palpebral conjunctivae, no ptosis, dry buccal mucosa NECK : Supple, no tenderness CHEST : Bilateral vesicular breath sound HEART : RRR, no obvious murmurs ABDOMEN: no distention, nontender EXTREMITIES : No LE swelling/tenderness, no other conspicuous deformities noted NEUROLOGIC : Coherent, no facial asymmetry, no other gross focality Results & Data Results & Data Vital Signs (Past 12 Hours) Vital Signs Temp Pulse Pulse Resp BP BP Pulse Ox 06/23/24 11:45 72 06/23/24 10:26 36.3 C L 101 H 18 99/64 L 91 06/23/24 07:53 37.2 C 105 H 18 117/77 92 06/23/24 03:35 36.6 C 86 17 106/63 97 06/23/24 00:00 93 H O2 Del Method O2 Flow Rate 06/23/24 11:45 06/23/24 10:26 Room Air 06/23/24 07:53 Room Air 06/23/24 03:35 Nasal Cannula 2 06/23/24 00:00
--- NOTE | 2024-06-23 13:35 | XRay Report ---
XR chest 1V portable CLINICAL HISTORY: pneumothorax COMPARISON STUDY: Chest CT June 20, 2024 and chest radiograph performed earlier today. FINDINGS: Right apical pleural catheter remains in place. The right pneumothorax has significantly de creased in size. There is a trace residual right apical pneumothorax. Left subclavian pacer is in areli ce. There is cardiomegaly. Mild interstitial thickening is present. There may be minimal left upper l randee airspace opacity. Gas within the right chest wall is again noted. IMPRESSION: Right apical pleural catheter in place. Decrease in size of a now trace right pneumotho rax. ACT 112: Negative or not required by law. Electronically signed by: Aram Tucker M.D. 06/23/2024 1:34 PM
[2024-06-23] MEDS: METOPROLOL SUCC 25MG EXT REL TAB PO ONE (14:57)
--- NOTE | 2024-06-23 15:05 | Cardiology Progress Note ---
Date of Service June 23, 2024 Assessment & Plan (1) Paroxysmal atrial fibrillation: (2) Pneumothorax, right: (3) Acute exacerbation of chronic obstructive pulmonary disease: (4) Elevated troponin: (5) Hypertrophic cardiomyopathy: (6) PVC (premature ventricular contraction): Plan 74-year-old male presents with large right-sided pneumothorax status post chest tube placement. Significant hypoxia documented. Elevated troponin secondary to demand ischemia, type II event, due to COPD exacerbation and pneumothorax. Resting 2D transthoracic echocardiogram Demonstrates hypertrophic cardiomyopathy, preserved LV systolic function, no regional wall motion abnormality. ECG nondiagnostic due to AV pacing. History of atrial fibrillation monitored by electrophysiology. He is not chronically anticoagulated. AV paced rhythm on admission. AF burden <1% per pacemaker interrogation. [id number] 2 (age, HTN). 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 Amiodarone initiated for frequent PVCs August 2022. Management of pneumothorax/chest tube as per pulmonary medicine. 06/23/2024 Service requested to reevaluate patient after patient lapsed into atrial fibrillation last evening. Prior history of brief paroxysmal atrial fibrillation now sustained since 8 PM last evening rates modestly elevated and patient asymptomatic Issues addressed as follows 1. Paroxysmal atrial fibrillation with acute lapse less than 24 hours. Likely incited by multiple issues including acute hospital stressors of hypoxia pain and respiratory distress. [id number] score of 1 but with underlying hypertrophic cardiomyopathy: Discussed in detail with patient patient adamantly does not wish anticoagulation despite significant increase in risk of stroke. Relatively contraindicated at this time given presence of chest tube with short- term removal plans. Metoprolol succinate has been increased for rate control would continue 50 mg twice per day. Will increase amiodarone to 400 mg2 times daily Repeat EKG in a.m. Will readdress anticoagulation as course proceeds Admission and Anticipated Discharge Date Admission Date: June 21, 2024 Subjective Physician requested reassessment of patient Notably lapsed into atrial fibrillation approximately 8 PM last evening. Patient unaware of arrhythmia though rates have been running elevated. Heart rates 110 to 140 bpm No acute neurologic complaints. Current hospitalization for acute pneumothorax, spontaneous possible pneumonia. Chest tube still in place but possible plans for withdrawal Underlying issues as outlined hypertrophic cardiomyopathy with paroxysmal atrial fibrillation Review of Systems Review of Systems: All systems reviewed & are unremarkable except as noted in Subjective Physical Exam Constitutional: + thin; no acute distress Eyes: PERRL, conjunctivae normal, anicteric sclerae Neck: trachea midline, no thyromegaly Respiratory: + cough; no respiratory distress and no labored breathing Auscultation: + diminished lung sounds (right side); no crackles, no rales, no rhonchi and no wheezes Cardiovascular: Rate/Rhythm: + tachycardic and + irregularly irregular Heart Sounds: normal S1 and normal S2; no murmur Vessels: radial pulses present; no JVD and no carotid bruit Extremities: no edema Chest (Breasts): Chest: + pacemaker Gastrointestinal (Abdomen): Inspection/Auscultation: normal bowel sounds; abdomen not distended Percussion/Palpation: abdomen nontender, no guarding, abdomen not rigid and + abdomen not soft Neurologic: CN's II-XI intact bilaterally and moves all extremities; no focal motor deficits Results & Data Vital Signs (Past 12 Hours) Vital Signs Temp Pulse Pulse Resp BP BP Pulse Ox 06/23/24 11:45 72 06/23/24 10:26 36.3 C L 101 H 18 99/64 L 91 06/23/24 07:53 37.2 C 105 H 18 117/77 92 06/23/24 07:30 06/23/24 03:35 36.6 C 86 17 106/63 97 O2 Del Method O2 Flow Rate 06/23/24 11:45 06/23/24 10:26 Room Air 06/23/24 07:53 Room Air 06/23/24 07:30 Room Air 06/23/24 03:35 Nasal Cannula 2 Laboratory Results Laboratory Results - last 24 hr 06/22/24 06/23/24 05:57 05:45 WBC 9.05 RBC 3.14 L Hgb 11.1 L Hct 33.4 L MCV 106.4 H MCH 35.4 H MCHC 33.2 RDW Std Deviation 63.6 H RDW Coeff of Iva 16.3 H Plt Count 190 MPV 10.4 Immature Gran % (Auto) 0.6 Neut % (Auto) 65.4 Lymph % (Auto) 18.9 [place] % (Auto) 14.3 Eos % (Auto) 0.4 Baso % (Auto) 0.4 Neut # (Auto) 5.92 Lymph # (Auto) 1.71 [place] # (Auto) 1.29 H Eos # (Auto) 0.04 Baso # (Auto) 0.04 Immature Gran # (Auto) 0.05 Sodium 140 Potassium 4.5 Chloride 105 Carbon Dioxide 31 Anion Gap 4 BUN 30 H Creatinine 1.21 Est Cr Clr Drug Dosing 49.8 Est GFR ( Amer) 67.9 Est GFR (Non-Af Amer) 58.6 BUN/Creatinine Ratio 24.8 H Glucose 90 Calcium 8.9 Magnesium 2.3
--- NOTE | 2024-06-23 16:06 | Infectious Disease Consult ---
Date of Service June 23, 2024 Telehealth Information I performed this visit using a real-time telehealth connection between my location and the patients location ([facility]). After connecting through interactive tele-video, patient was identified by name and date of and/or wristband check.Patient (or authorized healthcare insurance representative) was informed that this was a telemedicine visit and it was being conducted confidentially over secure lines. My office door was closed and no one else was present in the room with me.Patient (or authorized healthcare insurance representative) provided consent to proceed with the visit, expressed an understanding of privacy and security of the telemedicine visit, and gave permission to have a hospital insurance representative in the room in order to assist with the visit and to conduct portions of the visit, as needed. I informed the patient (or authorized healthcare insurance representative) that I reviewed their record and presented the opportunity for them to ask any questions regarding the visit today. The patient agreed to participate. Assessment & Plan (1) Pneumonia due to Acinetobacter baumannii: (2) Pneumothorax: (3) Acute exacerbation of chronic obstructive pulmonary disease: Plan Please discontinue minocycline as it is usually used as a combination rather than single therapy and usually in extremely resistant strains of Acinetobacter. Please start on IV cefepime. Plan to treat for a total of 14 days. On discharge, step-down to oral Bactrim double-strength 2 tablets in the morning and 2 tablets in the evening to complete a course of treatment (10 mg/kg/day of TMP component divided in 2-3 equal doses). Thank you for consulting Infectious Disease. We will sign off for now. History of Present Illness History of Present Illness Mr. Villanueva is a 74-year-old man with medical history of sick sinus syndrome with pacemaker in place, CAD, HOCM, HTN, hyperlipidemia, prediabetes, COPD, BPH and chronic pain was admitted to [facility] on 06/21 because of generalized weakness and shortness of breath. He mentioned that he recently was on a vacation to keep good and around 3 days prior to presentation, he started feeling tired in association with mild cough with clear sputum and acute progressive shortness of breath on the day of presentation. On the day of presentation, he called EMS and was found to have oxygen saturation of 70%. On presentation to the emergency department, he was afebrile with no signs of hypoxia. Initial workup showed leukocytosis of 15 with ANC 11.6, VBG showed respiratory acidosis with pCO2 64, significantly elevated troponin of 150 which kept getting higher during the current admission reaching a peak of 839 several hours after admission. RVP panel was negative. CTA chest performed on admission showed a large right pneumothorax with sub segmental changes in the posterior aspect of the right upper lobe. Subsequently, he had a chest tube placed by the Pulmonary team with marked improvement in his pneumothorax. Sputum culture sent on 06/20 came back positive for Acinetobacter. Id team was consulted for further recommendations and to help guide antibiotic treatment. Allergies Allergy/AdvReac Type Severity Reaction Status Date / Time bee venom protein (honey bee) Allergy Unknown localized Verified 06/04/24 08:58 swelling Penicillins Allergy Unknown rash Verified 06/04/24 08:58 tetracycline AdvReac Unknown STAINS Verified 06/04/24 08:58 TEETH Poison Tiffany Extract/Poison Allergy Unknown rash Uncoded 06/04/24 08:58 [place] Extra Home Medications Medication Instructions Recorded Confirmed Type atorvastatin 40 mg tablet 40 mg PO PM 06/03/19 06/21/24 History celecoxib 100 mg capsule (Celebrex) 100 mg PO PM 06/03/19 06/21/24 History dutasteride 0.5 mg capsule 0.5 mg PO DAILY 06/03/19 06/21/24 History gabapentin 300 mg capsule 300 mg PO BID 06/03/19 06/21/24 History (Neurontin) magnesium oxide 400 mg PO PM 06/03/19 06/21/24 History potassium chloride 20 mEq 20 meq PO PM 06/03/19 06/21/24 History tablet,extended release(part/cryst) (Klor-Con M) tapentadol 50 mg tablet,extended 50 mg PO BID 06/03/19 06/21/24 History release,12 hr (Nucynta ER) famotidine 40 mg tablet 40 mg PO BID 06/30/21 06/21/24 History ascorbic acid (vitamin C) 1,000 mg 1 g PO DAILY 07/05/22 06/21/24 History tablet cholecalciferol (vitamin D3) 25 25 mcg PO PM 07/05/22 06/21/24 History mcg (1,000 unit) capsule coenzyme Q10 100 mg capsule 100 mg PO DAILY 07/05/22 06/21/24 History epinephrine 0.3 mg/0.3 mL 1 ml subcut DAILY PRN Anaphylaxis 07/05/22 06/21/24 History injection, auto-injector metoprolol succinate 25 mg 25 mg PO BID #60 tabs 07/05/22 06/21/24 Rx tablet,extended release 24 hr vitamin B complex 1 cap PO PM 07/05/22 06/21/24 History amiodarone 200 mg tablet 200 mg PO DAILY 01/17/23 06/21/24 History calcium carbonate 1,000 mg PO HS 09/30/23 06/21/24 History fluticasone fur. 100 mcg-umeclid 2 inh inhalation DAILY 09/30/23 06/21/24 History 62.5 mcg-vilant 25 mcg inhalat.powder (Trelegy Ellipta) sodium chloride, sodium See Rx Instructions .Route 12/28/23 06/21/24 Rx bicarb-nasal rinse squeeze bottle .COMPLEX #50 ea with packet (Glomera Sinus Rinse Complete with packet) Flutter Valve #1 ea 02/05/24 06/21/24 Rx nebulizer accessories #1 ea 02/05/24 06/21/24 Rx nebulizer and compressor #1 ea 02/05/24 06/21/24 Rx sodium chloride 7 % for 4 ml inhalation BID #240 mL 02/05/24 06/21/24 Rx nebulization dextromethorphan-guaifenesin 30 1 tab PO Q12H 06/04/24 06/21/24 History mg-600 mg tablet extended [id number] hr (Mucinex DM) ferrous sulfate 325 mg (65 mg 325 mg PO DAILY 06/04/24 06/21/24 History iron) tablet (FeroSul) loratadine 10 mg tablet (Allergy 10 mg PO DAILY 06/04/24 06/21/24 History Relief (loratadine)) albuterol sulfate 90 mcg/actuation 2 puff inhalation QID PRN Wheezing 06/23/24 Rx aerosol inhaler (Proventil HFA) #8.5 grams Patient History Medical History (Updated 06/23/24 @ 16:05 by Jessie Horton MD) Urachal cyst Chronic low back pain Lumbar disc disease Insomnia Surgical History S/P tonsillectomy H/O arthroscopic knee surgery S/P bronchoscopy S/P lumbar spinal arthrodesis Family History Other Coronary heart disease Diabetes Hypertension Prostate cancer Social History Smoking Status: Never smoker Tobacco Type: Cigarettes Cigarettes Per Day: 10; Second Hand Exposure: No; Do You Dip or Chew Tobacco: No; Hx Alcohol Use: No Hx Substance Use: No Preferred Language: Nepali Communication Ability: Effective Director Sanitation Bureau Required: No Beliefs That Will Affect Care: None marital status: Current Living Situation: Spouse and Family current occupational status: retired Other Information That Helps Us Care for You: No Feels Safe at Home: Yes Safety Concerns: Feels Safe At This Time Assistive Devices: None Review of Systems Neg except for what was mentioned in H&P. Physical Exam Couldn't be performed as the visit was conducted via telemed Results & Data Vital Signs (Past 12 Hours) Vital Signs Temp Pulse Pulse Resp BP BP Pulse Ox 06/23/24 15:56 37.2 C 100 H 19 115/73 93 06/23/24 11:45 72 06/23/24 10:26 36.3 C L 101 H 18 99/64 L 91 06/23/24 07:53 37.2 C 105 H 18 117/77 92 06/23/24 07:30 O2 Del Method 06/23/24 15:56 Room Air 06/23/24 11:45 06/23/24 10:26 Room Air 06/23/24 07:53 Room Air 06/23/24 07:30 Room Air Laboratory Results Microbiology: 06/20: Expectorated sputum culture growing Acinetobacter Diagnostic Findings Imaging: CT chest on 06/20/2024: 1. Large right pneumothorax, estimated at 70-80%. 2. Subsegmental changes noted in the posterior aspect of the right upper lobe and less prominently in the posterior left lower lobe. With the large pneumothorax, the primary consideration is atelectasis. Differential consideration includes contusive injury or pneumonia. 3. No evidence for pulmonary embolism Chest x-ray on 06/23/2024: Right apical pleural catheter in place. Decrease in size of a now trace right pneumothorax.
[2024-06-23] MEDS: AMIODARONE 200 MG TAB PO ONE (16:08)
[2024-06-23] MEDS: CEFEPIME 2,000 MG in SYRINGE 0 ML IV SCH (16:09)
[2024-06-23] MEDS: AMIODARONE 200 MG TAB PO SCH (20:05)
[2024-06-23] MEDS: METOPROLOL SUCC 50MG EXT REL TAB PO SCH (20:17)
[2024-06-23] MEDS: ACETAMINOPHEN 500 MG TAB PO PRN (23:09)
[2024-06-24 06:29] LABS: Basophils # (auto) 0.05 K/uL (0.00-0.20); Basophils % (auto) 0.5 %; Eosinophils # (auto) 0.05 K/uL (0.00-0.50); Eosinophils % (auto) 0.5 %; Hematocrit (blood only) 34.8 % (42.0-52.0); Hemoglobin 11.9 g/dl (14.0-18.0); Immature Granulocytes # (auto) 0.04 K/uL (0.01-0.20); Immature Granulocytes % (auto) 0.4 %; Lymphocytes # (auto) 1.83 K/uL (1.20-3.40); Lymphocytes % (auto) 18.2 %; Mean Corpuscular Hemoglobin 35.3 pg (25.0-34.0); Mean Corpuscular Hgb Conc 34.2 g/dL (32.0-36.0); Mean Corpuscular Volume 103.3 fL (80.0-100.0); Mean Platelet Volume 10.1 fL (9.4-12.4); Monocytes # (auto) 1.42 K/uL (0.11-0.59); Monocytes % (auto) 14.1 %; Neutrophils # (auto) 6.68 K/uL (1.40-6.50); Neutrophils % (auto) 66.3 %; Platelet Count 215 K/uL (130-400); RDW Coefficient of Variation 15.6 % (11.5-14.5); RDW Standard Deviation 58.1 fL (36.4-46.3); Red Blood Count 3.37 M/uL (4.70-6.10); White Blood Count 10.07 K/ul (4.8-10.8)
[2024-06-24 06:55] LABS: BUN Creatinine Ratio 28.8 (10-20); Creatinine Clr Calc Pharmacy 50.1 ml/min; Est GFR (African American) 75.4 ml/min; Est GFR (Non-African American) 65.1 ml/min; Potassium 4.3 mmol/L (3.5-5.1)
--- NOTE | 2024-06-24 07:27 | XRay Report ---
XR chest 1V portable HISTORY: 74 years-old Male f/u acute shortness of breath COMPARISON: Chest radiograph 06/23/2024 TECHNIQUE: AP view of the chest FINDINGS: Dual lead left subclavian pacer. Atherosclerosis of the aorta. Right apical pleural catheter is uncha nged. Persistent trace right apical pneumothorax mild ill-defined right basilar and upper lung airspa ce opacities. Subcutaneous emphysema of the right upper lateral chest wall. IMPRESSION: Stable positioning of the right-sided pleural catheter with stable trace apical pneumotho rax. ACT 112: Negative or not required by law. The above report was generated using voice recognition software. It may contain grammatical, syntax o r spelling errors. Electronically signed by: Rishi Minaya M.D. 06/24/2024 7:26 AM
--- NOTE | 2024-06-24 09:54 | Pulmonology Progress Note ---
Date of Service June 24, 2024 Assessment & Plan (1) Secondary spontaneous pneumothorax: (2) Tobacco use: (3) Acinetobacter baumannii as the cause of diseases classified elsewhere: (4) COPD with emphysema: Plan CT chest 06/20/2024 personally reviewed: Centrilobular emphysema appreciated bilaterally Large right-sided pneumothorax with compressive atelectasis of the right upper lobe No significant mediastinal lymphadenopathy -- Spontaneous secondary pneumothorax S/p pigtail catheter placement 06/22/2024 --COPD with emphysema On Trelegy 100 at home On Anoro and Arnuity while in the hospital --Acinetobacter baumannii appreciated on the sputum culture 06/20/2024 Previous sputum cultures have been positive for stenotrophomonas maltophilia on multiple locations latest 1 being 12/13/2023 Antibiotic as per ID --Current smoker Importance of quitting explained to the patient in depth Plan: Chest x-ray from today does not show any signs of pneumothorax on the right side I will keep the chest tube clamped. Repeat chest x-ray at 1 PM. If the repeat chest x-ray does not show any signs of pneumothorax then chest tube will be discontinued Avoid positive pressure ventilation including flutter valve right now Case was discussed with RN at bedside as well as primary team Please note the above document was generated using voice recognition software. It may contain grammatical, syntax or spelling errors.Any formal questions or concerns about the content, text or information contained within the body of this dictation should be directly addressed to the provider for clarification. Admission and Anticipated Discharge Date Admission Date: June 21, 2024 Subjective Patient seen and examined at bedside. No acute distress, no adverse events overnight He was on 3 L oxygen, saturating 97-98%, I went down to 1 L Complained of mild discomfort at the site of the chest tube. No significant chest pain Shortness of breath is improved. Still complains of cough and has difficulty bringing up the phlegm Denies any nausea vomiting Fair appetite Review of Systems 2 Review of Systems: All systems reviewed & are unremarkable except as noted in Subjective Physical Exam 2 Physical Exam: Constitutional: No acute distress HEENT: EOMI, PERRLA Respiratory system: Decreased air entry bilaterally, no wheeze, no rhonchi, positive crackles bilaterally more on the right side CVS: S1-S2 positive, no murmurs or gallops Abdomen: Soft, nontender, nondistended, positive bowel sounds x4 Extremities: +2 pulses bilaterally radialis/ dorsalis pedis, no cyanosis, no edema Neuro: Awake alert oriented x3 Psych: Normal mood and affect G/U: No Esc[place] Skin: no rashes, warm and dry Lymphatic: no cervical or axillary lymphadenopathy Results & Data Results & Data Vital Signs (Past 12 Hours) Vital Signs Temp Pulse Pulse Pulse Resp BP BP 06/24/24 07:36 36.7 C 70 19 107/77 06/24/24 07:00 70 06/24/24 00:00 99 H 06/23/24 23:00 37.2 C 88 22 96/70 L Pulse Ox O2 Del Method O2 Flow Rate 06/24/24 07:36 93 Nasal Cannula 3.0 06/24/24 07:00 06/24/24 00:00 06/23/24 23:00 93 Room Air Laboratory Results 06/24/24 05:17 06/24/24 05:17 PG Care Time/CCT Total # of Minutes Spent Total Time Spent with Patient: Total time spent is greater than 50% in coordination of care (as documented) at patient's floor/unit and/or counseling patient: Coding Level of Care Code 61061 SUB INP/OBS CARE 2/35MIN Diagnoses Secondary spontaneous pneumothorax J93.12 Tobacco use Z72.0 Acinetobacter baumannii as the cause of diseases classified elsewhere B96.83 COPD with emphysema J43.9
--- NOTE | 2024-06-24 11:01 | Electrocardiogram Report ---
Test Reason : Blood Pressure : */* mmHG Vent. Rate : 73 BPM Atrial Rate : 288 BPM P-R Int : * ms QRS Dur : 130 ms QT Int : 464 ms P-R-T Axes : * -57 99 degrees QTcB Int : 511 ms Atrial fibrillation with demand ventricular pacing Left axis deviation Non-specific intra-ventricular conduction block T wave abnormality, consider lateral ischemia Abnormal ECG When compared with ECG of 23-Jun-2024 14:51, (unconfirmed) ST no longer elevated in Anterior leads T wave inversion more evident in Anterolateral leads Confirmed by Ollie Hernandez ([id number]) on 06/24/2024 11:01:34 AM Referred By: REFERRED SELF Confirmed By: Ollie Hernandez
--- NOTE | 2024-06-24 11:08 | Electrocardiogram Report ---
Test Reason : Blood Pressure : */* mmHG Vent. Rate : 117 BPM Atrial Rate : 141 BPM P-R Int : * ms QRS Dur : 122 ms QT Int : 378 ms P-R-T Axes : * -75 95 degrees QTcB Int : 527 ms Atrial fibrillation with rapid ventricular response Left anterior fascicular block Abnormal ECG When compared with ECG of 20-Jun-2024 22:29, Atrial fibrillation has replaced Electronic ventricular pacemaker Vent. rate has increased by 46 bpm Confirmed by Ollie Hernandez ([id number] on 06/24/2024 11:08:09 AM Referred By: REFERRED SELF Confirmed By: Ollie Hernandez
--- NOTE | 2024-06-24 11:16 | Hospitalist Progress Note ---
Date of Service June 24, 2024 Assessment & Plan (1) Acute hypoxemic respiratory failure: (2) Pneumothorax, right: Plan Patient presented with shortness of breath on admission Oxygen saturation of 70s on arrival Chest x-ray showed large right-sided pneumothorax with atelectasis of right upper lung CT chest showed large right pneumothorax estimated at 70 to 80%. Status post chest tube placement in the ED Chest x-ray after chest tube placement in the ED showed improvement in pneumothorax. However in the morning of 06/22: Patient reported that he had a coughing episode in the morning. He then he started to become short of breath. He was evaluated at bedside; he was in respiratory distress; was using his accessory muscles for breathing. Respiratory rate was greater than 25. Stat chest x-ray was obtained and reviewed personally; there was significant increase in right-sided pneumothorax. A new chest tube was placed by pulmonology. Repeat chest x-ray showed resolution of pneumothorax Possible removal of chest tube today as per pulmonology. Discussed with Dr. Shabazz Sputum culture grew actinobacter baumannii; discussed with infectious disease. Recommended to continue IV cefepime during the hospitalization and discharged on Bactrim. PT OT ordered Will likely need two step oxygen evaluation at discharge Elevated troponin in setting of pneumothorax Likely demand ischemia History of hypertrophic cardiomyopathy Paroxysmal atrial fibrillation High sensitive troponin elevated at 150 on admission; up trended to 839 and downtrended Echocardiogram shows EF of greater than 70% with severe asymmetric LVH. Resting LV outflow gradient is 31 mmHg. Cardiology consulted; no further cardiac work up needed inpatient Patient went into atrial fibrillation with RVR in the evening of 06/22; discussed with cardiology. Metoprolol dose increased to 50 mg twice a day and amiodarone increased to 400 mg twice daily. Patient currently on sinus rhythm. SSS status post PPM - continue tele monitor hypertension, stable hyperlipidemia, on statin Rx prediabetes, hemoglobin A1c of 5.02 October 2023 chronic anemia, hemoglobin at the baseline ongoing tobacco use Full code DVT prophylaxis Lovenox Time spent evaluating patient, direct bedside care, chart review, placing orders, interpretation of diagnostic studies, discussion with consultants, patient, and family members, as well as other required patient management activities is 50 minutes Please note the above document was generated using voice recognition software. It may contain grammatical, syntax or spelling errors. Any formal questions or concerns about the content, text or information contained within the body of this dictation should be directly addressed to the provider for clarification Admission and Anticipated Discharge Date Admission Date: June 21, 2024 Subjective Patient seen and examined at bedside He is comfortable; not in distress Saturating well with nasal cannula No significant events overnight Review of Systems Review of Systems: All systems reviewed & are unremarkable except as noted in Subjective Physical Exam Physical Exam: GENERAL: comfortable; not in distress. SKIN: Pallor, warm HEENT: Pale palpebral conjunctivae, no ptosis, dry buccal mucosa NECK : Supple, no tenderness CHEST : Decreased breath sound at bases. HEART : RRR, no obvious murmurs ABDOMEN: no distention, nontender EXTREMITIES : No LE swelling/tenderness, no other conspicuous deformities noted NEUROLOGIC : Coherent, no facial asymmetry, no other gross focality Results & Data Results & Data Vital Signs (Past 12 Hours) Vital Signs Temp Pulse Pulse Resp BP Pulse Ox O2 Del Method 06/24/24 10:59 36.8 C 70 19 121/63 91 Nasal Cannula 06/24/24 07:36 36.7 C 70 19 107/77 93 Nasal Cannula 06/24/24 07:00 70 06/24/24 00:00 99 H O2 Flow Rate 06/24/24 10:59 1.0 06/24/24 07:36 3.0 06/24/24 07:00 06/24/24 00:00
--- NOTE | 2024-06-24 14:42 | Cardiology Progress Note ---
Date of Service June 24, 2024 Assessment & Plan (1) Paroxysmal atrial fibrillation: (2) Pneumothorax, right: (3) Acute exacerbation of chronic obstructive pulmonary disease: (4) Elevated troponin: (5) Hypertrophic cardiomyopathy: (6) PVC (premature ventricular contraction): Plan 74-year-old male presents with large right-sided pneumothorax status post chest tube placement. Significant hypoxia documented. Elevated troponin secondary to demand ischemia, type II event, due to COPD exacerbation and pneumothorax. Resting 2D transthoracic echocardiogram Demonstrates hypertrophic cardiomyopathy, preserved LV systolic function, no regional wall motion abnormality. ECG nondiagnostic due to AV pacing. History of atrial fibrillation monitored by electrophysiology. He is not chronically anticoagulated. AV paced rhythm on admission. AF burden <1% per pacemaker interrogation. [id number] 2 (age, HTN). 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 Amiodarone initiated for frequent PVCs August 2022. Management of pneumothorax/chest tube as per pulmonary medicine. 06/23/2024 Service requested to reevaluate patient after patient lapsed into atrial fibrillation last evening. Prior history of brief paroxysmal atrial fibrillation now sustained since 8 PM last evening rates modestly elevated and patient asymptomatic Issues addressed as follows 1. Paroxysmal atrial fibrillation with acute lapse less than 24 hours. Likely incited by multiple issues including acute hospital stressors of hypoxia pain and respiratory distress. [id number] score of 1 but with underlying hypertrophic cardiomyopathy: Discussed in detail with patient patient adamantly does not wish anticoagulation despite significant increase in risk of stroke. Relatively contraindicated at this time given presence of chest tube with short- term removal plans. Metoprolol succinate has been increased for rate control would continue 50 mg twice per day. Will increase amiodarone to 400 mg2 times daily Repeat EKG in a.m. Will readdress anticoagulation as course proceeds 06/24/2024 Currently without acute complaint Back in sinus rhythm since early this Issues as follows 1.Paroxysmal atrial fibrillation flutter: Continue amiodarone at 400 mg twice per day with anticipated discharge on 200 mg twice per day. Continue increased dose of metoprolol succinate Patient remains leery of anticoagulation but will discuss as course proceed. Chest tube still in place Admission and Anticipated Discharge Date Admission Date: June 21, 2024 Subjective Patient seen and examined, chart, medications, telemetry reviewed No acute complaints. Chest tube still in place but anticipated removal In atrial flutter with better controlled ventricular response rate overnight but converted converted back to sinus rhythm, atrial, ventricular paced rhythm earlier today Review of Systems Review of Systems: All systems reviewed & are unremarkable except as noted in Subjective Physical Exam Constitutional: well nourished and + thin; no acute distress Eyes: PERRL, conjunctivae normal, anicteric sclerae Neck: trachea midline, no thyromegaly Respiratory: + cough; no respiratory distress and no labored breathing Auscultation: + diminished lung sounds (right side); no crackles, no rales, no rhonchi and no wheezes Cardiovascular: Rate/Rhythm: regular rate and regular rhythm Heart Sounds: normal S1 and normal S2; no murmur Vessels: radial pulses present; no JVD and no carotid bruit Extremities: no edema Chest (Breasts): Chest: + pacemaker Gastrointestinal (Abdomen): Inspection/Auscultation: normal bowel sounds; abdomen not distended Percussion/Palpation: abdomen nontender, no guarding, abdomen not rigid and + abdomen not soft Neurologic: CN's II-XI intact bilaterally and moves all extremities; no focal motor deficits Results & Data Vital Signs (Past 12 Hours) Vital Signs Temp Pulse Pulse Resp BP Pulse Ox O2 Del Method 06/24/24 10:59 36.8 C 70 19 121/63 91 Nasal Cannula 06/24/24 07:36 36.7 C 70 19 107/77 93 Nasal Cannula 06/24/24 07:00 70 O2 Flow Rate 06/24/24 10:59 1.0 06/24/24 07:36 3.0 06/24/24 07:00 Laboratory Results Laboratory Results - last 24 hr 06/24/24 05:17 WBC 10.07 RBC 3.37 L Hgb 11.9 L Hct 34.8 L MCV 103.3 H MCH 35.3 H MCHC 34.2 RDW Std Deviation 58.1 H RDW Coeff of Iva 15.6 H Plt Count 215 MPV 10.1 Immature Gran % (Auto) 0.4 Neut % (Auto) 66.3 Lymph % (Auto) 18.2 [place] % (Auto) 14.1 Eos % (Auto) 0.5 Baso % (Auto) 0.5 Neut # (Auto) 6.68 H Lymph # (Auto) 1.83 Millard # (Auto) 1.42 H Eos # (Auto) 0.05 Baso # (Auto) 0.05 Immature Gran # (Auto) 0.04 Sodium 139 Potassium 4.3 Chloride 105 Carbon Dioxide 30 Anion Gap 4 BUN 32 H Creatinine 1.11 Est Cr Clr Drug Dosing 50.1 Est GFR ( Amer) 75.4 Est GFR (Non-Af Amer) 65.1 BUN/Creatinine Ratio 28.8 H Glucose 91 Calcium 9.0
--- NOTE | 2024-06-24 15:16 | XRay Report ---
XR chest 1V portable CLINICAL HISTORY: Pneumothorax. COMPARISON STUDY: Chest radiograph performed earlier today. FINDINGS: A right apical pleural catheter remains in place. Skin folds project over each hemithorax. No definite pneumothorax is identified. As before, there is gas within the right chest wall/supraclav icular fossa. Left subclavian pacer is in place. There is no consolidation. There is no evidence for pulmonary edema. IMPRESSION: Right apical pleural catheter in place. No definite pneumothorax. ACT 112: Negative or not required by law. Electronically signed by: Aram Tucker M.D. 06/24/2024 3:14 PM
--- NOTE | 2024-06-24 15:47 | XRay Report ---
XR chest 1V portable HISTORY: 74 years-old Male do expiratory image please. Status post placement of a left subclavian pa cer COMPARISON: 06/24/2024 TECHNIQUE: AP view of the chest FINDINGS: Status post placement of a dual lead left subclavian pacer. Cardiac silhouette is enlarged. Pulmonary vascular congestion with interstitial coarsening. Mild right midlung and right basilar opacities wit h probable small right pleural effusion. Right apical catheter remains in place. No definite pneumoth orax. IMPRESSION: Right apical catheter remains in place. No definite pneumothorax identified. ACT 112: Negative or not required by law. The above report was generated using voice recognition software. It may contain grammatical, syntax o r spelling errors. Electronically signed by: Rishi Minaya M.D. 06/24/2024 3:46 PM
[2024-06-24] MEDS: POLYETHYLENE (MIRALAX) 17 GM PACK PO PRN (20:47)
[2024-06-25 06:19] LABS: Basophils # (auto) 0.05 K/uL (0.00-0.20); Basophils % (auto) 0.7 %; Eosinophils % (auto) 1.4 %; Hematocrit (blood only) 35.5 % (42.0-52.0); Hemoglobin 12.2 g/dl (14.0-18.0); Immature Granulocytes # (auto) 0.02 K/uL (0.01-0.20); Immature Granulocytes % (auto) 0.3 %; Lymphocytes # (auto) 1.62 K/uL (1.20-3.40); Lymphocytes % (auto) 22.1 %; Mean Corpuscular Hemoglobin 35.4 pg (25.0-34.0); Mean Corpuscular Hgb Conc 34.4 g/dL (32.0-36.0); Mean Corpuscular Volume 102.9 fL (80.0-100.0); Mean Platelet Volume 10.1 fL (9.4-12.4); Monocytes # (auto) 1.05 K/uL (0.11-0.59); Monocytes % (auto) 14.3 %; Neutrophils # (auto) 4.48 K/uL (1.40-6.50); Neutrophils % (auto) 61.2 %; Platelet Count 214 K/uL (130-400); RDW Coefficient of Variation 15.5 % (11.5-14.5); Red Blood Count 3.45 M/uL (4.70-6.10); White Blood Count 7.32 K/ul (4.8-10.8)
[2024-06-25 06:36] LABS: BUN Creatinine Ratio 28.8 (10-20); Calcium 9.2 mg/dl (8.6-10.3); Creatinine Clr Calc Pharmacy 53.3 ml/min; Est GFR (African American) 81.6 ml/min; Est GFR (Non-African American) 70.4 ml/min; Potassium 4.3 mmol/L (3.5-5.1)
--- NOTE | 2024-06-25 07:37 | Pulmonology Progress Note ---
Date of Service June 25, 2024 Assessment & Plan (1) Secondary spontaneous pneumothorax: (2) Tobacco use: (3) Acinetobacter baumannii as the cause of diseases classified elsewhere: (4) COPD with emphysema: Plan CT chest 06/20/2024 personally reviewed: Centrilobular emphysema appreciated bilaterally Large right-sided pneumothorax with compressive atelectasis of the right upper lobe No significant mediastinal lymphadenopathy -- Spontaneous secondary pneumothorax S/p pigtail catheter placement 06/22/2024 --COPD with emphysema On Trelegy 100 at home On Anoro and Arnuity while in the hospital --Acinetobacter baumannii appreciated on the sputum culture 06/20/2024 Previous sputum cultures have been positive for stenotrophomonas maltophilia on multiple locations latest 1 being 12/13/2023 Antibiotic as per ID --Current smoker Importance of quitting explained to the patient in depth Plan: Chest x-ray from yesterday afternoon seem like there was a large pneumothorax on the right side, on discussing it with the radiologist it feels the patient was skinfold Repeat chest x-ray following that on expiratory films did not show any significant pneumothorax. The chest tube has been clamped since yesterday. Chest x-ray from today does not show any signs of pneumothorax Plan will be to remove the chest tube today Avoid strenuous exercise for the next 2-4 weeks No flying in an airplane for at least 4 weeks No scuba diving Case was discussed with RN at bedside as well as primary team Please note the above document was generated using voice recognition software. It may contain grammatical, syntax or spelling errors.Any formal questions or concerns about the content, text or information contained within the body of this dictation should be directly addressed to the provider for clarification. Admission and Anticipated Discharge Date Admission Date: June 21, 2024 Subjective Patient seen and examined. No acute distress, no adverse events overnight Denies any chest pain Was saturating 91-92% on room air Denied any headache, no nausea, no vomiting Still complains of cough, bringing up clear phlegm Mild discomfort at the site of the chest tube Review of Systems 2 Review of Systems: All systems reviewed & are unremarkable except as noted in Subjective Physical Exam 2 Physical Exam: Constitutional: No acute distress HEENT: EOMI, PERRLA Respiratory system: Decreased air entry bilaterally, no wheeze, no rhonchi, positive crackles bilaterally more on the right side CVS: S1-S2 positive, no murmurs or gallops Abdomen: Soft, nontender, nondistended, positive bowel sounds x4 Extremities: +2 pulses bilaterally radialis/ dorsalis pedis, no cyanosis, no edema Neuro: Awake alert oriented x3 Psych: Normal mood and affect G/U: No Escobar Skin: no rashes, warm and dry Lymphatic: no cervical or axillary lymphadenopathy Results & Data Results & Data Vital Signs (Past 12 Hours) Vital Signs Temp Pulse Pulse Resp BP BP Pulse Ox 06/25/24 07:03 36.5 C 69 19 136/77 92 06/25/24 00:00 80 06/24/24 23:00 36.5 C 71 17 118/62 92 06/24/24 20:30 O2 Del Method 06/25/24 07:03 Room Air 06/25/24 00:00 06/24/24 23:00 06/24/24 20:30 Room Air Laboratory Results 06/25/24 05:20 06/25/24 05:20 PG Care Time/CCT Total # of Minutes Spent Total Time Spent with Patient: Total time spent is greater than 50% in coordination of care (as documented) at patient's floor/unit and/or counseling patient: Coding Level of Care Code 34614 SUB INP/OBS CARE 2/35MIN Diagnoses Secondary spontaneous pneumothorax J93.12 Tobacco use Z72.0 Acinetobacter baumannii as the cause of diseases classified elsewhere B96.83 COPD with emphysema J43.9
--- NOTE | 2024-06-25 07:40 | XRay Report ---
XR chest 1V portable CLINICAL HISTORY: f/u COMPARISON STUDY: Chest radiograph June 24, 2024 at 3:32 PM. FINDINGS: Right apical pleural catheter is in place. No pneumothorax is identified. Skin folds projec t over the chest. Left subclavian pacer is in place. There may be patchy right midlung opacity. No ev idence for pulmonary edema. IMPRESSION: Right apical pleural catheter in place. No pneumothorax identified. ACT 112: Negative or not required by law. Electronically signed by: Aram Tucker M.D. 06/25/2024 7:39 AM
[2024-06-25 11:19] VITALS: TEMP 97.9
--- NOTE | 2024-06-25 11:19 | Cardiology Progress Note ---
Date of Service June 25, 2024 Assessment & Plan (1) Paroxysmal atrial fibrillation: (2) Pneumothorax, right: (3) Acute exacerbation of chronic obstructive pulmonary disease: (4) Elevated troponin: (5) Hypertrophic cardiomyopathy: (6) PVC (premature ventricular contraction): Plan 74-year-old male presents with large right-sided pneumothorax status post chest tube placement. Significant hypoxia documented. Elevated troponin secondary to demand ischemia, type II event, due to COPD exacerbation and pneumothorax. Resting 2D transthoracic echocardiogram Demonstrates hypertrophic cardiomyopathy, preserved LV systolic function, no regional wall motion abnormality. ECG nondiagnostic due to AV pacing. History of atrial fibrillation monitored by electrophysiology. He is not chronically anticoagulated. AV paced rhythm on admission. AF burden <1% per pacemaker interrogation. [id number] 2 (age, HTN). 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 Amiodarone initiated for frequent PVCs August 2022. Management of pneumothorax/chest tube as per pulmonary medicine. 06/23/2024 Service requested to reevaluate patient after patient lapsed into atrial fibrillation last evening. Prior history of brief paroxysmal atrial fibrillation now sustained since 8 PM last evening rates modestly elevated and patient asymptomatic Issues addressed as follows 1. Paroxysmal atrial fibrillation with acute lapse less than 24 hours. Likely incited by multiple issues including acute hospital stressors of hypoxia pain and respiratory distress. [id number] score of 1 but with underlying hypertrophic cardiomyopathy: Discussed in detail with patient patient adamantly does not wish anticoagulation despite significant increase in risk of stroke. Relatively contraindicated at this time given presence of chest tube with short- term removal plans. Metoprolol succinate has been increased for rate control would continue 50 mg twice per day. Will increase amiodarone to 400 mg2 times daily Repeat EKG in a.m. Will readdress anticoagulation as course proceeds 06/24/2024 Currently without acute complaint Back in sinus rhythm since early this Issues as follows 1.Paroxysmal atrial fibrillation flutter: Continue amiodarone at 400 mg twice per day with anticipated discharge on 200 mg twice per day. Continue increased dose of metoprolol succinate Patient remains leery of anticoagulation but will discuss as course proceed. Chest tube still in place 06/25/2024 No further arrhythmias, cardiac status stable 1. Paroxysmal atrial fibrillation flutter precipitated by acute hospitalization and illness. Has returned to sinus rhythm with ventricular paced rhythm Recommendations continue increased dose of metoprolol succinate. Continue amiodarone 200 mg twice per day x 2 weeks or until seen on scheduled appointment on 1017. Patient declines anticoagulation 2. Hypertrophic cardiomyopathy with scheduled follow Admission and Anticipated Discharge Date Admission Date: June 21, 2024 Subjective Patient seen and examined, chart, medications, telemetry reviewed. No cardiac complaints this morning. Remains sinus with ventricular paced rhythm on telemetry. No further atrial fibrillation Chest tube removed this morning Review of Systems Review of Systems: All systems reviewed & are unremarkable except as noted in Subjective Physical Exam Constitutional: well nourished and + thin; no acute distress Eyes: PERRL, conjunctivae normal, anicteric sclerae Neck: trachea midline, no thyromegaly Respiratory: + cough (Improved); no respiratory distr ess and no labored breathing Auscultation: + diminished lung sounds (right side); no crackles, no rales, no rhonchi and no wheezes Cardiovascular: Rate/Rhythm: regular rate and regular rhythm Heart Sounds: normal S1 and normal S2; no murmur Vessels: radial pulses present; no JVD and no carotid bruit Extremities: no edema Chest (Breasts): Chest: + pacemaker Gastrointestinal (Abdomen): Inspection/Auscultation: normal bowel sounds; abdomen not distended Percussion/Palpation: abdomen nontender, no guarding, abdomen not rigid and + abdomen not soft Neurologic: CN's II-XI intact bilaterally and moves all extremities; no focal motor deficits Results & Data Vital Signs (Past 12 Hours) Vital Signs Temp Pulse Pulse Resp BP Pulse Ox O2 Del Method 06/25/24 07:03 36.5 C 69 19 136/77 92 Room Air 06/25/24 07:00 70 06/25/24 00:00 80 Laboratory Results Laboratory Results - last 24 hr 06/25/24 05:20 WBC 7.32 RBC 3.45 L Hgb 12.2 L Hct 35.5 L MCV 102.9 H MCH 35.4 H MCHC 34.4 RDW Std Deviation 58.0 H RDW Coeff of Iva 15.5 H Plt Count 214 MPV 10.1 Immature Gran % (Auto) 0.3 Neut % (Auto) 61.2 Lymph % (Auto) 22.1 [place] % (Auto) 14.3 Eos % (Auto) 1.4 Baso % (Auto) 0.7 Neut # (Auto) 4.48 Lymph # (Auto) 1.62 [place] # (Auto) 1.05 H Eos # (Auto) 0.10 Baso # (Auto) 0.05 Immature Gran # (Auto) 0.02 Sodium 140 Potassium 4.3 Chloride 103 Carbon Dioxide 31 Anion Gap 6 BUN 30 H Creatinine 1.04 Est Cr Clr Drug Dosing 53.3 Est GFR ( Amer) 81.6 Est GFR (Non-Af Amer) 70.4 BUN/Creatinine Ratio 28.8 H Glucose 90 Calcium 9.2
--- NOTE | 2024-06-25 11:29 | Hospitalist Progress Note ---
Date of Service June 25, 2024 Assessment & Plan (1) Pneumothorax: (2) Acute hypoxemic respiratory failure: Plan: Patient presented with shortness of breath on admission. Oxygen saturation of 70s on arrival. Chest x-ray showed large right-sided pneumothorax with atelectasis of right upper lung. CT chest showed large right pneumothorax estimated at 70 to 80%. S/P chest tube placement in the ED Acute respiratory failure with hypoxia Spontaneous secondary right pneumothorax COPD with Emphysema --CTA: Large right pneumothorax, estimated at 70-80%. Subsegmental changes noted in the posterior aspect of the right upper lobe and less prominently in the posterior left lower lobe. With the large pneumothorax, the primary consideration is atelectasis. Differential consideration includes contusive injury or pneumonia. No evidence for pulmonary embolism. -- BioFire negative --S/P chest tube placement initially and later pigtail catheter placement on 06/22/2024 -- Sputum cultures grew actinobacter baumannii -- Appreciate pulmonology input --Pigtail catheter removed on 06/25/24 -- Continue IV cefepime> plan to discharge on Bactrim --Will do 2 step prior to discharge -- Needs follow-up with pulmonology with repeat chest x-ray in 1 week Elevated troponin in setting of pneumothorax Likely demand ischemia History of hypertrophic cardiomyopathy Paroxysmal atrial fibrillation --Echocardiogram shows EF of greater than 70% with severe asymmetric LVH. Resting LV outflow gradient is 31 mmHg. -- Metoprolol dose increased to 50 mg twice a day --Plan to discharge on amiodarone 200 mg twice a day as recommended by cardiology Appreciate cardiology input Needs follow-up with cardiology on discharge Other chronic conditions: SSS status post PPM -continue medications as above Hypertension, stable Hyperlipidemia, on statin Rx Prediabetes, hemoglobin A1c of 5.02 October 2023 chronic anemia, hemoglobin at the baseline ongoing tobacco use Code Status Full code DVT Px: Lovenox SQ Admission and Anticipated Discharge Date Admission Date: June 21, 2024 Subjective Patient is seen and examined at bedside States having chronic cough which is unchanged Chest tube removed today Denies any chest pain, nausea, vomiting, shortness of breath Discussed with pulmonology and cardiology today Eager to get discharged home Review of Systems Review of Systems: All systems reviewed & are unremarkable except as noted in Subjective Physical Exam Physical Exam: Physical Exam: Vitals signs as noted above General Appearance: Thin, frail, chronically appearing, no apparent distress Head: normocephalic, Atraumatic Eyes: normal inspection, EOMI Neck: supple, Trachea midline Respiratory/Chest: Decreased breath sounds, CTA, No accessory muscle use Cardiovascular: S1, S2, No murmur, + pacer Abdomen/GI:Soft, Non tender, Bowel sounds present Extremities/Musculoskeletal:normal inspection, no edema Neurologic/Psych:AAOX3, grossly no focal neurological deficits Skin: normal color, warm Results & Data Results & Data Vital Signs (Past 12 Hours) Vital Signs Temp Pulse Pulse Resp BP Pulse Ox O2 Del Method 06/25/24 07:03 36.5 C 69 19 136/77 92 Room Air 06/25/24 07:00 70 06/25/24 00:00 80 Laboratory Results Short CBC 06/25/24 Range/Units 05:20 WBC 7.32 (4.8-10.8) K/ul Hgb 12.2 L (14.0-18.0) g/dl Hct 35.5 L (42.0-52.0) % Plt Count 214 (130-400) K/uL BMP 06/25/24 05:20 Sodium 140 Potassium 4.3 Chloride 103 Carbon Dioxide 31 BUN 30 H Creatinine 1.04 Glucose 90 Calcium 9.2
--- NOTE | 2024-06-25 12:39 | Procedure Note ---
Procedure Note Date of Service June 25, 2024 Procedure: Pigtail chest tube removal [employer] Manager: Dr. Mary Shabazz Indication: Normal indicated Consent: Verbal consent obtained from the patient Anesthesia: None Procedure: Under sterile and aseptic measures, all dressing was removed. The suture was removed. The pigtail catheter was pulled on exhalation. It was found to be intact. Vaseline gauze was placed, 4 x 4 gauze on top of that and dressed with Medipore tape The patient tolerated the procedure without obvious complication Complications: None Blood loss: None [facility] [place] Codes (Charges) Pulmonary/Thoracic Procedure 1: Pulmonary and Thoracic: 40937 Remove lung catheter Coding CPT Codes Pulmonary/Thoracic - Pulmonary and Thoracic: 56966 Remove lung catheter ([id number]) Additional Codes Date of Service (PG.SURGERY)
[2024-06-25 13:28] VITALS: BP 136/77; PULSE 88; RESP 20; O2SAT 92
--- NOTE | 2024-06-25 14:20 | Discharge Summary ---
Date of Service June 25, 2024 Admission HPI Per Admitting Provider History obtained from patient, family, and records. Medical history significant for SSS status post PPM, nonocclusive CAD, NSVT/PVCs, HOCM, rheumatic fever as per records hypertension, hyperlipidemia, COPD, pulmonary nodules, GERD, prediabetes, BPH, chronic anemia (baseline hemoglobin 12-13), chronic pain on narcotics, ongoing tobacco abuse. Last admission September 2023 for dizziness/presyncope possibly from dehydration. Patient just returned from [facility] vacation 2 days ago. [place] very tired upon arrival at home. Yesterday, patient noted worsening SOB on exertion, cough symptoms productive of white sputum more than usual. Minimal substernal discomfort. Worsening symptoms last night. EMS called to patient's home. O2 sat 70s on room air upon EMS arrival. Minimal response to neb treatment administered. Solu-Medrol, neb treatment administered at the ER. CT chest showed 1. Large right pneumothorax, estimated at 70-80%. 2. Subsegmental changes noted in the posterior aspect of the right upper lobe and less prominently in the posterior left lower lobe. With the large pneumothorax, the primary consideration is atelectasis. Differential consideration includes contusive injury or pneumonia. 3. No evidence for pulmonary embolism. Pneumothorax catheter placed at the ER. Patient feeling much better. 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 Admission Exam Per Admitting Provider GENERAL: Comfortable, pleasant, no respiratory distress SKIN: Pallor, warm HEENT: Pale palpebral conjunctivae, no ptosis, dry buccal mucosa NECK : Supple, no tenderness CHEST : Decreased breath sounds, minimal right chest wall tenderness, right chest wall catheter HEART : RRR, no obvious murmurs ABDOMEN: no distention, nontender EXTREMITIES : No LE swelling/tenderness, no other conspicuous deformities noted NEUROLOGIC : Coherent, no facial asymmetry, no other gross focality Principal Diagnosis Acute respiratory failure with hypoxia Spontaneous secondary right pneumothorax Chronic Bronchitis Discharge Data Allergies Allergy/AdvReac Type Severity Reaction Status Date / Time bee venom protein (honey bee) Allergy Unknown localized Verified 06/04/24 08:58 swelling Penicillins Allergy Unknown rash Verified 06/04/24 08:58 poison nani extract Allergy Unknown Rash Verified 06/24/24 18:33 poison oak extract Allergy Unknown Rash Verified 06/24/24 18:33 tetracycline AdvReac Unknown STAINS Verified 06/04/24 08:58 TEETH Consultations 06/21/24 00:05 ED Decision to Admit Stat 06/21/24 01:16 Consult Pulmonology Routine 06/21/24 07:42 Consult Cardiology Routine 06/22/24 14:14 Consult Infectious Diseases Routine 06/24/24 13:57 Consult Cardiology Routine Procedures Performed Laboratory Results WBC 7.32 K/ul (4.8-10.8) 06/25/24 05:20 RBC 3.45 M/uL (4.70-6.10) L 06/25/24 05:20 Hgb 12.2 g/dl (14.0-18.0) L 06/25/24 05:20 POC Hgb 12.6 g/dl (14.0-18.0) L 06/20/24 22:33 Hct 35.5 % (42.0-52.0) L 06/25/24 05:20 POC Hct 37 % (42-52) L 06/20/24 22:33 MCV 102.9 fL (80.0-100.0) H 06/25/24 05:20 MCH 35.4 pg (25.0-34.0) H 06/25/24 05:20 MCHC 34.4 g/dL (32.0-36.0) 06/25/24 05:20 RDW Std Deviation 58.0 fL (36.4-46.3) H 06/25/24 05:20 RDW Coeff of Iva 15.5 % (11.5-14.5) H 06/25/24 05:20 Plt Count 214 K/uL (130-400) 06/25/24 05:20 MPV 10.1 fL (9.4-12.4) 06/25/24 05:20 Immature Gran % (Auto) 0.3 % 06/25/24 05:20 Neut % (Auto) 61.2 % 06/25/24 05:20 Lymph % (Auto) 22.1 % 06/25/24 05:20 [place] % (Auto) 14.3 % 06/25/24 05:20 Eos % (Auto) 1.4 % 06/25/24 05:20 Baso % (Auto) 0.7 % 06/25/24 05:20 Neut # (Auto) 4.48 K/uL (1.40-6.50) 06/25/24 05:20 Lymph # (Auto) 1.62 K/uL (1.20-3.40) 06/25/24 05:20 [place] # (Auto) 1.05 K/uL (0.11-0.59) H 06/25/24 05:20 Eos # (Auto) 0.10 K/uL (0.00-0.50) 06/25/24 05:20 Baso # (Auto) 0.05 K/uL (0.00-0.20) 06/25/24 05:20 Immature Gran # (Auto) 0.02 K/uL (0.01-0.20) 06/25/24 05:20 Absolute Nucleated RBC 0.02 K/uL (0.00-0.12) 06/20/24 22:28 Nucleated RBC % (auto) 0.1 % 06/20/24 22:28 VBG pH 7.31 (7.36-7.41) L 06/21/24 01:53 VBG pCO2 56 mmHg (38-50) H 06/21/24 01:53 VBG pO2 24 mmHg 06/21/24 01:53 VBG HCO3 28 mmol/L 06/21/24 01:53 VBG O2 Saturation < 60.0 % 06/21/24 01:53 VBG Base Excess 0.8 mEq/L 06/21/24 01:53 POC Sodium 142 mmol/L (135-144) 06/20/24 22:33 Sodium 140 mmol/L (136-145) 06/25/24 05:20 POC Potassium 4.3 mmol/L (3.3-5.0) 06/20/24 22:33 Potassium 4.3 mmol/L (3.5-5.1) 06/25/24 05:20 POC Chloride 103 mmol/L (101-112) 06/20/24 22:33 Chloride 103 mmol/L (98-107) 06/25/24 05:20 Carbon Dioxide 31 mmol/L (21-32) 06/25/24 05:20 POC Total CO2 30 mmol/L (24-31) 06/20/24 22:33 Anion Gap 6 (3-11) 06/25/24 05:20 POC Anion Gap 14.0 mmol/L (16-25) L 06/20/24 22:33 POC BUN 33 mg/dl (7-18) H 06/20/24 22:33 BUN 30 mg/dl (6-23) H 06/25/24 05:20 Creatinine 1.04 mg/dl (0.6-1.4) 06/25/24 05:20 POC Creatinine 1.5 mg/dl (0.6-1.3) H 06/20/24 22:33 Est Cr Clr Drug Dosing 53.3 ml/min 06/25/24 05:20 Est GFR ( Amer) 81.6 ml/min 06/25/24 05:20 Est GFR (Non-Af Amer) 70.4 ml/min 06/25/24 05:20 BUN/Creatinine Ratio 28.8 (10-20) H 06/25/24 05:20 Glucose 90 mg/dl (70-99(Fasting)) 06/25/24 05:20 POC Glucose (other) 132 mg/dl (70-99) H 06/20/24 22:33 Calcium 9.2 mg/dl (8.6-10.3) 06/25/24 05:20 POC Ioniz Calcium [place] 1.19 mmol/l (1.12-1.32) 06/20/24 22:33 Magnesium 2.3 mg/dl (1.7-2.4) 06/22/24 05:57 Total Bilirubin 0.7 mg/dl (0.2-1.0) 06/20/24 22:28 AST 30 U/L (13-39) 06/20/24 22:28 ALT 24 U/L (7-52) 06/20/24 22:28 Alkaline Phosphatase 43 U/L (34-104) 06/20/24 22:28 Troponin I High Sens 710.2 pg/ml (0-20) H* 06/21/24 20:45 B-Natriuretic Peptide 320 pg/ml (0-100) H 06/20/24 22:28 Total Protein 6.8 gm/dl (6.0-8.3) 06/20/24 22:28 Albumin 4.5 gm/dl (3.4-5.0) 06/20/24 22:28 Globulin 2.3 gm/dl (2.5-4.0) L 06/20/24 22:28 Albumin/Globulin Ratio 2.0 (0.9-2) 06/20/24 22:28 Lipase 21 U/L (11-82) 06/20/24 22:28 Adenovirus (PCR) Not Detected (NotDetected) 06/20/24 22:28 B. pertussis DNA (PCR) Not Detected (NotDetected) 06/20/24 22:28 B.parapertussis DNA PCR Not Detected (NotDetected) 06/20/24 22:28 C. pneumoniae DNA (PCR) Not Detected (NotDetected) 06/20/24 22:28 Coronavirus OC43 (PCR) Not Detected (NotDetected) 06/20/24 22:28 Coronavirus HKU1 (PCR) Not Detected (NotDetected) 06/20/24 22:28 Coronavirus 229E (PCR) Not Detected (NotDetected) 06/20/24 22:28 SARS-CoV-2 (PCR) Not Detected (NotDetected) 06/20/24 22:28 Coronavirus NL63 (PCR) Not Detected (NotDetected) 06/20/24 22:28 Human Metapneumovir PCR Not Detected (NotDetected) 06/20/24 22:28 Influenza Type A (PCR) Not Detected (NotDetected) 06/20/24 22:28 Influenza Type B (PCR) Not Detected (NotDetected) 06/20/24 22:28 M. pneumoniae (PCR) Not Detected (NotDetected) 06/20/24 22:28 Parainfluenza 1 (PCR) Not Detected (NotDetected) 06/20/24 22:28 Parainfluenza 2 (PCR) Not Detected (NotDetected) 06/20/24 22:28 Parainfluenza 3 (PCR) Not Detected (NotDetected) 06/20/24 22:28 Parainfluenza 4 (PCR) Not Detected (NotDetected) 06/20/24 22:28 RSV (PCR) Not Detected (NotDetected) 06/20/24 22:28 Entero/Rhino (PCR) Not Detected (NotDetected) 06/20/24 22:28 Impressions Chest CTA 06/20/24 22:34 CR Exam(s): CTA CHEST IV Amt: 119 ml opti 320 EXAM: CT Angiography Chest With Intravenous Contrast CLINICAL HISTORY: Evaluation for potential pulmonary embolism. PE. TECHNIQUE: Axial computed tomographic angiography images of the chest with intravenous contrast. CTDI is 10.59 mGy and DLP is 408.31 mGy-cm. Automated exposure control was utilized for the study. A dose lowering technique was utilized adhering to the principles of ALARA. MIP reconstructed images were created and reviewed. COMPARISON: No relevant prior studies available. FINDINGS: Pulmonary arteries: No evidence for pulmonary embolism. Aorta: Atherosclerotic calcification of the aorta. No aneurysm. Lungs: Subsegmental changes noted in the posterior aspect of the right upper lobe and less prominently in the posterior left lower lobe. Minimal dependent subsegmental changes in the posterior left upper lobe. Pleural space: Large right pneumothorax, estimated at 70-80%. No significant effusion. Heart: The cardiac chambers are enlarged. Asymmetric thickening of the interventricular septum. Bones/joints: Accounting for mild respiratory artifact, no definite displaced rib fracture. The remaining osseous structures are unremarkable. No dislocation. Soft tissues: Unremarkable. Lymph nodes: Nonspecific subcentimeter AP window lymph nodes. Tubes, lines and devices: Dual lead left subclavian approach pacer. IMPRESSION: 1. Large right pneumothorax, estimated at 70-80%. 2. Subsegmental changes noted in the posterior aspect of the right upper lobe and less prominently in the posterior left lower lobe. With the large pneumothorax, the primary consideration is atelectasis. Differential consideration includes contusive injury or pneumonia. 3. No evidence for pulmonary embolism. Communications: Call Doctor Pneumothorax Electronically signed by: Sam Niño MD 06/20/24 23:42 PM Chest X-Ray 06/25/24 07:00 XR chest 1V portable CLINICAL HISTORY: f/u COMPARISON STUDY: Chest radiograph June 24, 2024 at 3:32 PM. FINDINGS: Right apical pleural catheter is in place. No pneumothorax is identified. Skin folds project over the chest. Left subclavian pacer is in place. There may be patchy right midlung opacity. No evidence for pulmonary edema. IMPRESSION: Right apical pleural catheter in place. No pneumothorax identified. ACT 112: Negative or not required by law. Electronically signed by: Aram Tucker M.D. 06/25/2024 7:39 AM Ordered Studies 06/20/24 22:34 CT angio chest PE protocol Stat Hospital Course (1) Pneumothorax: (2) Acute hypoxemic respiratory failure: Patient presented with shortness of breath on admission. Oxygen saturation of 70s on arrival. Chest x-ray showed large right-sided pneumothorax with atelectasis of right upper lung. CT chest showed large right pneumothorax estimated at 70 to 80%. S/P chest tube placement in the ED Acute respiratory failure with hypoxia Spontaneous secondary right pneumothorax COPD with Emphysema --CTA: Large right pneumothorax, estimated at 70-80%. Subsegmental changes noted in the posterior aspect of the right upper lobe and less prominently in the posterior left lower lobe. With the large pneumothorax, the primary consideration is atelectasis. Differential consideration includes contusive injury or pneumonia. No evidence for pulmonary embolism. -- BioFire negative --S/P chest tube placement initially and later pigtail catheter placement on 06/22/2024 -- Sputum cultures grew actinobacter baumannii -- Appreciate pulmonology input --Pigtail catheter removed on 06/25/24 -- Continue IV cefepime> plan to discharge on Bactrim --2 step: did not qualify for oxygen -- Needs follow-up with pulmonology with repeat chest x-ray in 1 week Elevated troponin in setting of pneumothorax Likely demand ischemia History of hypertrophic cardiomyopathy Paroxysmal atrial fibrillation --Echocardiogram shows EF of greater than 70% with severe asymmetric LVH. Resting LV outflow gradient is 31 mmHg. -- Metoprolol dose increased to 50 mg twice a day --Plan to discharge on amiodarone 200 mg twice a day as recommended by cardiology Appreciate cardiology input Needs follow-up with cardiology on discharge Other chronic conditions: SSS status post PPM -continue medications as above Hypertension, stable Hyperlipidemia, on statin Rx Prediabetes, hemoglobin A1c of 5.02 October 2023 chronic anemia, hemoglobin at the baseline ongoing tobacco use Code Status Full code DVT Px: Lovenox SQ Total Time Total Time Spent Total Time Spent (In Minutes): 48 minutes Discharge Plan Discharge Items Patient Disposition: Home - Self-Care Reason For Visit: RESP FAILURE Discharge Diagnosis: Acute respiratory failure with hypoxia Spontaneous secondary right pneumothorax Chronic Bronchitis Condition on Discharge: Fair Activity: Per Instructions section Exercise/Sports: Wait until after follow-up appointment Non-emergency contact: Primary Care Provider and Skilled Nursing Facility Counselor Call non-emergency contact if: you have any medication questions, your symptoms worsen, your pain is concerning for you and you have a fever Follow-up/Referrals: Daja Purcell CRNP [Nurse Practitioner] - (Date & Time 07/11/2024 8:30 AM Provider Daja Purcell CRNP Department Cardiology, [facility] ) Lawson Dudley MD [Physician] - 07/08/24 9:30 am (This appointment is with Emanuel Calderon. Please contact the office to ask about a 1 week chest xray.) Sarabjit Werner DO [Primary Care Provider] - (Date & Time 06/30/2024 11:00 AM Provider Sarabjit Werner DO Department [facility] ) Diet: Heart Healthy Addtl Attending Provider Instructions: Follow-up with your primary care physician Dr. Werner on 11:00 AM Follow-up with your technical specialist cytology Dr. Dudley with repeat chest x-ray in 1 week as recommended. -- Complete the antibiotic course Bactrim DS 2 tabs Twice a day for 10 days as prescribed/recommended by Infectious Disease. Seek immediate medical attention if your symptoms reoccur or worsen Please take all medications as instructed on discharge list below. Please call if you have any questions or problems. You can reach a [facility] hospitalist on duty at [facility] [address] 24 hours a day by calling [phone] Pending Studies at Discharge: No Stand-Alone Forms: My [facility], Smoking Cessation Medications and DC Order Prescriptions: New metoprolol succinate 50 mg Tablet Extended Release 24 Hr 50 mg PO BID Qty: 60 1RF sennosides-docusate sodium [Senokot-S] 8.6-50 mg Tablet 1 tab PO QAM PRN (Reason: constipation) Qty: 30 0RF polyethylene glycol 3350 [Miralax] 17 gram Powder In Packet 17 g PO DAILY PRN (Reason: constipation) Qty: 30 0RF benzonatate 100 mg Capsule 100 mg PO TID PRN (Reason: cough) Qty: 30 0RF sulfamethoxazole-trimethoprim [Bactrim DS] 800-160 mg tablet 2 tab PO BID 10 Days Qty: 40 0RF Continued albuterol sulfate [Proventil HFA] 90 mcg/actuation HFA aerosol inhaler 2 puff INHALATION QID PRN (Reason: Wheezing) Qty: 8.5 5RF famotidine 40 mg tablet 40 mg PO BID dutasteride 0.5 mg capsule 0.5 mg PO DAILY atorvastatin 40 mg tablet 40 mg PO PM celecoxib [Celebrex] 100 mg capsule 100 mg PO PM Rx Instructions: Takes with dinner magnesium oxide 400 mg PO PM Rx Instructions: takes with dinner gabapentin [Neurontin] 300 mg capsule 300 mg PO BID Nucynta ER 50 mg tablet extended release 12 hr 50 mg PO BID Neilmed Sinus Rinse Complete Packet With Rinse Device See Rx Instructions .Route .COMPLEX Qty: 50 3RF Rx Instructions: use daily; ferrous sulfate [FeroSul] 325 mg (65 mg iron) tablet 325 mg PO DAILY loratadine [Allergy Relief (loratadine)] 10 mg tablet 10 mg PO DAILY (DME) nebulizer accessories Kit See Rx Instructions .Route Qty: 1 0RF Rx Instructions: As directed (DME) nebulizer and compressor Device See Rx Instructions .Route Qty: 1 0RF Rx Instructions: As directed sodium chloride 7 % solution for nebulization 4 ml inhalation BID Qty: 240 3RF ascorbic acid (vitamin C) 1,000 mg Tablet 1 g PO DAILY Rx Instructions: takes at noon epinephrine 0.3 mg/0.3 mL Auto-Injector 1 ml subcut DAILY PRN (Reason: Anaphylaxis) vitamin B complex Capsule 1 cap PO PM Rx Instructions: takes with dinner cholecalciferol (vitamin D3) 25 mcg (1,000 unit) Capsule 25 mcg PO PM Rx Instructions: Takes with dinner coenzyme Q10 100 mg Capsule 100 mg PO DAILY Rx Instructions: takes with dinner calcium carbonate 500 mg calcium (1,250 mg) Tablet,Chewable 1,000 mg PO HS Trelegy Ellipta 100-62.5-25 mcg blister with device 2 inh INHALATION DAILY Changed amiodarone 200 mg tablet 200 mg PO BID Qty: 60 1RF Held potassium chloride [Klor-Con M20] 20 mEq tablet,ER particles/crystals 20 meq PO PM Hold Instructions: Hold while taking Bactrim--antibiotic course for 1 week. Rx Instructions: takes with dinner Mucinex DM 30-600 mg tablet extended release 12 hr 1 tab PO Q12H Hold Instructions: Hold until further recommendations from your technical specialist cytology. (DME) Flutter Valve Device See Rx Instructions .MEDSUPPLY Qty: 1 0RF Hold Instructions: Hold until further recommendations from your technical specialist cytology. Rx Instructions: Use after nebulizer treatment and as needed during the day. Discontinued metoprolol succinate 25 mg tablet extended release 24 hr 25 mg PO BID Qty: 60 0RF Discharge Orders: Discharge Order (Routine); Ordered 06/25/24 Ordered By: Wisam Duffy Admission Data Admit Date/Time: 06/21/24 00:22 Attending Provider: Wisam Duffy Admit Provider: Junior Byrne Primary Care Provider: Sarabjit Werner Other Providers: Junior Byrne; Kt Borges; Amando Hugo; Inocente Silva; Lauri Huang I.; Benjamin Saavedra II; Miriam Clark; Vahe Ness; Kristian Geiger; Jessie Horton; Jaden Bonilla Other Interventions: Discharge Summary Assessment (RN) Last Done: 06/25/24 13:27
[2024-06-26] MEDS ORDERED: CEFEPIME 2000MG 2,000 MG/20 ML SYR IV SCH (16:00)
== END 2024-06-25 15:22 | disposition home or self-care (01) | DRG 190 ==
LOC: ED 22:21 → SUATTDRO 06-21 00:22 → EDINP 06-21 00:22 → 2E 06-21 01:16